=== PATIENT | male | born 1940 | race Caucasian/White ===

== ENCOUNTER 2017-09-29 11:27 | Emergency (ER) | payer MEDICARE, OTHER ==
[2017-09-29 11:37] VITALS: BP 155/62
--- NOTE | 2017-09-29 12:54 | EDM.PDOC ---
ED HPI GENERAL MEDICAL PROBLEM - General Chief Complaint: Lower Extremity Injury/Pain Stated Complaint: R KNEE PAIN Time Seen by Provider: 09/29/17 11:47 Source of Information: Reports: Patient History Limitations: Reports: No Limitations - History of Present Illness INITIAL COMMENTS - FREE TEXT/NARRATIVE: The patient presents with right knee pain. He was stepping down today and he felt pain in his right knee. He did not step wrong and he did not twist his knee. He has no other injury. He has no history of troubles with that knee. Onset: Sudden Duration: Hour(s): (This morning) Location: Reports: Lower Extremity, Right (Knee) Quality: Reports: Sharp Severity: Moderate Improves with: Reports: Immobilization Worsens with: Reports: Movement Associated Symptoms: Reports: No Other Symptoms Right Knee Pain Score (Numeric/FACES): 4 - Related Data Allergies Allergy/AdvReac Type Severity Reaction Status Date / Time PRANEETH Inhibitors Allergy Severe Other Verified 09/29/17 11:36 meperidine HCl [From Demerol] Allergy Hypotension Verified 09/29/17 11:36 Home Meds: Home Meds Albuterol Sulfate [Albuterol Sulfate HFA] 2 puff INH Q6HR PRN 06/29/14 [History] Budesonide/Formoterol [Symbicort 80-4.5 MCG] 2 puff INH BID 06/29/14 [History] Xqrhwut-Kjg-Ilflzoh D 500 mg PO DAILY 06/29/14 [History] Lisinopril 10 mg PO DAILY 06/29/14 [History] Metoprolol Succinate 75 mg PO DAILY 06/29/14 [History] Multivitamin [Multi-Vitamin Daily] 1 tab PO DAILY 06/29/14 [History] [place]-3 Fatty Acids [[place]-3] 1,000 mg PO DAILY 06/29/14 [History] Vitamin B Complex 1 tab PO BID 06/29/14 [History] Escitalopram [Lexapro] 10 mg PO DAILY 04/14/15 [History] Apixaban [Eliquis] 5 mg PO BID 09/01/15 [History] Aspirin [Adult Low Dose Aspirin EC] 81 mg PO DAILY 09/01/15 [History] Benzonatate [Tessalon Perles] 200 mg PO TID PRN 7 Days cap 09/04/15 [Rx] Levofloxacin [Levaquin] 750 mg PO DAILY #7 tablet 09/04/15 [Rx] guaiFENesin [Mucinex] 1,200 mg PO BID 7 Days tab.er 09/04/15 [Rx] predniSONE 10 mg PO WITHBREAKFAST 7 Days tablet 09/04/15 [Rx] Past Medical History HEENT History: Reports: Impaired Vision Cardiovascular History: Reports: Afib, Bypass, CAD, Hypertension, Pacemaker, Other (See Below) Other Cardiovascular History: dizziness Respiratory History: Reports: Other (See Below) Other Respiratory History: pt uses 2 pillows to sleep-has c-pap at home Musculoskeletal History: Reports: Back Pain, Chronic, Other (See Below) Other Musculoskeletal History: low back surgery Neurological History: Reports: CVA Psychiatric History: Reports: Anxiety, Other (See Below) Other Psychiatric History: claustophobic Endocrine/Metabolic History: Reports: Hypothyroidism - Past Surgical History GI Surgical History: Reports: Cholecystectomy, Hernia, Abdominal Social & Family History - Family History Family Medical History: Noncontributory - Tobacco Use Smoking Status *Q: Former Smoker Used Tobacco, but Quit: Yes Month/Year Tobacco Last Used: 45 years - Caffeine Use Caffeine Use: Reports: Coffee - Recreational Drug Use Recreational Drug Use: No Review of Systems - Review of Systems Review Of Systems: See Below Constitutional: Reports: No Symptoms Eyes: Reports: No Symptoms Ears: Reports: No Symptoms Nose: Reports: No Symptoms Mouth/Throat: Reports: No Symptoms Respiratory: Reports: No Symptoms Cardiovascular: Reports: No Symptoms GI/Abdominal: Reports: No Symptoms Genitourinary: Reports: No Symptoms Musculoskeletal: Reports: Joint Pain (Right knee) Skin: Reports: No Symptoms ED EXAM, GENERAL - Physical Exam Exam: See Below Exam Limited By: No Limitations General Appearance: Alert, No Apparent Distress Ears: Normal External Exam Nose: Normal Inspection Head: Atraumatic, Normocephalic Neck: Normal Inspection Respiratory/Chest: No Respiratory Distress Extremities: Other (No pain upon palpation. No edema. Ligaments are stable. Good sensation and pulses distally.) Course - Vital Signs Last Recorded V/S: Last Vital Signs Temp 98.7 F 09/29/17 11:32 Pulse 59 L 09/29/17 11:32 Resp 18 09/29/17 11:32 BP 155/62 H 09/29/17 11:32 Pulse Ox 93 L 09/29/17 11:32 - Orders/Labs/Meds Orders: Active Orders 24 hr Category Date Time Status Knee Min 4V Rt [CR] Stat Exams 09/29/17 11:58 Taken - Re-Assessments/Exams Free Text/Narrative Re-Assessment/Exam: 09/29/17 12:51 I did an x-ray and there is some mild arthritis. He sprained his knee. I will get him in a knee immobilizer and have him follow up with Dr Null. Departure - Departure Time of Disposition: 12:55 Disposition: Home, Self-Care 01 Condition: Good Clinical Impression: Sprain of right knee Qualifiers: Encounter type: initial encounter Involved ligament of knee: unspecified ligament Qualified Code(s): S83.91XA - Sprain of unspecified site of right knee , initial encounter - Discharge Information Referrals: Jewels Tadeo MD [Primary Care Provider] - Edy Null MD [Physician] - 1 Week Additional Instructions: Ice your knee for 15 minutes 3 times per day for 3 days. Wear the knee immobilizer for a couple days for support and comfort. Take tylenol or motrin for pain. Follow up with Dr Null. - My Orders Last 24 Hours: My Active Orders 09/29/17 11:58 Knee Min 4V Rt [CR] Stat - Assessment/Plan Last 24 Hours: My Active Orders 09/29/17 11:58 Knee Min 4V Rt [CR] Stat
--- NOTE | 2017-09-29 14:44 | CR ---
Right knee: Four views of the right knee were obtained. Comparison: No prior right knee radiograph, previous CT right knee exam of 11/12/10. Medial and lateral joint spaces are preserved. Slight deformity is noted of the lateral tibial plateau compatible with previous fracture which appears to be healed. Vascular calcification is noted. Minimal joint effusion is seen. Slight calcification within the distal quadriceps tendon at the insertion to the patella is noted. Nothing acute is appreciated. Impression: 1. Small joint effusion. 2. Other incidental findings. No acute bony abnormality is identified on right knee exam. Diagnostic code #2
== END 2017-09-29 13:20 | disposition home or self-care (01) ==
LOC: JD.ED 11:27
DX: S83.91XA Sprain of unspecified site of right knee, initial encounter (principal); I48.91 Unspecified atrial fibrillation; I10 Essential (primary) hypertension; F41.9 Anxiety disorder, unspecified; E03.9 Hypothyroidism, unspecified; Z87.891 Personal history of nicotine dependence; Z88.8 Allergy status to other drugs, medicaments and biological substances; Z79.82 Long term (current) use of aspirin; Z95.0 Presence of cardiac pacemaker; Z86.73 Personal history of transient ischemic attack (TIA), and cerebral infarction without residual deficits; Z79.899 Other long term (current) drug therapy; Z95.1 Presence of aortocoronary bypass graft; X50.9XXA Other and unspecified overexertion or strenuous movements or postures, initial encounter
CPT/HCPCS: 73564-26-RT; 73564-RT; 99283

== ENCOUNTER 2018-07-06 21:09 | Inpatient (IN) | payer MEDICARE, OTHER ==
--- NOTE | 2018-07-06 22:09 | EDM.PDOC ---
ED HPI GENERAL MEDICAL PROBLEM - General Chief Complaint: Respiratory Problem Stated Complaint: [facility] Time Seen by Provider: 07/06/18 22:03 Source of Information: Reports: Patient, Family (), RN Notes Reviewed History Limitations: Reports: Physical Impairment (Patient weakness, tiredness) - History of Present Illness INITIAL COMMENTS - FREE TEXT/NARRATIVE: The history is quite limited, as the patient's and her hide and skin classer do not really know what happened to the patient that caused him to come to the ED, and the patient is only minimally communicative, stating that he is freezing cold. As best I can tell, the patient was doing well all day, then started feeling cold around 19:00 to 19:30. He started shivering, and complained of feeling short of breath. He asked to have an ambulance called. The patient has a chronic cough, productive of clear sputum, but states that it is no different now than it usually is. No recent nausea, vomiting, constipation , diarrhea, or urinary symptoms. No recent chest pain or palpitations. The patient has a history of congestive heart failure, but denies orthopnea. The patient states that he has had similar symptoms several times in the past - about once a year - but states that they are self-limited, and he has not previously had a medical evaluation of his symptoms. The patient does not have a diagnosis of underlying lung disease, although there is some suspicion that he might have COPD. He has obstructive sleep apnea , for which she uses nightly CPAP with supplemental oxygen set at 2 L. He does not wear oxygen during the day. The patient also has a history of a prior stroke, that the patient states caused swallowing difficulties. He states that he does not eat a special diet or thicken his liquids. Here in the ED, the patient's temperature is found to be elevated at 104.2, with an oxygen saturation of 87% on room air, up to 94% on 1.5 L per nasal cannula. He is tachypneic, although not tachycardic. The patient's PCP is Dr. Jewels Tadeo. The patient sees a Sales Review Clerk in [place], whose name he does not recall. The patient's vaccinations are up-to-date, including an influenza vaccine this season. - Related Data Allergies Allergy/AdvReac Type Severity Reaction Status Date / Time PRANEETH Inhibitors Allergy Severe Other Verified 07/06/18 21:18 meperidine HCl [From Demerol] Allergy Hypotension Verified 07/06/18 21:18 Home Meds: Home Meds Albuterol Sulfate [Albuterol Sulfate HFA] 2 puff INH Q6HR PRN 06/29/14 [History] Budesonide/Formoterol [Symbicort 80-4.5 MCG] 2 puff INH BID 06/29/14 [History] Vkmpfnx-Vrk-Nctbeyd D 500 mg PO DAILY 06/29/14 [History] Lisinopril 10 mg PO DAILY 06/29/14 [History] Metoprolol Succinate 75 mg PO DAILY 06/29/14 [History] Multivitamin [Multi-Vitamin Daily] 1 tab PO DAILY 06/29/14 [History] [place]-3 Fatty Acids [[place]-3] 1,000 mg PO DAILY 06/29/14 [History] Vitamin B Complex 1 tab PO BID 06/29/14 [History] Escitalopram [Lexapro] 10 mg PO DAILY 04/14/15 [History] Apixaban [Eliquis] 5 mg PO BID 09/01/15 [History] Aspirin [Adult Low Dose Aspirin EC] 81 mg PO DAILY 09/01/15 [History] Benzonatate [Tessalon Perles] 200 mg PO TID PRN 7 Days cap 09/04/15 [Rx] Levofloxacin [Levaquin] 750 mg PO DAILY #7 tablet 09/04/15 [Rx] guaiFENesin [Mucinex] 1,200 mg PO BID 7 Days tab.er 09/04/15 [Rx] predniSONE 10 mg PO WITHBREAKFAST 7 Days tablet 09/04/15 [Rx] Past Medical History HEENT History: Reports: Impaired Vision Cardiovascular History: Reports: Afib (paroxysmal), CAD, Heart Failure, Hypertension, [place] (around 2008) Respiratory History: Reports: Sleep Apnea (nightly CPAP + 2L O2) Musculoskeletal History: Reports: Back Pain, Chronic Neurological History: Reports: CVA (resulting in swallowing difficulty) Psychiatric History: Reports: Anxiety Endocrine/Metabolic History: Reports: Hypothyroidism, Obesity/BMI 30+ - Past Surgical History Cardiovascular Surgical History: Reports: Coronary Artery Bypass (x 2 vessel, around 2008), Pacer GI Surgical History: Reports: Cholecystectomy, Hernia, Inguinal (bilateral) Neurological Surgical History: Reports: Lumbar Spine Social & Family History - Family History Family Medical History: Noncontributory - Tobacco Use Smoking Status *Q: Former Smoker Month/Year Tobacco Last Used: Quit around 1974 - Caffeine Use Caffeine Use: Reports: Coffee - Alcohol Use Alcohol Use History: No - Recreational Drug Use Recreational Drug Use: No - Living Situation & Occupation Living situation: Reports: , with Spouse Occupation: Retired ED ROS GENERAL - Review of Systems Review Of Systems: ROS reveals no pertinent complaints other than HPI. ED EXAM, GENERAL - Physical Exam Exam: See Below Exam Limited By: No Limitations General Appearance: WD/WN, No Apparent Distress, Lethargic Eye Exam: Bilateral Eye: EOMI, Normal Inspection Ears: Normal External Exam, Hearing Grossly Normal Nose: Normal Inspection Throat/Mouth: Normal Inspection, Normal Lips, Normal Voice, No Airway Compromise Head: Atraumatic, Normocephalic Neck: Normal Inspection, Full Range of Motion Respiratory/Chest: No Respiratory Distress, Lungs Clear, Normal Breath Sounds, No Accessory Muscle Use. No: Decreased Breath Sounds, Crackles, Rhonchi, Wheezing, Prolonged Expiration Cardiovascular: Normal Peripheral Pulses, Regular Rate, Rhythm, No Gallop, No JVD, No Murmur, No Rub Peripheral Pulses: 4+: Radial (L), Radial (R) GI/Abdominal: Normal Bowel Sounds, Soft, Non-Tender, No Organomegaly, No Distention, No Abnormal Bruit, No Mass, Other (Obese) (Male) Exam: Deferred Rectal (Males) Exam: Deferred Back Exam: Normal Inspection, Full Range of Motion, NT Extremities: Normal Inspection, Normal Range of Motion, Normal Capillary Refill , Other (Trace bilateral pretibial edema) Neurological: No Motor/Sensory Deficits, Other (Lethargic, but does answer some questions) Skin Exam: Warm, Dry, Intact, Normal Color, No Rash EKG INTERPRETATION EKG Date: 07/06/18 Time: 21:41 Rhythm: Other (Atrially sensed, possibly atrially paced, ventricularly paced) Rate (Beats/Min): 60 Comparison: No Change (09/01/2015) Course - Vital Signs Last Recorded V/S: Last Vital Signs Temp 40.1 C H 07/06/18 21:16 Pulse 61 07/06/18 21:16 Resp 28 H 07/06/18 21:16 BP 141/94 H 07/06/18 21:16 Pulse Ox 87 L 07/06/18 21:16 - Orders/Labs/Meds Orders: Active Orders 24 hr Category Date Time Status EKG 12 Lead [EKG Documentation Completion] [RC] STAT Care 07/06/18 21:28 Active CXR [Chest 1V Frontal] [CR] Stat Exams 07/06/18 21:28 Taken CULTURE BLOOD [BC] Stat Lab 07/06/18 22:31 Ordered CULTURE BLOOD [BC] Stat Lab 07/06/18 22:31 Ordered LACTIC ACID [CHEM] Stat Lab 07/06/18 22:29 Ordered Blood Culture x2 Reflex Set [OM.PC] Stat Oth 07/06/18 22:29 Ordered Labs: Laboratory Tests 07/06/18 07/06/18 07/06/18 Range/Units 21:15 21:15 21:15 WBC 22.23 H (4.23-9.07) K/mm3 RBC 4.76 (4.63-6.08) M/mm3 Hgb 14.0 (13.7-17.5) gm/L Hct 44.2 (40.1-51.0) % MCV 92.9 H (79.0-92.2) fl MCH 29.4 (25.7-32.2) pg MCHC 31.7 L (32.2-35.5) g/dl RDW Std Deviation 43.6 (35.1-43.9) fL Plt Count 257 (163-337) K/mm3 MPV 11.1 (9.4-12.3) fl Neutrophils % (Manual) 86 H (40-60) % Band Neutrophils % 0 (0-10) % Lymphocytes % (Manual) 8 L (20-40) % Atypical Lymphs % 0 % Monocytes % (Manual) 6 (2-10) % Eosinophils % (Manual) 0 L (0.8-7.0) % Basophils % (Manual) 0 L (0.2-1.2) Platelet Estimate Adequate RBC Morph Comment Normal Puncture Site ABG pH (7.35-7.45) ABG pCO2 (35.0-45.0) mmHg ABG pO2 (80.0-100.0) mmHg ABG HCO3 (22.0-26.0) meq/L ABG O2 Saturation (96.0-97.0) % ABG Base Excess (-2-2.0) Julián Test A-a Gradient mmHg O2 Delivery Device Oxygen Flow Rate Sodium 141 (136-145) mEq/L Potassium 4.6 (3.5-5.1) mEq/L Chloride 102 (98-107) mEq/L Carbon Dioxide 27 (21-32) mEq/L Anion Gap 16.6 H (5-15) BUN 52 H (7-18) mg/dL Creatinine 2.0 H (0.7-1.3) mg/dL Est Cr Clr Drug Dosing 35.51 mL/min Estimated GFR (MDRD) 33 (>60) mL/min BUN/Creatinine Ratio 26.0 H (14-18) Glucose 125 H (83-115) mg/dL Calcium 9.6 (8.5-10.1) mg/dL Magnesium 2.2 (1.8-2.4) mg/dl Total Bilirubin 0.4 (0.2-1.0) mg/dL AST 19 (15-37) U/L ALT 39 (16-63) U/L Alkaline Phosphatase 71 (46-116) U/L Troponin I < 0.017 (0.00-0.056) ng/mL NT-Pro-B Natriuret Pep (0-450) pg/mL Total Protein 7.9 (6.4-8.2) g/dl Albumin 4.0 (3.4-5.0) g/dl Globulin 3.9 gm/dL Albumin/Globulin Ratio 1.0 (1-2) Urine Color (Yellow) Urine Appearance (Clear) Urine pH (5.0-8.0) Ur Specific [place] (1.005-1.030) Urine Protein (Negative) Urine Glucose (UA) (Negative) Urine Ketones (Negative) Urine Occult Blood (Negative) Urine Nitrite (Negative) Urine Bilirubin (Negative) Urine Urobilinogen (0.2-1.0) Ur Leukocyte Esterase (Negative) Urine RBC (0-5) /hpf Urine WBC (0-5) /hpf Ur Epithelial Cells Ur Squamous Epith Cells (0-5) /hpf Amorphous Sediment (NOT SEEN) /hpf Urine Bacteria (FEW) /hpf Hyaline Casts (0-5) /lpf Urine Mucus (FEW) /hpf 07/06/18 07/06/18 07/06/18 Range/Units 21:15 23:12 23:13 WBC (4.23-9.07) K/mm3 RBC (4.63-6.08) M/mm3 Hgb (13.7-17.5) gm/L Hct (40.1-51.0) % MCV (79.0-92.2) fl MCH (25.7-32.2) pg MCHC (32.2-35.5) g/dl RDW Std Deviation (35.1-43.9) fL Plt Count (163-337) K/mm3 MPV (9.4-12.3) fl Neutrophils % (Manual) (40-60) % Band Neutrophils % (0-10) % Lymphocytes % (Manual) (20-40) % Atypical Lymphs % % Monocytes % (Manual) (2-10) % Eosinophils % (Manual) (0.8-7.0) % Basophils % (Manual) (0.2-1.2) Platelet Estimate RBC Morph Comment Puncture Site Lt radial ABG pH 7.44 (7.35-7.45) ABG pCO2 33.8 L (35.0-45.0) mmHg ABG pO2 63.0 L (80.0-100.0) mmHg ABG HCO3 22.4 (22.0-26.0) meq/L ABG O2 Saturation 92.6 L (96.0-97.0) % ABG Base Excess -0.6 (-2-2.0) Jul[place]án Test Positive A-a Gradient 61 mmHg O2 Delivery Device Nasal cannula Oxygen Flow Rate 1.5 Sodium (136-145) mEq/L Potassium (3.5-5.1) mEq/L Chloride (98-107) mEq/L Carbon Dioxide (21-32) mEq/L Anion Gap (5-15) BUN (7-18) mg/dL Creatinine (0.7-1.3) mg/dL Est Cr Clr Drug Dosing mL/min Estimated GFR (MDRD) (>60) mL/min BUN/Creatinine Ratio (14-18) Glucose (83-115) mg/dL Calcium (8.5-10.1) mg/dL Magnesium (1.8-2.4) mg/dl Total Bilirubin (0.2-1.0) mg/dL AST (15-37) U/L ALT (16-63) U/L Alkaline Phosphatase (46-116) U/L Troponin I (0.00-0.056) ng/mL NT-Pro-B Natriuret Pep 810 H (0-450) pg/mL Total Protein (6.4-8.2) g/dl Albumin (3.4-5.0) g/dl Globulin gm/dL Albumin/Globulin Ratio (1-2) Urine Color Yellow (Yellow) Urine Appearance Clear (Clear) Urine pH 5.5 (5.0-8.0) Ur Specific [place] 1.020 (1.005-1.030) Urine Protein 1+ H (Negative) Urine Glucose (UA) Negative (Negative) Urine Ketones Negative (Negative) Urine Occult Blood Negative (Negative) Urine Nitrite Negative (Negative) Urine Bilirubin Negative (Negative) Urine Urobilinogen 0.2 (0.2-1.0) Ur Leukocyte Esterase Negative (Negative) Urine RBC 0-5 (0-5) /hpf Urine WBC 0-5 (0-5) /hpf Ur Epithelial Cells Not Reportable Ur Squamous Epith Cells 0-5 (0-5) /hpf Amorphous Sediment Few H (NOT SEEN) /hpf Urine Bacteria Few (FEW) /hpf Hyaline Casts 0-5 (0-5) /lpf Urine Mucus Few (FEW) /hpf Meds: Medications Discontinued Medications Generic Name Dose Route Start Last Admin Trade Name Treyq PRN Reason Stop Dose Admin Furosemide 40 mg 07/06/18 22:12 07/06/18 22:44 Lasix IVPUSH 07/06/18 22:13 40 mg NOW ONE Administration Ondansetron HCl 4 mg 07/06/18 23:39 07/06/18 23:43 Zofran IVPUSH 07/06/18 23:40 4 mg ONETIME ONE Administration - Re-Assessments/Exams Free Text/Narrative Re-Assessment/Exam: 07/06/18 22:07 Portable chest radiograph reviewed. There appears to be cardiomegaly and pulmonary vascular congestion, consistent with decompensated CHF. No pleural effusion seen on this AP view. No focal infiltrate seen. No pneumothorax. Sternotomy wires and left upper quadrant surgical basilia incidentally noted. Left-sided dual-chamber pacemaker incidentally noted. Formal read per the Radiologist pending. 07/07/18 00:05 Notified that the patient has refused to have a lactic acid level or blood cultures drawn, despite being told of their importance. 07/07/18 00:22 The patient's WBC count has returned elevated at 22.23, but with 0% bandemia. The remainder of his CBC is unremarkable. His CMP is remarkable for a BUN/Cr elevated at 52/2.0. They were 45/1.2 on 2015. His blood glucose is mildly elevated at 125. The remainder of his CRP is unremarkable. His magnesium level is normal. His troponin is undetectable below. His pro-BNP is modestly elevated at 810. His ABG finds acute on chronic respiratory alkalosis and hypoxemia. His urinalysis is normal. His influenza swab returned negative. His ECG appears to show a paced rhythm. The cause of the patient's fever and chills is unclear. It is possible that he aspirated, although I do not see a distinct pneumonia. Given the degree of his malaise, I think it would be prudent to start him on antibiotics and place him in observation. I will start him on IV Rocephin and azithromycin. 07/07/18 00:32 Test results and my recommendation to place the patient into observation was discussed with the patient's family. They are agreeable. Case then discussed with Dr. Gerber at 00:30. He agreed to place the patient into observation, and asked that I write bridge orders. Departure - Departure Time of Disposition: 00:33 Disposition: Refer to Observation Condition: Fair Clinical Impression: Fever, CHF exacerbation, Renal insufficiency, Hypoxemia - Discharge Information *PRESCRIPTION DRUG MONITORING PROGRAM REVIEWED*: Not Applicable *COPY OF PRESCRIPTION DRUG MONITORING REPORT IN PATIENT TRU: Not Applicable Referrals: Jewels Tadeo MD [Primary Care Provider] - - My Orders Last 24 Hours: My Active Orders 07/06/18 21:28 EKG 12 Lead [EKG Documentation Completion] [RC] STAT CXR [Chest 1V Frontal] [CR] Stat 07/06/18 22:29 LACTIC ACID [CHEM] Stat Blood Culture x2 Reflex Set [OM.PC] Stat 07/06/18 22:31 CULTURE BLOOD [BC] Stat CULTURE BLOOD [BC] Stat - Assessment/Plan Last 24 Hours: My Active Orders 07/06/18 21:28 EKG 12 Lead [EKG Documentation Completion] [RC] STAT CXR [Chest 1V Frontal] [CR] Stat 07/06/18 22:29 LACTIC ACID [CHEM] Stat Blood Culture x2 Reflex Set [OM.PC] Stat 07/06/18 22:31 CULTURE BLOOD [BC] Stat CULTURE BLOOD [BC] Stat
[2018-07-06] MEDS ORDERED: Furosemide 40 MG/4 ML VIAL IVPUSH ONE (22:12)
[2018-07-06] MEDS ORDERED: Ondansetron 4 MG/2 ML SDV IVPUSH ONE (23:39)
[2018-07-07] MEDS ORDERED: Azithromycin 500 MG in Sodium Chloride 0.9% 250 ML IV ONE (00:28)
[2018-07-07] MEDS ORDERED: cefTRIAXone 2 GM in Sodium Chloride 0.9% 100 ML IV SCH (00:30)
[2018-07-07] MEDS: Acetaminophen 325 MG Tab PO PRN ×2 (04:41→14:21)
[2018-07-07] MEDS ORDERED: Sodium Chloride 0.9% 1,000 ML IV SCH ×3 (06:00→18:30)
--- NOTE | 2018-07-07 07:00 | PCM.SN ---
- Free Text/Narrative Note: Patient seen and examined at bedside after I was called by night charge nurse for sepsis alert. He was admitted for fever of unknown origin but despite receiving 2 intravenous antibiotics, he had persistent fever until 5 AM this morning. He was hypoxic on presentation with a documented O2 Saturation of 87% on 2-3 L of supplemental O2. His WBC had increased from 22k to 33 on repeat lab. His RR had been in the 24-28. His LA level was 2.5. He was confused on presentation but seems to be better now. Updated his daughter about his probable diagnosis and the need to run more tests to support a definitive diagnosis. I asked permission from his daughter for chest CT scan since his x- ray study was poor in quality and she agreed to have it done since. At this point, he clearly meets criteria for Sepsis. We will change his antibiotic regimen and order procalcitonin level.
[2018-07-07] MEDS ORDERED: hydrALAZINE 20 MG/ML SDV IVPUSH PRN (07:03)
[2018-07-07] MEDS ORDERED: Metoprolol Tartrate 5 MG/5 ML SDV IVPUSH PRN (07:03)
[2018-07-07] MEDS ORDERED: Albuterol/Ipratropium 3.0-0.5 MG/3 ML Neb Soln NEB PRN (07:08)
[2018-07-07] MEDS ORDERED: Acetaminophen/HYDROcodone 325-5 MG Tab PO PRN (07:08)
[2018-07-07] MEDS ORDERED: LORazepam 2 MG/ML SDV IV PRN (07:08)
[2018-07-07] MEDS ORDERED: HYDROmorphone 1 MG/ML Syringe IVPUSH PRN (07:08)
[2018-07-07] MEDS ORDERED: Polyethylene Glycol 3350 Powder 17 GM Packet PO PRN (07:08)
[2018-07-07] MEDS ORDERED: Bisacodyl 5 MG Tab PO PRN (07:08)
[2018-07-07] MEDS ORDERED: Ondansetron 4 MG/2 ML SDV IV PRN (07:08)
--- NOTE | 2018-07-07 07:10 | CR ---
Chest: Frontal view of the chest was obtained. Comparison: Prior chest x-ray of 09/03/15. Elevated left hemidiaphragm is seen which appears chronic. This causes mild left basilar atelectasis. Pulmonary vessels are slightly congested which appears to be chronic. Heart is enlarged. Previous sternotomy is noted. Pacemaker is present. Bony structures are grossly intact. Impression: 1. Chronic pulmonary vascular congestion and other findings as noted above. Diagnostic code #2
[2018-07-07] MEDS ORDERED: Vancomycin 500 MG SDV IV SCH (07:15)
[2018-07-07] MEDS ORDERED: Piperacillin/Tazobactam 4.5 GM in Sodium Chloride 0.9% 100 ML IV ONE (08:30)
--- NOTE | 2018-07-07 08:38 | PCM.HP ---
H&P History of Present Illness - General Date of Service: 07/07/18 Admit Problem/Dx: Admission Diagnosis/Problem Admission Diagnosis/Problem Fever Source of Information: Patient, Old Records, Provider, RN, RN Notes Reviewed History Limitations: Reports: No Limitations - History of Present Illness Initial Comments - Free Text/Narative: Darrick Dougherty is a 77 yo male who presents to our ED on 07/06/18 with shortness of breath. In the ED he is accompanied by his and both are very poor historians. He reports that he is very cold and apparently started feeling poor around [id number]. He complained of shivering and feeling short of breath and requested an ambulance be called. His chronic cough with clear sputum but states is no different now than usual. Denies recent nausea, vomiting, constipation, diarrhea, urinary symptoms. Denies chest pain or palpitations. Reports he does have a history of heart failure but denies orthopnea. Reports that he has had similar symptoms in the past. Reports this occurs about once a year and is usually self-limited. He has not had a prior medical evaluation for these symptoms. Diagnosis underlying lung disease although it is felt he may have an underlying COPD. He has GRABIEL and uses CPAP nightly supplement oxygen at 2 L. Does not wear oxygen during the day. He does have a previous history of a prior stroke and does have some residual swallowing difficulties. He does not eat a special diuretic thickened liquids in the ED his temperature is 104.2 with an oxygen saturation of 87% on room air. He is placed on 1.5 L via nasal cannula and his saturations increased to 94%. He is to But not tachycardic. He does report a see a silviculture professor in [place] but does not recall the name. Vaccinations are up-to-date and he did get an influenza vaccine this season. In the ED pulse is 61. Her respirations 28. Blood pressure 141/94. Pulse ox 87%. 12-lead EKG shows a paced rhythm at 60 bpm with no change since 09/01/15. Labs are obtained showing WBC of 22.23. Hemoglobin 14.0. Hematocrit 44.2. He is macrocytic. Platelets 237,000. Neutrophils are elevated at 86%. There is no bandemia. Sodium is 141. Potassium 4.6. Chloride 102. I would ask at 27. Anion gap 16.6. BUN is 52. Creatinine 2.0. EGFR 33. Glucose is 125. Calcium 9.6. Magnesium 2.2. Bilirubin 0.4. AST is 19, ALT 39, alkaline phosphatase 71. Troponin less than 0.017. Protein 7.9. Albumin 4.0. ABGs obtained in the right radial showing a pH of 7.44. PCO2 is 33.8. PO2 is low at 63. Bicarbonate 22.4. Oxygen saturation 92.6. Base excess -0.6. This is on 1.5 L via nasal cannula. ProBNP is 810. UA is negative however one plus protein and few amorphus sediment is noted. Chest x-ray is interpreted by Dr. Nails is having an "elevated left hemidiaphragm which appears chronic causing mild left basilar atelectasis. Polio vessels are slightly congestion which appears chronic. Heart is enlarged. Previous sternotomy is noted. Pacemaker is present. Bony structures grossly intact." Patient initially refuses blood cultures and lactic acid the blood draw even after being told of the importance. Influenza screen is negative. He carries a history of: Paroxysmal A. 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 He did undergo a coronary artery bypass 2 vessels around 2008. He is a former smoker. His PCP is Dr. Jewels Tadeo. - Related Data Allergies/Adverse Reactions: Allergies Allergy/AdvReac Type Severity Reaction Status Date / Time PRANEETH Inhibitors AdvReac Intermediate Other Verified 07/07/18 08:20 meperidine HCl [From Demerol] AdvReac Hypotension Verified 07/07/18 08:19 Home Medications: Home Meds Acetaminophen [Tylenol] 1 - 2 tab PO Q6HR PRN 07/07/18 [History] Albuterol Sulfate [Albuterol Sulfate Hfa] 2 puff INH TID 07/07/18 [History] Apixaban [Eliquis] 5 mg PO BID 07/07/18 [History] Aspirin [Tia Chewable Aspirin] 81 mg PO DAILY 07/07/18 [History] Calc/D3/Mag/Zn/Space Officer/[place] [Calcium 600 MG Plus Vit D] 1 tab PO DAILY [History] Cyactiv. 6 tab PO DAILY 07/07/18 [History] Escitalopram Oxalate 10 mg PO DAILY 07/07/18 [History] Fluticasone/Vilanterol [Breo Ellipta 100-25 MCG Inhalation Kit] 1 puff INH DAILY 07/07/18 [History] Furosemide [Lasix] 80 mg PO DAILY 07/07/18 [History] Lisinopril 5 mg PO DAILY 07/07/18 [History] Metoprolol Succinate [Toprol Xl] 100 mg PO BID 07/07/18 [History] Montelukast Sodium 10 mg PO BEDTIME 07/07/18 [History] Multivit-Min/Iron Fum/Folic AC [Itcxk-Cmggaos-Tfyhwlha Tablet] 1 tab PO DAILY [History] [place]-3/DHA/Epa/Fish Oil [[place]-3 Fish Oil 1,000 MG Sfgl] 2,000 mg PO DAILY [History] Plasmaflo. 2 tab PO DAILY 07/07/18 [History] Rosuvastatin Calcium 20 mg PO DAILY 07/07/18 [History] Stem Cell. 6 tab PO DAILY 07/07/18 [History] Vitamin B Complex 1 tab PO BID 07/07/18 [History] amLODIPine [Norvasc] 5 mg PO DAILY 07/07/18 [History] guaiFENesin [Mucinex] 1,200 mg PO BID 07/07/18 [History] guanFACINE 1 mg PO BEDTIME 07/07/18 [History] Past Medical History HEENT History: Reports: Impaired Vision Cardiovascular History: Reports: Afib, Bypass, CAD, Heart Failure, Heart Murmur , Hypertension, [place], Pacemaker, Stents Other Cardiovascular History: dizziness Respiratory History: Reports: COPD, Pneumonia, Recurrent, Sleep Apnea, SOB Other Respiratory History: pt uses 2 pillows to sleep-has c-pap at home Genitourinary History: Reports: None Musculoskeletal History: Reports: Arthritis, Back Pain, Chronic Other Musculoskeletal History: low back surgery Neurological History: Reports: CVA, Neuropathy, Peripheral, Vertigo Psychiatric History: Reports: Anxiety, Depression, Panic Attack Other Psychiatric History: claustophobic Endocrine/Metabolic History: Reports: Hypothyroidism, Obesity/BMI 30+ - Infectious Disease History Infectious Disease History: Reports: Chicken Pox, Shingles - Past Surgical History HEENT Surgical History: Reports: Cataract Surgery, Other (See Below) Other HEENT Surgeries/Procedures: Bilateral Cardiovascular Surgical History: Reports: Coronary Artery Bypass, Pacer Respiratory Surgical History: Reports: None GI Surgical History: Reports: Cholecystectomy, Hernia, Inguinal Male Surgical History: Reports: None Endocrine Surgical History: Reports: None Neurological Surgical History: Reports: Lumbar Spine Musculoskeletal Surgical History: Reports: None Social & Family History - Family History Family Medical History: Noncontributory - Tobacco Use Smoking Status *Q: Former Smoker Years of Tobacco use: 20 Used Tobacco, but Quit: Yes Month/Year Tobacco Last Used: 40 years ago Second Hand Smoke Exposure: No - Caffeine Use Caffeine Use: Reports: Coffee - Recreational Drug Use Recreational Drug Use: No - Living Situation & Occupation Living situation: Reports: , with Spouse Occupation: Retired H&P Review of Systems - Review of Systems: Review Of Systems: See Below General: Reports: Fever, Chills, Malaise, Weakness. Denies: Fatigue, Night Sweats, Diaphoresis HEENT: Reports: No Symptoms. Denies: Headaches, Rhinitis, Vertigo Pulmonary: Reports: Shortness of Breath (chronic and at baseline currently ), Cough (chronic ). Denies: Wheezing, Sputum Cardiovascular: Reports: Dyspnea on Exertion. Denies: Chest Pain, Palpitations , Orthopnea, Edema, Lightheadedness, Claudication Gastrointestinal: Reports: No Symptoms. Denies: Abdominal Pain, Constipation, Diarrhea, Nausea, Vomiting Genitourinary: Reports: No Symptoms. Denies: Pain Musculoskeletal: Reports: No Symptoms Skin: Reports: No Symptoms Psychiatric: Reports: No Symptoms Neurological: Reports: No Symptoms. Denies: Confusion, Difficulty Walking, Gait Disturbance Hematologic/Lymphatic: Reports: No Symptoms Immunologic: Reports: No Symptoms Exam - Exam Exam: See Below - Vital Signs Vital Signs: Last Vital Signs Temp 102.5 F H 07/07/18 04:45 Pulse 60 07/07/18 06:03 Resp 24 H 07/07/18 03:34 BP 150/58 H 07/07/18 03:34 Pulse Ox 94 L 07/07/18 06:03 Weight: 290 lb 1.6 oz - Exam Quality Assessment: Supplemental Oxygen, DVT Prophylaxis General: Alert, Oriented, Cooperative. No: Mild Distress HEENT: Conjunctiva Clear, EACs Clear, EOMI, Hearing Intact, Mucosa Moist & [place] , Normal Nasal Septum, Posterior Pharynx Clear, PERRLA Neck: Supple, Trachea Midline Lungs: Clear to Auscultation, Normal Respiratory Effort, Decreased Breath Sounds. No: Rales, Rhonchi, Rub, Stridor, Wheezing Cardiovascular: Regular Rate, Regular Rhythm, Other (Pacemaker present ) GI/Abdominal Exam: Normal Bowel Sounds, Soft, Non-Tender, No Organomegaly, No Distention (Male) Exam: Deferred Rectal (Males) Exam: Deferred Back Exam: Normal Inspection, Full Range of Motion Extremities: Normal Inspection, Normal Range of Motion, Non-Tender, Normal Capillary Refill, Pedal Edema (trace) Peripheral Pulses: 2+: Radial (L), Radial (R), Dorsalis Pedis (L), Dorsalis Pedis (R) Skin: Warm, Dry, Intact Neurological: Cranial Nerves Intact (grossly ) Neuro Extensive - Mental Status: Alert, Oriented x3, Normal Mood/Affect, Normal Cognition - Patient Data Lab Results Last 24 hrs: Laboratory Results - last 24 hr 07/06/18 07/06/18 07/06/18 Range/Units 21:15 21:15 21:15 WBC 22.23 H (4.23-9.07) K/mm3 RBC 4.76 (4.63-6.08) M/mm3 Hgb 14.0 (13.7-17.5) gm/L Hct 44.2 (40.1-51.0) % MCV 92.9 H (79.0-92.2) fl MCH 29.4 (25.7-32.2) pg MCHC 31.7 L (32.2-35.5) g/dl RDW Std Deviation 43.6 (35.1-43.9) fL Plt Count 257 (163-337) K/mm3 MPV 11.1 (9.4-12.3) fl Neutrophils % (Manual) 86 H (40-60) % Band Neutrophils % 0 (0-10) % Lymphocytes % (Manual) 8 L (20-40) % Atypical Lymphs % 0 % Monocytes % (Manual) 6 (2-10) % Eosinophils % (Manual) 0 L (0.8-7.0) % Basophils % (Manual) 0 L (0.2-1.2) Hypersegmented Neuts Toxic Granulation Platelet Estimate Adequate Plt Morphology Comment RBC Morph Comment Normal Puncture Site ABG pH (7.35-7.45) ABG pCO2 (35.0-45.0) mmHg ABG pO2 (80.0-100.0) mmHg ABG HCO3 (22.0-26.0) meq/L ABG O2 Saturation (96.0-97.0) % ABG Base Excess (-2-2.0) Julián Test A-a Gradient mmHg O2 Delivery Device Oxygen Flow Rate Sodium 141 (136-145) mEq/L Potassium 4.6 (3.5-5.1) mEq/L Chloride 102 (98-107) mEq/L Carbon Dioxide 27 (21-32) mEq/L Anion Gap 16.6 H (5-15) BUN 52 H (7-18) mg/dL Creatinine 2.0 H (0.7-1.3) mg/dL Est Cr Clr Drug Dosing 35.51 mL/min Estimated GFR (MDRD) 33 (>60) mL/min BUN/Creatinine Ratio 26.0 H (14-18) Glucose 125 H (83-115) mg/dL Lactic Acid (0.4-2.0) mmol/L Calcium 9.6 (8.5-10.1) mg/dL Magnesium 2.2 (1.8-2.4) mg/dl Total Bilirubin 0.4 (0.2-1.0) mg/dL AST 19 (15-37) U/L ALT 39 (16-63) U/L Alkaline Phosphatase 71 (46-116) U/L Troponin I < 0.017 (0.00-0.056) ng/mL NT-Pro-B Natriuret Pep (0-450) pg/mL Total Protein 7.9 (6.4-8.2) g/dl Albumin 4.0 (3.4-5.0) g/dl Globulin 3.9 gm/dL Albumin/Globulin Ratio 1.0 (1-2) Urine Color (Yellow) Urine Appearance (Clear) Urine pH (5.0-8.0) Ur Specific [place] (1.005-1.030) Urine Protein (Negative) Urine Glucose (UA) (Negative) Urine Ketones (Negative) Urine Occult Blood (Negative) Urine Nitrite (Negative) Urine Bilirubin (Negative) Urine Urobilinogen (0.2-1.0) Ur Leukocyte Esterase (Negative) Urine RBC (0-5) /hpf Urine WBC (0-5) /hpf Ur Epithelial Cells Ur Squamous Epith Cells (0-5) /hpf Amorphous Sediment (NOT SEEN) /hpf Urine Bacteria (FEW) /hpf Hyaline Casts (0-5) /lpf Urine Mucus (FEW) /hpf 07/06/18 07/06/18 07/06/18 Range/Units 21:15 23:12 23:13 WBC (4.23-9.07) K/mm3 RBC (4.63-6.08) M/mm3 Hgb (13.7-17.5) gm/L Hct (40.1-51.0) % MCV (79.0-92.2) fl MCH (25.7-32.2) pg MCHC (32.2-35.5) g/dl RDW Std Deviation (35.1-43.9) fL Plt Count (163-337) K/mm3 MPV (9.4-12.3) fl Neutrophils % (Manual) (40-60) % Band Neutrophils % (0-10) % Lymphocytes % (Manual) (20-40) % Atypical Lymphs % % Monocytes % (Manual) (2-10) % Eosinophils % (Manual) (0.8-7.0) % Basophils % (Manual) (0.2-1.2) Hypersegmented Neuts Toxic Granulation Platelet Estimate Plt Morphology Comment RBC Morph Comment Puncture Site Lt radial ABG pH 7.44 (7.35-7.45) ABG pCO2 33.8 L (35.0-45.0) mmHg ABG pO2 63.0 L (80.0-100.0) mmHg ABG HCO3 22.4 (22.0-26.0) meq/L ABG O2 Saturation 92.6 L (96.0-97.0) % ABG Base Excess -0.6 (-2-2.0) Julián Test Positive A-a Gradient 61 mmHg O2 Delivery Device Nasal cannula Oxygen Flow Rate 1.5 Sodium (136-145) mEq/L Potassium (3.5-5.1) mEq/L Chloride (98-107) mEq/L Carbon Dioxide (21-32) mEq/L Anion Gap (5-15) BUN (7-18) mg/dL Creatinine (0.7-1.3) mg/dL Est Cr Clr Drug Dosing mL/min Estimated GFR (MDRD) (>60) mL/min BUN/Creatinine Ratio (14-18) Glucose (83-115) mg/dL Lactic Acid (0.4-2.0) mmol/L Calcium (8.5-10.1) mg/dL Magnesium (1.8-2.4) mg/dl Total Bilirubin (0.2-1.0) mg/dL AST (15-37) U/L ALT (16-63) U/L Alkaline Phosphatase (46-116) U/L Troponin I (0.00-0.056) ng/mL NT-Pro-B Natriuret Pep 810 H (0-450) pg/mL Total Protein (6.4-8.2) g/dl Albumin (3.4-5.0) g/dl Globulin gm/dL Albumin/Globulin Ratio (1-2) Urine Color Yellow (Yellow) Urine Appearance Clear (Clear) Urine pH 5.5 (5.0-8.0) Ur Specific [place] 1.020 (1.005-1.030) Urine Protein 1+ H (Negative) Urine Glucose (UA) Negative (Negative) Urine Ketones Negative (Negative) Urine Occult Blood Negative (Negative) Urine Nitrite Negative (Negative) Urine Bilirubin Negative (Negative) Urine Urobilinogen 0.2 (0.2-1.0) Ur Leukocyte Esterase Negative (Negative) Urine RBC 0-5 (0-5) /hpf Urine WBC 0-5 (0-5) /hpf Ur Epithelial Cells Not Reportable Ur Squamous Epith Cells 0-5 (0-5) /hpf Amorphous Sediment Few H (NOT SEEN) /hpf Urine Bacteria Few (FEW) /hpf Hyaline Casts 0-5 (0-5) /lpf Urine Mucus Few (FEW) /hpf 07/07/18 07/07/18 07/07/18 Range/Units 04:00 04:15 04:15 WBC 33.46 H (4.23-9.07) K/mm3 RBC 4.27 L (4.63-6.08) M/mm3 Hgb 12.9 L (13.7-17.5) gm/L Hct 39.5 L (40.1-51.0) % MCV 92.5 H (79.0-92.2) fl MCH 30.2 (25.7-32.2) pg MCHC 32.7 (32.2-35.5) g/dl RDW Std Deviation 44.1 H (35.1-43.9) fL Plt Count 213 (163-337) K/mm3 MPV 10.9 (9.4-12.3) fl Neutrophils % (Manual) 81 H (40-60) % Band Neutrophils % 8 (0-10) % Lymphocytes % (Manual) 4 L (20-40) % Atypical Lymphs % 0 % Monocytes % (Manual) 6 (2-10) % Eosinophils % (Manual) 0 L (0.8-7.0) % Basophils % (Manual) 1 (0.2-1.2) Hypersegmented Neuts Few Toxic Granulation 1+ slight Platelet Estimate Adequate Plt Morphology Comment Normal RBC Morph Comment Normal Puncture Site ABG pH (7.35-7.45) ABG pCO2 (35.0-45.0) mmHg ABG pO2 (80.0-100.0) mmHg ABG HCO3 (22.0-26.0) meq/L ABG O2 Saturation (96.0-97.0) % ABG Base Excess (-2-2.0) Julián Test A-a Gradient mmHg O2 Delivery Device Oxygen Flow Rate Sodium 138 (136-145) mEq/L Potassium 4.6 (3.5-5.1) mEq/L Chloride 101 (98-107) mEq/L Carbon Dioxide 23 (21-32) mEq/L Anion Gap 18.6 H (5-15) BUN 54 H (7-18) mg/dL Creatinine 2.1 H (0.7-1.3) mg/dL Est Cr Clr Drug Dosing 33.82 mL/min Estimated GFR (MDRD) 31 (>60) mL/min BUN/Creatinine Ratio 25.7 H (14-18) Glucose 140 H (83-115) mg/dL Lactic Acid 2.5 H (0.4-2.0) mmol/L Calcium 8.8 (8.5-10.1) mg/dL Magnesium (1.8-2.4) mg/dl Total Bilirubin (0.2-1.0) mg/dL AST (15-37) U/L ALT (16-63) U/L Alkaline Phosphatase (46-116) U/L Troponin I (0.00-0.056) ng/mL NT-Pro-B Natriuret Pep (0-450) pg/mL Total Protein (6.4-8.2) g/dl Albumin (3.4-5.0) g/dl Globulin gm/dL Albumin/Globulin Ratio (1-2) Urine Color (Yellow) Urine Appearance (Clear) Urine pH (5.0-8.0) Ur Specific [place] (1.005-1.030) Urine Protein (Negative) Urine Glucose (UA) (Negative) Urine Ketones (Negative) Urine Occult Blood (Negative) Urine Nitrite (Negative) Urine Bilirubin (Negative) Urine Urobilinogen (0.2-1.0) Ur Leukocyte Esterase (Negative) Urine RBC (0-5) /hpf Urine WBC (0-5) /hpf Ur Epithelial Cells Ur Squamous Epith Cells (0-5) /hpf Amorphous Sediment (NOT SEEN) /hpf Urine Bacteria (FEW) /hpf Hyaline Casts (0-5) /lpf Urine Mucus (FEW) /hpf Result Diagrams: 07/07/18 04:15 07/07/18 16:10 Henri Results Last 24 hrs: Microbiology 07/06/18 21:30 Influenza Type A Antigen Screen - Final Nasal, Unspecified NEGATIVE INFLUENZA A VIRUS AG Influenza Type B Antigen Screen - Final NEGATIVE INFLUENZA B VIRUS AG - Problem List (1) Fever SNOMED Code(s): 942997592 ICD Code: R50.9 - FEVER, UNSPECIFIED Status: Acute Priority: High Current Visit: Yes Qualifiers: Fever type: unspecified Qualified Code(s): R50.9 - Fever, unspecified (2) Hypoxemia SNOMED Code(s): 077165783 ICD Code: R09.02 - HYPOXEMIA Status: Acute Priority: High Current Visit : Yes (3) Renal insufficiency SNOMED Code(s): 475944265, 675858300 ICD Code: N28.9 - DISORDER OF KIDNEY AND URETER, UNSPECIFIED Status: Acute Priority: High Current Visit: Yes (4) Pacemaker SNOMED Code(s): 789045304 ICD Code: Z95.0 - PRESENCE OF CARDIAC PACEMAKER Status: Chronic Priority : Medium Current Visit: No (5) GRABIEL on CPAP SNOMED Code(s): 78382012 ICD Code: G47.33 - OBSTRUCTIVE SLEEP APNEA (ADULT) (PEDIATRIC) Status: Chronic Priority: Medium Current Visit: No Onset Date: 09/01/15 (6) CHF exacerbation SNOMED Code(s): 14991268 ICD Code: I50.9 - HEART FAILURE, UNSPECIFIED Status: Acute Priority: High Current Visit: Yes Qualifiers: Heart failure type: unspecified Qualified Code(s): I50.9 - Heart failure, unspecified Problem List Initiated/Reviewed/Updated: Yes Orders Last 24hrs: Active Orders 24 hr Category Date Time Status Patient Status [ADT] Routine ADT 07/07/18 08:10 Active Cardiac Monitoring [RC] CONTINUOUS Care 07/07/18 07:08 Active Flutter Valve Therapy [RT Chest Physiotherapy] [RC] Care 07/07/18 07:58 Active ASDIRECTED Height and Weight [RC] 04 Care 07/07/18 07:08 Active Incentive Spirometry [RT Incentive Spirometry] [RC] Care 07/07/18 07:58 Active Q2HWA Intake and Output [RC] 04,16 Care 07/07/18 07:08 Active Oxygen Therapy [RC] PRN Care 07/07/18 07:08 Active Pulse Oximetry [RC] PRN Care 07/07/18 07:09 Active RT Aerosol Therapy [RC] ASDIRECTED Care 07/07/18 07:11 Active Up With Assistance [RC] QSHIFT Care 07/07/18 05:18 Active VTE/DVT Education [RC] DAILY Care 07/07/18 07:08 Active Vital Signs [RC] Q4HR Care 07/07/18 07:08 Active Consult to Case Management/[place] Deckhand [CONS] Cons 07/07/18 07:08 Active Routine Consult to Spiritual Care [CONS] Routine Cons 07/07/18 07:08 Active OT Evaluation and Treatment [CONS] Routine Cons 07/07/18 07:08 Active PT Evaluation and Treatment [CONS] Routine Cons 07/07/18 07:08 Active Respiratory Care Assess and Treatment [CONS] Routine Cons 07/07/18 07:08 Active TRAY PACKER Evaluation and Treatment [CONS] Routine Cons 07/07/18 07:08 Active 2 Gram Sodium Diet [DIET] Diet 07/07/18 Breakfast Active Chest wo Cont [CT] Routine Exams 07/07/18 07:15 Ordered BASIC METABOLIC PANEL,BMP [CHEM] AM Lab 07/08/18 05:11 Ordered BASIC METABOLIC PANEL,BMP [CHEM] AM Lab 07/09/18 05:11 Ordered BASIC METABOLIC PANEL,BMP [CHEM] AM Lab 07/10/18 05:11 Ordered BASIC METABOLIC PANEL,BMP [CHEM] AM Lab 07/11/18 05:11 Ordered BASIC METABOLIC PANEL,BMP [CHEM] AM Lab 07/12/18 05:11 Ordered C-REACTIVE PROTEIN [CHEM] AM Lab 07/08/18 05:11 Ordered C-REACTIVE PROTEIN [CHEM] AM Lab 07/09/18 05:11 Ordered C-REACTIVE PROTEIN [CHEM] AM Lab 07/10/18 05:11 Ordered C-REACTIVE PROTEIN [CHEM] AM Lab 07/11/18 05:11 Ordered C-REACTIVE PROTEIN [CHEM] AM Lab 07/12/18 05:11 Ordered CBC WITH AUTO DIFF [HEME] AM Lab 07/08/18 05:11 Ordered CBC WITH AUTO DIFF [HEME] AM Lab 07/09/18 05:11 Ordered CBC WITH AUTO DIFF [HEME] AM Lab 07/10/18 05:11 Ordered CBC WITH AUTO DIFF [HEME] AM Lab 07/11/18 05:11 Ordered CBC WITH AUTO DIFF [HEME] AM Lab 07/12/18 05:11 Ordered CRP [C-REACTIVE PROTEIN] [CHEM] Urgent Lab 07/07/18 07:52 Ordered CULTURE BLOOD [BC] Stat Lab 07/06/18 22:31 Received CULTURE BLOOD [BC] Stat Lab 07/06/18 22:31 Received CULTURE SPUTUM + SMEAR [RM] Stat Lab 07/07/18 07:08 Ordered LACTATE SEPSIS W/ REFLEX [CHEM] Routine Lab 07/07/18 10:00 Ordered MAGNESIUM [CHEM] AM Lab 07/08/18 05:11 Ordered MAGNESIUM [CHEM] AM Lab 07/09/18 05:11 Ordered MAGNESIUM [CHEM] AM Lab 07/10/18 05:11 Ordered MAGNESIUM [CHEM] AM Lab 07/11/18 05:11 Ordered MAGNESIUM [CHEM] AM Lab 07/12/18 05:11 Ordered MYCOPLASMA PNEUMONIAE IGM AB [CHEM] Stat Lab 07/07/18 07:52 Ordered PRO B-TYPE NATRIUR PEPT,BNPPRO [CHEM] AM Lab 07/08/18 05:11 Ordered PRO B-TYPE NATRIUR PEPT,BNPPRO [CHEM] AM Lab 07/09/18 05:11 Ordered PRO B-TYPE NATRIUR PEPT,BNPPRO [CHEM] Urgent Lab 07/07/18 07:57 Ordered PROCALCITONIN [REF] Routine Lab 07/07/18 10:00 Ordered RESPIRATORY PANEL Stat Lab 07/07/18 07:53 Ordered STREP PNEUMONIAE ANTIGEN [MREF] Stat Lab 07/07/18 07:52 Ordered Acetaminophen [Tylenol] Med 07/07/18 04:29 Active 650 mg PO Q4H PRN Acetaminophen/HYDROcodone [[place] 325-5 MG] Med 07/07/18 07:08 Active 1 tab PO Q4H PRN Albuterol/Ipratropium [DuoNeb 3.0-0.5 MG/3 ML] Med 07/07/18 07:08 Active 3 ml NEB Q4H PRN Bisacodyl [Dulcolax] Med 07/07/18 07:08 Active 5 mg PO DAILY PRN Cefepime [Maxipime in D5W 2 GM/50 ML] 2 gm Med 07/07/18 09:00 Active Premix Bag 1 bag IV Q12H Dextromethorphan/guaiFENesin [Robitussin DM] Med 07/07/18 14:00 Active 10 ml PO TID@0700,1400,2100 Docusate Sodium/Sennosides [Senna Plus] Med 07/07/18 07:08 Active 1 tab PO BID PRN HYDROmorphone [Dilaudid] Med 07/07/18 07:08 Active 0.25 mg IVPUSH Q2H PRN LORazepam [Ativan] Med 07/07/18 07:08 Active 0.5 mg IV Q6H PRN Metoprolol Tartrate [Lopressor] Med 07/07/18 07:03 Active 5 mg IVPUSH Q4H PRN Ondansetron [Zofran] Med 07/07/18 07:08 Active 4 mg IV Q6H PRN Pharmacy to Dose - Magnesium R [Pharmacy to Dose - Med 07/07/18 07:15 Active Magnesium Replacement] 1 dose .XX ASDIRECTED Pharmacy to Dose - Potassium R [Pharmacy to Dose - Med 07/07/18 07:15 Active Potassium Replacement] 1 dose .XX ASDIRECTED Pharmacy to Dose - Vancomycin Med 07/07/18 08:45 Ordered 1 dose .XX ASDIRECTED Piperacillin/Tazobactam [Piperacil-Tazobact] 4.5 gm Med 07/07/18 08:30 Active Sodium Chloride 0.9% [Normal Saline] 100 ml IV ONETIME Piperacillin/Tazobactam [Piperacil-Tazobact] 4.5 gm Med 07/07/18 16:00 Active Sodium Chloride 0.9% [Normal Saline] 100 ml IV Q8H Polyethylene Glycol 3350 [MiraLAX] Med 07/07/18 07:08 Active 17 gm PO DAILY PRN Saccharomyces Boulardii [Florastor] Med 07/07/18 09:00 Active 250 mg PO BID Sodium Chloride 0.9% [Normal Saline] 1,000 ml Med 07/07/18 06:00 Active IV ASDIRECTED hydrALAZINE [Apresoline] Med 07/07/18 07:03 Active 20 mg IVPUSH Q4H PRN Blood Culture x2 Reflex Set [OM.PC] Stat Oth 07/06/18 22:29 Ordered Resuscitation Status Routine Resus Stat 07/07/18 03:41 Ordered Medication Orders Acetaminophen (Tylenol) 650 mg PO Q4H PRN PRN Reason: Fever Last Admin: 07/07/18 04:41 Dose: 650 mg Hydrocodone Bitart/Acetaminophen ([place] 325-5 Mg) 1 tab PO Q4H PRN PRN Reason: Pain (moderate 4-6) Albuterol/Ipratropium (Duoneb 3.0-0.5 Mg/3 Ml) 3 ml NEB Q4H PRN PRN Reason: Shortness Of Breath/wheezing Bisacodyl (Dulcolax) 5 mg PO DAILY PRN PRN Reason: Constipation Guaifenesin/Phenylephrine HCl (Robitussin Dm) 10 ml PO TID@0700,1400,2100 [facility] Hydralazine HCl (Apresoline) 20 mg IVPUSH Q4H PRN PRN Reason: Hypertension Hydromorphone HCl (Dilaudid) 0.25 mg IVPUSH Q2H PRN PRN Reason: Pain (severe 7-10) Sodium Chloride (Normal Saline) 1,000 mls @ 30 mls/hr IV ASDIRECTED [facility] Last Infusion: 07/07/18 07:00 Dose: 30 mls/hr Admin: 07/07/18 06:00 Dose: 250 mls/hr Piperacillin Sod/Tazobactam (Sod 4.5 gm/ Sodium Chloride) 100 mls @ 200 mls/hr IV ONETIME ONE Stop: 02/20/19 08:59 Cefepime HCl 2 gm/ Premix 50 mls @ 100 mls/hr IV Q12H [facility] Piperacillin Sod/Tazobactam (Sod 4.5 gm/ Sodium Chloride) 100 mls @ 25 mls/hr IV Q8H [facility] Lorazepam (Ativan) 0.5 mg IV Q6H PRN PRN Reason: Anxiety Magnesium Sulfate (Pharmacy To Dose - Magnesium Replacement) 1 dose .XX ASDIRECTED [facility] Metoprolol Tartrate (Lopressor) 5 mg IVPUSH Q4H PRN PRN Reason: Tachycardia Ondansetron HCl (Zofran) 4 mg IV Q6H PRN PRN Reason: Nausea/Vomiting Polyethylene Glycol (Miralax) 17 gm PO DAILY PRN PRN Reason: Constipation Potassium Chloride (Pharmacy To Dose - Potassium Replacement) 1 dose .XX ASDIRECTED [facility] Saccharomyces Boulardii (Florastor) 250 mg PO BID [facility] Senna/Docusate Sodium (Senna Plus) 1 tab PO BID PRN PRN Reason: Constipation Vancomycin HCl (Pharmacy To Dose - Vancomycin) 1 dose .XX ASDIRECTED [facility] Assessment/Plan Comment:: I/P: Acute: Fever of unknown origin -Presented to ED with chills and SOB -104.2 degree fever in ED, Oxygen saturations aroun 87% -Chronic cough, no sputum production -WBC 22.23-->33.46 -CRP 11.4 -Refused blood cultures and Lactic acid in ED - eventually obtained on floor after abx were given -Lactic acid 2.5-->2.0 -Meets sepsis criteria -CXR in ED shows chronic elevated left hemidiaphragm causing mild left basilar atelectasis, chronic congested pulmonary vessels, enlarged heart, pacemaker -CT on 07/06/[address] Nails: * 1. 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 * 2. Elevated left hemidiaphragm which is chronic with adjacent Pregnyl density most likely due to chronic atelectasis. * 3. Other incidental findings. -UA negative -Blood cultures pending although obtained after abx given -Started on azithromycin and rocephin in ED -> symptoms and labs worsened -> discontinue -Mycoplasma negative -Strep pneumo pending -Influenza negative -VRP pending -Procalcitonin pending -Sputum culture pending -No signs of skin infection -On eliquis BID -IV fluids as ordered -Vancomycin started -Cefepime started -Zosyn started Hypoxia -Not usually on home O2 -Requiring 3L here -O2 as needed, attempt to wean -Unknown reason -CXR/CT as above -RT/IS/Acapella -ABG in ED -pH 7.44 -pCO2 33.8 -pO2 63.0 -HCO3 22.4 -O2 Saturation 92.6 -Base excess -0.6 -A-a gradient 61 -Obtained while on nasal cannula at 1.5L Renal failure -Acute on chronic -Baseline GFR appears to be in 50's -BUN 52-->54 -Creatinine 2.0-->2.1 -eGFR 33-->31 -250ml fluid bolus given -IV fluids as ordered -Caution with worsening CHF -Home medications as ordered CHF -SOB, Trace pedal edema, Chronic pulmonary vascular congestion on CXR -BNP 810-->3128 -IV fluids given due to sepsis criteria, fever -Echo ordered Resolved: AMS -Was lethargic and confused in ED -Improved on floor -TR[employer] P[employer]ER evaluation ordered Chronic: Paroxysmal A. 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 Jewels Tadeo
[2018-07-07] MEDS: Saccharomyces Boulardii (Probiotic) 250 MG Cap PO SCH ×2 (09:10→21:39)
--- NOTE | 2018-07-07 10:14 | CT ---
CT chest Technique: Multiple axial sections were obtained from above the lung apices inferiorly through the lung bases. Intravenous contrast not utilized. Findings: Mild areas of calcified pleural thickening are seen posteriorly within both mid to lower lungs as well as along the diaphragmatic pleura. Small portion of the visualized upper abdominal structures are within normal limits. Heart is slightly enlarged. Previous sternotomy is noted. Mild artifact is noted from pacemaker. Atherosclerotic calcification is noted within the thoracic aorta without aneurysm. No mediastinal adenopathy is seen. Focal parenchymal density is seen above the left hemidiaphragm which is elevated which most likely represents chronic atelectasis. Lungs otherwise are clear. Bone window settings were reviewed which show scattered degenerative endplate spurring within the spine. No acute osseous abnormality is seen. Impression: 1. 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 2. Elevated left hemidiaphragm which is chronic with adjacent parenchymal density most likely due to chronic atelectasis. 3. Other incidental findings. Diagnostic code #2
[2018-07-07] MEDS: Cefepime 2 GM in Premix Bag 1 BAG IV SCH ×2 (10:19→21:40)
[2018-07-07] MEDS: Vancomycin 2 GM in Sodium Chloride 0.9% 500 ML IV SCH (12:01)
[2018-07-07] MEDS: guaiFENesin/Dextromethorphan 100-10 MG/5 ML Soln 5 ML Cup PO SCH ×2 (14:14→21:42)
[2018-07-07] MEDS: Albuterol/Ipratropium 3.0-0.5 MG/3 ML Neb Soln NEB SCH ×2 (16:05→21:58)
[2018-07-07] MEDS: Piperacillin/Tazobactam 4.5 GM in Sodium Chloride 0.9% 100 ML IV SCH (16:49)
[2018-07-07] MEDS: guanFACINE 1 MG Tab PO SCH (21:36)
[2018-07-07] MEDS: Vitamin B Complex With Vitamin C Cap PO SCH (21:37)
[2018-07-07] MEDS: Montelukast 10 MG Tab PO SCH (21:37)
[2018-07-07] MEDS: guaiFENesin 600 MG Tab.ER PO SCH (21:37)
[2018-07-07] MEDS: Metoprolol Succinate 50 MG Tab.ER PO SCH (21:38)
[2018-07-07] MEDS: Apixaban 5 MG Tab PO SCH (21:39)
[2018-07-08] MEDS: Piperacillin/Tazobactam 4.5 GM in Sodium Chloride 0.9% 100 ML IV SCH ×4 (00:17→20:22)
[2018-07-08] MEDS: Acetaminophen 325 MG Tab PO PRN ×2 (00:40→14:05)
[2018-07-08] MEDS: Albuterol/Ipratropium 3.0-0.5 MG/3 ML Neb Soln NEB SCH ×4 (06:01→20:36)
[2018-07-08] MEDS: guaiFENesin/Dextromethorphan 100-10 MG/5 ML Soln 5 ML Cup PO SCH ×2 (06:06→14:07)
[2018-07-08] MEDS ORDERED: Furosemide 40 MG Tab PO SCH (09:00)
[2018-07-08] MEDS: Formoterol/Mometasone 100-5 MCG 8.8 GM Inhaler IH SCH ×2 (09:18→20:34)
[2018-07-08] MEDS: Cefepime 2 GM in Premix Bag 1 BAG IV SCH ×3 (10:31→22:10)
[2018-07-08] MEDS: Saccharomyces Boulardii (Probiotic) 250 MG Cap PO SCH ×2 (10:34→20:26)
[2018-07-08] MEDS: guaiFENesin 600 MG Tab.ER PO SCH ×2 (10:35→20:27)
[2018-07-08] MEDS: amLODIPine 5 MG Tab PO SCH (10:35)
[2018-07-08] MEDS: Aspirin 81 MG Tab.Chew PO SCH (10:36)
[2018-07-08] MEDS: Citalopram 20 MG Tab PO SCH (10:36)
[2018-07-08] MEDS: Metoprolol Succinate 50 MG Tab.ER PO SCH ×2 (10:36→20:25)
[2018-07-08] MEDS: Multivitamins,Therapeutic Tab PO SCH (10:36)
[2018-07-08] MEDS: Apixaban 5 MG Tab PO SCH ×2 (10:36→20:28)
[2018-07-08] MEDS: Vitamin B Complex With Vitamin C Cap PO SCH ×2 (10:38→20:27)
[2018-07-08] MEDS: Vancomycin 2 GM in Sodium Chloride 0.9% 500 ML IV SCH (11:15)
[2018-07-08] MEDS: Furosemide 20 MG/2 ML VIAL IVPUSH SCH (11:26)
--- NOTE | 2018-07-08 14:59 | PCM.PN ---
- General Info Date of Service: 07/08/18 Admission Dx/Problem (Free Text): Admission Diagnosis/Problem Admission Diagnosis/Problem Fever Subjective Update: In to see Ed. He is just coming out of the restroom. He is off of oxygen and reports he feels very good. He has been refusing his cough medicine so will discontinue that. His labs are improving. Still unsure what caused his symptoms as everything is coming back negative although it is likely bronchitis given his respiratory symptoms. No patient or nursing concerns. Functional Status: Reports: Pain Controlled, Tolerating Diet, Ambulating, Urinating, Incentive Spirometry, Other (Acapella ). Denies: New Symptoms - Review of Systems General: Reports: Weakness (improving). Denies: Fever, Fatigue, Malaise, Chills HEENT: Reports: No Symptoms. Denies: Headaches, Sore Throat, Rhinitis Pulmonary: Reports: Shortness of Breath (chronic and at baseline ), Cough ( chronic ), Sputum, Wheezing (chronic ) Cardiovascular: Reports: Dyspnea on Exertion (chronic ). Denies: Chest Pain, Palpitations, Edema, Lightheadedness Gastrointestinal: Reports: No Symptoms, Other (looser stools but not diarrhea). Denies: Abdominal Pain, Constipation, Decreased Appetite, Diarrhea, Nausea, Vomiting Genitourinary: Reports: No Symptoms. Denies: Pain Musculoskeletal: Reports: No Symptoms Skin: Reports: No Symptoms Neurological: Reports: No Symptoms. Denies: Confusion, Trouble Speaking, Difficulty Walking, Change in Speech, Gait Disturbance Psychiatric: Reports: No Symptoms - Patient Data Vitals - Most Recent: Last Vital Signs Temp 100.1 F 07/08/18 14:05 Pulse 84 07/08/18 11:30 Resp 18 07/08/18 11:30 BP 141/74 H 07/08/18 11:30 Pulse Ox 93 L 07/08/18 11:30 Weight - Most Recent: 293 lb 9.6 oz I&O - Last 24 Hours: Intake & Output 07/07/18 07/08/18 07/08/18 22:59 06:59 14:59 Intake Total 3217 1050 220 Output Total 1100 2050 Balance 2117 -1000 220 Lab Results Last 24 Hours: Laboratory Results - last 24 hr 07/07/18 07/07/18 07/07/18 Range/Units 08:00 10:07 16:10 WBC (4.23-9.07) K/mm3 RBC (4.63-6.08) M/mm3 Hgb (13.7-17.5) gm/L Hct (40.1-51.0) % MCV (79.0-92.2) fl MCH (25.7-32.2) pg MCHC (32.2-35.5) g/dl RDW Std Deviation (35.1-43.9) fL Plt Count (163-337) K/mm3 MPV (9.4-12.3) fl Neut % (Auto) (34.0-67.9) % Lymph % (Auto) (21.8-53.1) % Lane % (Auto) (5.3-12.2) % Eos % (Auto) (0.8-7.0) Baso % (Auto) (0.1-1.2) % Neut # (Auto) (1.78-5.38) K/mm3 Lymph # (Auto) (1.32-3.57) K/mm3 Lane # (Auto) (0.30-0.82) K/mm3 Eos # (Auto) (0.04-0.54) K/mm3 Baso # (Auto) (0.01-0.08) K/mm3 Manual Slide Review Sodium 136 (136-145) mEq/L Potassium 4.3 (3.5-5.1) mEq/L Chloride 100 (98-107) mEq/L Carbon Dioxide 25 (21-32) mEq/L Anion Gap 15.3 H (5-15) BUN 54 H (7-18) mg/dL Creatinine 2.0 H (0.7-1.3) mg/dL Est Cr Clr Drug Dosing 35.51 mL/min Estimated GFR (MDRD) 33 (>60) mL/min BUN/Creatinine Ratio 27.0 H (14-18) Glucose 125 H (83-115) mg/dL Lactic Acid (0.4-2.0) mmol/L Calcium 8.5 (8.5-10.1) mg/dL Magnesium (1.8-2.4) mg/dl C-Reactive Protein (<1.0) mg/dL NT-Pro-B Natriuret Pep (0-450) pg/mL Procalcitonin 2.06 H (<0.10) ng/mL Adenovirus (PCR) Not detected (Not Detected) B. pertussis DNA (PCR) Not detected (Not Detected) B.parapertussis DNA PCR Not detected (Not Detected) C. pneumoniae DNA (PCR) Not detected (Not Detected) Coronavirus (PCR) Not detected (Not Detected) Human Metapneumovir PCR Not detected (Not Detected) Influenza A (RT-PCR) Not detected (Not Detected) Influenza B (RT-PCR) Not detected (Not Detected) M. pneumoniae (PCR) Not detected (Not Detected) Parainfluen 1,2,3,4 PCR Not detected (Not Detected) RSV (PCR) Not detected (Not Detected) Entero/Rhino (PCR) Not detected (Not Detected) 07/07/18 07/08/18 07/08/18 Range/Units 16:10 06:24 06:24 WBC 13.29 H (4.23-9.07) K/mm3 RBC 4.08 L (4.63-6.08) M/mm3 Hgb 12.2 L (13.7-17.5) gm/L Hct 38.1 L (40.1-51.0) % MCV 93.4 H (79.0-92.2) fl MCH 29.9 (25.7-32.2) pg MCHC 32.0 L (32.2-35.5) g/dl RDW Std Deviation 45.5 H (35.1-43.9) fL Plt Count 185 (163-337) K/mm3 MPV 11.2 (9.4-12.3) fl Neut % (Auto) 78.4 H (34.0-67.9) % Lymph % (Auto) 9.3 L (21.8-53.1) % Lane % (Auto) 10.4 (5.3-12.2) % Eos % (Auto) 1.5 (0.8-7.0) Baso % (Auto) 0.2 (0.1-1.2) % Neut # (Auto) 10.43 H (1.78-5.38) K/mm3 Lymph # (Auto) 1.24 L (1.32-3.57) K/mm3 Lane # (Auto) 1.38 H (0.30-0.82) K/mm3 Eos # (Auto) 0.20 (0.04-0.54) K/mm3 Baso # (Auto) 0.02 (0.01-0.08) K/mm3 Manual Slide Review Abnormal smear Sodium 137 (136-145) mEq/L Potassium 4.3 (3.5-5.1) mEq/L Chloride 102 (98-107) mEq/L Carbon Dioxide 25 (21-32) mEq/L Anion Gap 14.3 (5-15) BUN 43 H (7-18) mg/dL Creatinine 1.7 H (0.7-1.3) mg/dL Est Cr Clr Drug Dosing 41.78 mL/min Estimated GFR (MDRD) 39 (>60) mL/min BUN/Creatinine Ratio 25.3 H (14-18) Glucose 126 H (83-115) mg/dL Lactic Acid 1.5 (0.4-2.0) mmol/L Calcium 8.4 L (8.5-10.1) mg/dL Magnesium 2.3 (1.8-2.4) mg/dl C-Reactive Protein 16.2 H* (<1.0) mg/dL NT-Pro-B Natriuret Pep (0-450) pg/mL Procalcitonin (<0.10) ng/mL Adenovirus (PCR) (Not Detected) B. pertussis DNA (PCR) (Not Detected) B.parapertussis DNA PCR (Not Detected) C. pneumoniae DNA (PCR) (Not Detected) Coronavirus (PCR) (Not Detected) Human Metapneumovir PCR (Not Detected) Influenza A (RT-PCR) (Not Detected) Influenza B (RT-PCR) (Not Detected) M. pneumoniae (PCR) (Not Detected) Parainfluen 1,2,3,4 PCR (Not Detected) RSV (PCR) (Not Detected) Entero/Rhino (PCR) (Not Detected) 07/08/18 Range/Units 06:24 WBC (4.23-9.07) K/mm3 RBC (4.63-6.08) M/mm3 Hgb (13.7-17.5) gm/L Hct (40.1-51.0) % MCV (79.0-92.2) fl MCH (25.7-32.2) pg MCHC (32.2-35.5) g/dl RDW Std Deviation (35.1-43.9) fL Plt Count (163-337) K/mm3 MPV (9.4-12.3) fl Neut % (Auto) (34.0-67.9) % Lymph % (Auto) (21.8-53.1) % Lane % (Auto) (5.3-12.2) % Eos % (Auto) (0.8-7.0) Baso % (Auto) (0.1-1.2) % Neut # (Auto) (1.78-5.38) K/mm3 Lymph # (Auto) (1.32-3.57) K/mm3 Lane # (Auto) (0.30-0.82) K/mm3 Eos # (Auto) (0.04-0.54) K/mm3 Baso # (Auto) (0.01-0.08) K/mm3 Manual Slide Review Sodium (136-145) mEq/L Potassium (3.5-5.1) mEq/L Chloride (98-107) mEq/L Carbon Dioxide (21-32) mEq/L Anion Gap (5-15) BUN (7-18) mg/dL Creatinine (0.7-1.3) mg/dL Est Cr Clr Drug Dosing mL/min Estimated GFR (MDRD) (>60) mL/min BUN/Creatinine Ratio (14-18) Glucose (83-115) mg/dL Lactic Acid (0.4-2.0) mmol/L Calcium (8.5-10.1) mg/dL Magnesium (1.8-2.4) mg/dl C-Reactive Protein (<1.0) mg/dL NT-Pro-B Natriuret Pep 2100 H (0-450) pg/mL Procalcitonin (<0.10) ng/mL Adenovirus (PCR) (Not Detected) B. pertussis DNA (PCR) (Not Detected) B.parapertussis DNA PCR (Not Detected) C. pneumoniae DNA (PCR) (Not Detected) Coronavirus (PCR) (Not Detected) Human Metapneumovir PCR (Not Detected) Influenza A (RT-PCR) (Not Detected) Influenza B (RT-PCR) (Not Detected) M. pneumoniae (PCR) (Not Detected) Parainfluen 1,2,3,4 PCR (Not Detected) RSV (PCR) (Not Detected) Entero/Rhino (PCR) (Not Detected) Henri Results Last 24 Hours: Microbiology 07/07/18 09:14 Gram Stain - Final Sputum - Expectorated Sputum Culture - Preliminary 07/07/18 04:15 Aerobic Blood Culture - Preliminary Blood - Venous - Lab Draw NO GROWTH AFTER 1 DAY Anaerobic Blood Culture - Preliminary NO GROWTH AFTER 1 DAY 07/07/18 04:00 Aerobic Blood Culture - Preliminary Blood - Venous NO GROWTH AFTER 1 DAY Anaerobic Blood Culture - Preliminary NO GROWTH AFTER 1 DAY 07/07/18 08:05 Streptococcus pneumoniae Antigen (M - Final Urine Med Orders - Current: Current Medications Acetaminophen (Tylenol) 650 mg PO Q4H PRN PRN Reason: Fever Last Admin: 07/08/18 14:05 Dose: 650 mg Hydrocodone Bitart/Acetaminophen ([place]ach[place] 325-5 Mg) 1 tab PO Q4H PRN PRN Reason: Pain (moderate 4-6) Albuterol/Ipratropium (Duoneb 3.0-0.5 Mg/3 Ml) 3 ml NEB QIDRT COUNTS INCLUDE 234 BEDS AT THE [facility] Last Admin: 07/08/18 09:18 Dose: 3 ml Amlodipine Besylate (Norvasc) 5 mg PO DAILY COUNTS INCLUDE 234 BEDS AT THE [facility] Last Admin: 07/08/18 10:35 Dose: 5 mg Apixaban (Eliquis) 5 mg PO BID COUNTS INCLUDE 234 BEDS AT THE [facility] Last Admin: 07/08/18 10:36 Dose: 5 mg Aspirin (Aspirin) 81 mg PO DAILY COUNTS INCLUDE 234 BEDS AT THE [facility] Last Admin: 07/08/18 10:36 Dose: 81 mg Bisacodyl (Dulcolax) 5 mg PO DAILY PRN PRN Reason: Constipation Citalopram Hydrobromide (Celexa) 20 mg PO DAILY COUNTS INCLUDE 234 BEDS AT THE [facility] Last Admin: 07/08/18 10:36 Dose: 20 mg Furosemide (Lasix) 20 mg IVPUSH DAILY COUNTS INCLUDE 234 BEDS AT THE [facility] Last Admin: 07/08/18 11:26 Dose: 20 mg Guaifenesin (Mucinex) 1,200 mg PO BID COUNTS INCLUDE 234 BEDS AT THE [facility] Last Admin: 07/08/18 10:35 Dose: 1,200 mg Guaifenesin/Phenylephrine HCl (Robitussin Dm) 10 ml PO TID@0700,1400,2100 COUNTS INCLUDE 234 BEDS AT THE [facility] Last Admin: 07/08/18 14:07 Dose: Not Given Guanfacine HCl (Guanfacine) 1 mg PO BEDTIME COUNTS INCLUDE 234 BEDS AT THE [facility] Last Admin: 07/07/18 21:36 Dose: 1 mg Hydralazine HCl (Apresoline) 20 mg IVPUSH Q4H PRN PRN Reason: Hypertension Hydromorphone HCl (Dilaudid) 0.25 mg IVPUSH Q2H PRN PRN Reason: Pain (severe 7-10) Vancomycin HCl 2 gm/ Sodium (Chloride) 500 mls @ 250 mls/hr IV Q24H COUNTS INCLUDE 234 BEDS AT THE [facility] Last Admin: 07/08/18 11:15 Dose: 250 mls/hr Cefepime HCl 2 gm/ Premix 50 mls @ 100 mls/hr IV Q12H COUNTS INCLUDE 234 BEDS AT THE [facility] Last Admin: 07/08/18 12:47 Dose: Not Given Piperacillin Sod/Tazobactam (Sod 4.5 gm/ Sodium Chloride) 100 mls @ 25 mls/hr IV Q8H COUNTS INCLUDE 234 BEDS AT THE [facility] Last Admin: 07/08/18 11:44 Dose: 25 mls/hr Lorazepam (Ativan) 0.5 mg IV Q6H PRN PRN Reason: Anxiety Magnesium Sulfate (Pharmacy To Dose - Magnesium Replacement) 1 dose .XX ASDIRECTED COUNTS INCLUDE 234 BEDS AT THE [facility] Metoprolol Succinate (Toprol Xl) 100 mg PO BID COUNTS INCLUDE 234 BEDS AT THE [facility] Last Admin: 07/08/18 10:36 Dose: 100 mg Metoprolol Tartrate (Lopressor) 5 mg IVPUSH Q4H PRN PRN Reason: Tachycardia Mometasone Furoate/Formoterol Fumar (Dulera 100-5 Mcg) 1 puff IH BID COUNTS INCLUDE 234 BEDS AT THE [facility] Last Admin: 07/08/18 09:18 Dose: 1 puff Montelukast Sodium (Singulair) 10 mg PO BEDTIME COUNTS INCLUDE 234 BEDS AT [facility] Last Admin: 07/07/18 21:37 Dose: 10 mg Multivitamins (Thera) 1 each PO DAILY COUNTS INCLUDE 234 BEDS AT [facility] Last Admin: 07/08/18 10:36 Dose: 1 each Ondansetron HCl (Zofran) 4 mg IV Q6H PRN PRN Reason: Nausea/Vomiting Polyethylene Glycol (Miralax) 17 gm PO DAILY PRN PRN Reason: Constipation Potassium Chloride (Pharmacy To Dose - Potassium Replacement) 1 dose .XX ASDIRECTED COUNTS INCLUDE 234 BEDS AT THE [facility] Saccharomyces Boulardii (Florastor) 250 mg PO BID COUNTS INCLUDE 234 BEDS AT THE [facility] Last Admin: 07/08/18 10:34 Dose: 250 mg Senna/Docusate Sodium (Senna Plus) 1 tab PO BID PRN PRN Reason: Constipation Vancomycin HCl (Pharmacy To Dose - Vancomycin) 1 dose .XX ASDIRECTED COUNTS INCLUDE 234 BEDS AT THE [facility] Vitamin B Complex/Vitamin C (Super B With Vitamin C) 1 cap PO BID COUNTS INCLUDE 234 BEDS AT THE [facility] Last Admin: 07/08/18 10:38 Dose: 1 cap Discontinued Medications Albuterol/Ipratropium (Duoneb 3.0-0.5 Mg/3 Ml) 3 ml NEB Q4H PRN PRN Reason: Shortness Of Breath/wheezing Furosemide (Lasix) 40 mg IVPUSH NOW ONE Stop: 07/06/18 22:13 Last Admin: 07/06/18 22:44 Dose: 40 mg Furosemide (Lasix) 80 mg PO DAILY COUNTS INCLUDE 234 BEDS AT THE [facility] Azithromycin 500 mg/ Sodium (Chloride) 250 mls @ 250 mls/hr IV ONETIME ONE Stop: 07/07/18 01:27 Last Admin: 07/07/18 01:33 Dose: 250 mls/hr Ceftriaxone Sodium 2 gm/ (Sodium Chloride) 100 mls @ 200 mls/hr IV Q24H COUNTS INCLUDE 234 BEDS AT THE [facility] Last Admin: 07/07/18 00:47 Dose: 200 mls/hr Sodium Chloride (Normal Saline) 1,000 mls @ 30 mls/hr IV ASDIRECTED COUNTS INCLUDE 234 BEDS AT THE [facility] Last Infusion: 07/07/18 07:00 Dose: 30 mls/hr Piperacillin Sod/Tazobactam (Sod 4.5 gm/ Sodium Chloride) 100 mls @ 200 mls/hr IV ONETIME ONE Stop: 07/07/18 08:59 Last Admin: 07/07/18 09:09 Dose: 200 mls/hr Cefepime HCl 2 gm/ Premix 50 mls @ 100 mls/hr IV Q12H COUNTS INCLUDE 234 BEDS AT THE [facility] Last Admin: 07/08/18 10:31 Dose: 100 mls/hr Piperacillin Sod/Tazobactam (Sod 4.5 gm/ Sodium Chloride) 100 mls @ 25 mls/hr IV Q8H COUNTS INCLUDE 234 BEDS AT THE [facility] Last Admin: 07/08/18 12:48 Dose: Not Given Sodium Chloride (Normal Saline) 1,000 mls @ 125 mls/hr IV ASDIRECTED COUNTS INCLUDE 234 BEDS AT THE [facility] Sodium Chloride (Normal Saline) 1,000 mls @ 100 mls/hr IV ASDIRECTED COUNTS INCLUDE 234 BEDS AT THE [facility] Ondansetron HCl (Zofran) 4 mg IVPUSH ONETIME ONE Stop: 07/06/18 23:40 Last Admin: 07/06/18 23:43 Dose: 4 mg Vancomycin HCl (Vancomycin) 1,973.805 mg 15 mg/kg (1973.805 mg) IV Q12H COUNTS INCLUDE 234 BEDS AT THE [facility] Last Admin: 07/07/18 08:57 Dose: Not Given - Exam Quality Assessment: DVT Prophylaxis. No: Supplemental Oxygen General: Alert, Oriented, Cooperative, No Acute Distress HEENT: Pupils Equal, Pupils Reactive, EOMI, Mucous Membr. Moist/[place] Neck: Supple, Trachea Midline Lungs: Normal Respiratory Effort, Decreased Breath Sounds, Wheezing (improving ) Cardiovascular: Regular Rate, Regular Rhythm GI/Abdominal Exam: Normal Bowel Sounds, Soft, Non-Tender, No Distention, No Abnormal Bruit (Male) Exam: Deferred Back Exam: Normal Inspection, Full Range of Motion Extremities: Normal Inspection, Normal Range of Motion, Non-Tender, Normal Capillary Refill, Pedal Edema (trace) Peripheral Pulses: 2+: Radial (L), Radial (R), Dorsalis Pedis (L), Dorsalis Pedis (R) Skin: Warm, Dry, Intact Neurological: No New Focal Deficit Psy/Mental Status: Alert, Normal Affect, Normal Mood - Problem List & Annotations (1) Fever SNOMED Code(s): 602894707 Code(s): R50.9 - FEVER, UNSPECIFIED Status: Acute Priority: High Current Visit: Yes Qualifiers: Fever type: unspecified Qualified Code(s): R50.9 - Fever, unspecified (2) Hypoxemia SNOMED Code(s): 600704106 Code(s): R09.02 - HYPOXEMIA Status: Resolved Priority: High Current Visit: Yes (3) Renal insufficiency SNOMED Code(s): 247735445, 970166050 Code(s): N28.9 - DISORDER OF KIDNEY AND URETER, UNSPECIFIED Status: Acute Priority: High Current Visit: Yes (4) Pacemaker SNOMED Code(s): 997935237 Code(s): Z95.0 - PRESENCE OF CARDIAC PACEMAKER Status: Chronic Priority: Medium Current Visit: No (5) GRABIEL on CPAP SNOMED Code(s): 17986650 Code(s): G47.33 - OBSTRUCTIVE SLEEP APNEA (ADULT) (PEDIATRIC) Status: Chronic Priority: Medium Current Visit: No Onset Date: 09/01/15 (6) CHF exacerbation SNOMED Code(s): 78639112 Code(s): I50.9 - HEART FAILURE, UNSPECIFIED Status: Acute Priority: High Current Visit: Yes Qualifiers: Heart failure type: unspecified Qualified Code(s): I50.9 - Heart failure, unspecified - Problem List Review Problem List Initiated/Reviewed/Updated: Yes - My Orders Last 24 Hours: My Active Orders 07/07/18 15:45 RT Aerosol Therapy [RC] ASDIRECTED 07/07/18 16:00 Albuterol/Ipratropium [DuoNeb 3.0-0.5 MG/3 ML] 3 ml NEB QIDRT 07/07/18 21:00 Apixaban [Eliquis] 5 mg PO BID Metoprolol Succinate [Toprol XL] 100 mg PO BID Montelukast [Singulair] 10 mg PO BEDTIME Vitamin B Complex with C [Super B With Vitamin C] 1 cap PO BID guaiFENesin [Mucinex] 1,200 mg PO BID guanFACINE 1 mg PO BEDTIME 07/08/18 09:00 Aspirin 81 mg PO DAILY Citalopram [Celexa] 20 mg PO DAILY Furosemide [Lasix] 20 mg IVPUSH DAILY Mometasone/Formoterol [Dulera 100-5 MCG] 1 puff IH BID Multivitamins,Therapeutic [Thera] 1 each PO DAILY amLODIPine [Norvasc] 5 mg PO DAILY - Plan Plan:: I/P: Acute: Fever of unknown origin -Presented to ED with chills and SOB -104.2 degree fever in ED, Oxygen saturations aroun 87% -Chronic cough, no sputum production -WBC 22.23-->33.46-->13.29 -CRP 11.4-->16.2 -Refused blood cultures and Lactic acid in ED - eventually obtained on floor after abx were given -Lactic acid 2.5-->2.0-->1.5 -Meets sepsis criteria -CXR in ED shows chronic elevated left hemidiaphragm causing mild left basilar atelectasis, chronic congested pulmonary vessels, enlarged heart, pacemaker -CT on 07/06/[address] Nails: * 1. 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 * 2. Elevated left hemidiaphragm which is chronic with adjacent Pregnyl density most likely due to chronic atelectasis. * 3. Other incidental findings. -UA negative -Blood cultures negative although obtained after abx given -Started on azithromycin and rocephin in ED -> symptoms and labs worsened -> discontinue -Mycoplasma negative -Strep pneumo negative -Influenza negative -VRP Negative -Procalcitonin 2.06 -Sputum culture negative -No signs of skin infection -On eliquis BID -IV fluids as ordered -Vancomycin started -Cefepime started -Zosyn started -Will de-escalate antibiotics tomorrow. Renal failure, improving -Acute on chronic -Baseline GFR appears to be in 50's -BUN 52-->54-->43 -Creatinine 2.0-->2.1-->1.7 -eGFR 33-->31-->39 -250ml fluid bolus given -IV fluids as ordered -Caution with worsening CHF -Home medications as ordered CHF -SOB, Trace pedal edema, Chronic pulmonary vascular congestion on CXR -BNP 810-->3128-->2100 -IV fluids given due to sepsis criteria, fever -Echo obtained and pending Resolved: AMS -Was lethargic and confused in ED -Improved to resolved on floor -[employer] evaluation ordered -> no concerns Hypoxia -Not usually on home O2 -Requiring 3L here -> weaned off -O2 as needed, attempt to wean -Unknown reason -CXR/CT as above -RT/IS/Acapella -ABG in ED -pH 7.44 -pCO2 33.8 -pO2 63.0 -HCO3 22.4 -O2 Saturation 92.6 -Base excess -0.6 -A-a gradient 61 -Obtained while on nasal cannula at 1.5L Chronic: Paroxysmal A. 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 Jewels Tadeo
[2018-07-08] MEDS: guanFACINE 1 MG Tab PO SCH (20:27)
[2018-07-08] MEDS: Montelukast 10 MG Tab PO SCH (20:28)
[2018-07-08] MEDS ORDERED: traZODone 50 MG Tab PO PRN (20:51)
[2018-07-08] MEDS ORDERED: Benzonatate 100 MG Cap PO PRN (21:24)
[2018-07-09] MEDS: Piperacillin/Tazobactam 4.5 GM in Sodium Chloride 0.9% 100 ML IV SCH ×2 (03:35→12:56)
[2018-07-09] MEDS: Albuterol/Ipratropium 3.0-0.5 MG/3 ML Neb Soln NEB SCH ×2 (05:11→09:23)
--- NOTE | 2018-07-09 06:41 | PCM.DCSUM1 ---
Discharge Summary - Hospital Course HPI Initial Comments: Darrick Dougherty is a 77 yo male who presents to our ED on 07/06/18 with shortness of breath. In the ED he is accompanied by his and both are very poor historians. He reports that he is very cold and apparently started feeling poor around [id number]. He complained of shivering and feeling short of breath and requested an ambulance be called. His chronic cough with clear sputum but states is no different now than usual. Denies recent nausea, vomiting, constipation, diarrhea, urinary symptoms. Denies chest pain or palpitations. Reports he does have a history of heart failure but denies orthopnea. Reports that he has had similar symptoms in the past. Reports this occurs about once a year and is usually self-limited. He has not had a prior medical evaluation for these symptoms. Diagnosis underlying lung disease although it is felt he may have an underlying COPD. He has GRABIEL and uses CPAP nightly supplement oxygen at 2 L. Does not wear oxygen during the day. He does have a previous history of a prior stroke and does have some residual swallowing difficulties. He does not eat a special diuretic thickened liquids in the ED his temperature is 104.2 with an oxygen saturation of 87% on room air. He is placed on 1.5 L via nasal cannula and his saturations increased to 94%. He is to But not tachycardic. He does report a see a medical claims specialist in [place] but does not recall the name. Vaccinations are up-to-date and he did get an influenza vaccine this season. In the ED pulse is 61. Her respirations 28. Blood pressure 141/94. Pulse ox 87%. 12-lead EKG shows a paced rhythm at 60 bpm with no change since 09/01/15. Labs are obtained showing WBC of 22.23. Hemoglobin 14.0. Hematocrit 44.2. He is macrocytic. Platelets 237,000. Neutrophils are elevated at 86%. There is no bandemia. Sodium is 141. Potassium 4.6. Chloride 102. I would ask at 27. Anion gap 16.6. BUN is 52. Creatinine 2.0. EGFR 33. Glucose is 125. Calcium 9.6. Magnesium 2.2. Bilirubin 0.4. AST is 19, ALT 39, alkaline phosphatase 71. Troponin less than 0.017. Protein 7.9. Albumin 4.0. ABGs obtained in the right radial showing a pH of 7.44. PCO2 is 33.8. PO2 is low at 63. Bicarbonate 22.4. Oxygen saturation 92.6. Base excess -0.6. This is on 1.5 L via nasal cannula. ProBNP is 810. UA is negative however one plus protein and few amorphus sediment is noted. Chest x-ray is interpreted by Dr. Nails is having an "elevated left hemidiaphragm which appears chronic causing mild left basilar atelectasis. [place] vessels are slightly congestion which appears chronic. Heart is enlarged. Previous sternotomy is noted. Pacemaker is present. Bony structures grossly intact." Patient initially refuses blood cultures and lactic acid the blood draw even after being told of the importance. Influenza screen is negative. He carries a history of: Paroxysmal A. 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 He did undergo a coronary artery bypass 2 vessels around 2008. He is a former smoker. His PCP is Dr. Jewels Tadeo. Diagnosis: Stroke: No - Discharge Data Discharge Date: 07/09/18 (Admit Date:07/07/18) Discharge Disposition: Home, Self-Care 01 Condition: Good - Discharge Diagnosis/Problem(s) (1) Renal insufficiency SNOMED Code(s): 025928100, 920072896 ICD Code: N28.9 - DISORDER OF KIDNEY AND URETER, UNSPECIFIED Status: Acute Priority: High (2) Pacemaker SNOMED Code(s): 043986138 ICD Code: Z95.0 - PRESENCE OF CARDIAC PACEMAKER Status: Chronic Priority : Medium (3) GRABIEL on CPAP SNOMED Code(s): 55802562 ICD Code: G47.33 - OBSTRUCTIVE SLEEP APNEA (ADULT) (PEDIATRIC) Status: Chronic Priority: Medium Onset Date: 09/01/15 (4) CHF exacerbation SNOMED Code(s): 80522000 ICD Code: I50.9 - HEART FAILURE, UNSPECIFIED Status: Acute Priority: High Qualifiers: Heart failure type: unspecified Qualified Code(s): I50.9 - Heart failure, unspecified (5) Bronchitis SNOMED Code(s): 98126426 ICD Code: J40 - BRONCHITIS, NOT SPECIFIED ACUTE OR CHRONIC Status: Acute - Patient Summary/Data Consults: Consultations 07/07/18 07:08 Consult to Case Management/Bonding Equipment Operator [CONS] Routine Consult to Spiritual Care [CONS] Routine OT Evaluation and Treatment [CONS] Routine PT Evaluation and Treatment [CONS] Routine Respiratory Care Assess and Treatment [CONS] Routine Labs Pending at D/C: None Recommended Follow-up Testing/Procedures: Follow-up with your PCP, Dr. Tadeo, within 7-10 days of discharge. Hospital Course: I/P: Acute: Bronchitis -Presented to ED with chills and SOB -104.2 degree fever in ED, Oxygen saturations aroun 87% -Chronic cough, no sputum production -WBC 22.23-->33.46-->13.29-->11.66 -CRP 11.4-->16.2-->11.1 -Refused blood cultures and Lactic acid in ED - eventually obtained on floor after abx were given -Lactic acid 2.5-->2.0-->1.5 -Meets sepsis criteria -CXR in ED shows chronic elevated left hemidiaphragm causing mild left basilar atelectasis, chronic congested pulmonary vessels, enlarged heart, pacemaker -CT on 07/06/[address] Nails: * 1. 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 * 2. Elevated left hemidiaphragm which is chronic with adjacent Pregnyl density most likely due to chronic atelectasis. * 3. Other incidental findings. -UA negative -Blood cultures negative although obtained after abx given -Started on azithromycin and rocephin in ED -> symptoms and labs worsened -> discontinued -Mycoplasma negative -Strep pneumo negative -Influenza negative -VRP Negative -Procalcitonin 2.06 -Sputum culture negative - normal vern -No signs of skin infection -On eliquis BID -IV fluids as ordered -Vancomycin started -> discontinue -Cefepime started -> discontinue -Zosyn started -> discontinue -Discharged on azithromycin Renal failure, improving -Acute on chronic -Baseline GFR appears to be in 50's -BUN 52-->54-->43-->35 -Creatinine 2.0-->2.1-->1.7-->1.5 -eGFR 33-->31-->39-->46 -250ml fluid bolus given -IV fluids as ordered -Caution with worsening CHF -Home medications as ordered CHF -SOB, Trace pedal edema, Chronic pulmonary vascular congestion on CXR -BNP 810-->3128-->2100-->7689 -IV fluids given due to sepsis criteria, fever -Diuretics as ordered - resume home dosing -Echo obtained 07/08/18 * 1. The visualized wall segment contracted normally, but not all collins are seen. The ejection fraction appears normal at 50-60%. * 2. The right ventricle wall was not well visualized * 3. Moderately dilated left atrium * 4. Mildly dilated right atrium * 5. There is mild aortic valve sclerosis * 6. Trace mitral valve regurgitation * 7. Mild tricuspid valve regurgitation * 8. The right ventricular systolic pressure is mildly elevated at 39.4 mmHg Resolved: AMS -Was lethargic and confused in ED -Improved to resolved on floor -FAMILY RESOURCE MANAGEMENT PROFESSOR evaluation ordered -> no concerns Hypoxia -Not usually on home O2 -Requiring 3L here -> weaned off -O2 as needed, attempt to wean -Unknown reason -CXR/CT as above -RT/IS/Acapella -ABG in ED -pH 7.44 -pCO2 33.8 -pO2 63.0 -HCO3 22.4 -O2 Saturation 92.6 -Base excess -0.6 -A-a gradient 61 -Obtained while on nasal cannula at 1.5L Chronic: Paroxysmal A. fib CAD heart failure hypertension ND around 2008 sleep apnea with nightly CPAP use chronic back pain CVA resulting in swallowing difficulty anxiety hypothyroidism obesity coronary artery bypass 2 vessels around 2008 Plan: Admit to medical floor observation with telemetry -> upgraded to inpatient PT/OT Other orders as indicated above Home medications as ordered CM/SW Spiritual care consult DVT prophylaxis: Home elequis Code status: Full code; PCP: Dr. Jewels Tadeo Ed presented to our ED with fever and shortness of breath. Given azithromycin and Rocephin in the ED however he continued to have symptoms and his fever and labs worsend. Lactic acid returned elevated and he was started on sepsis protocol. IV fluids were given and cefepime, Zosyn, and vancomycin were started. Blood cultures were obtained however they were obtained after initial antibiotics were given. These returned negative. His infectious workup was grossly negative including UA, sputum culture, influenza, strep pneumonia, mycoplasma, and viral respiratory panel. Chest CT and chest x-ray were obtained as above. He is on Eliquis and had no signs of DVT. No signs of any skin infection. He was noted to have some acute on chronic renal failure and this did improve throughout his stay. Echo was obtained as above and he was eventually restarted on his home diuretics. Clinically prior to discharge he did not have any signs of fluid overload. He reported he felt back to baseline and was weaned off oxygen. He was discharged home on albuterol nebulizer, 4 more days of 250 mg by mouth azithromycin, 20 days of a probiotic, and when necessary Tessalon Perles. He was refusing Robitussin-DM while here because he did not like the taste. He was advised to obtain this at a pharmacy or [facility] as there were other flavors available after discharge. He was instructed to continue using his incentive spirometry and a cappella until symptoms completely resolve. He was instructed to contact his primary care provider or return to the emergency room should symptoms return or worsen. Home medications were continued. He was instructed to continue to monitor his weight daily. - Patient Instructions Diet: Low Sodium Activity: As Tolerated Driving: Do Not Drive (today) Showering/Bathing: May Shower Notify Provider of: Fever, Increased Pain, Nausea and/or Vomiting - Discharge Plan *PRESCRIPTION DRUG MONITORING PROGRAM REVIEWED*: No *COPY OF PRESCRIPTION DRUG MONITORING REPORT IN PATIENT TRU: No Prescriptions/Med Rec: Albuterol [Proventil] 2.5 mg INH TID #15 neb Azithromycin [Zithromax] 250 mg PO DAILY #4 tab Bacillus Coagulans [Probiotic] 1 each PO DAILY #20 capsule. Benzonatate [Tessalon Perle] 100 mg PO TID PRN #15 capsule PRN Reason: Cough Home Medications: Home Meds Acetaminophen [Tylenol] 1 - 2 tab PO Q6HR PRN 07/07/18 [History] Albuterol Sulfate [Albuterol Sulfate Hfa] 2 puff INH TID 07/07/18 [History] Apixaban [Eliquis] 5 mg PO BID 07/07/18 [History] Aspirin [Tia Chewable Aspirin] 81 mg PO DAILY 07/07/18 [History] Calc/D3/Mag/Zn/Slope Tender/Wilder/Braggs [Calcium 600 MG Plus Vit D] 1 tab PO DAILY [History] Cyactiv. 6 tab PO DAILY 07/07/18 [History] Escitalopram Oxalate 10 mg PO DAILY 07/07/18 [History] Fluticasone/Vilanterol [Breo Ellipta 100-25 MCG Inhalation Kit] 1 puff INH DAILY 07/07/18 [History] Furosemide [Lasix] 80 mg PO DAILY 07/07/18 [History] Lisinopril 5 mg PO DAILY 07/07/18 [History] Metoprolol Succinate [Toprol Xl] 100 mg PO BID 07/07/18 [History] Montelukast Sodium 10 mg PO BEDTIME 07/07/18 [History] Multivit-Min/Iron Fum/Folic AC [Yfcpk-Wtqaghv-Sxndrbgk Tablet] 1 tab PO DAILY [History] [place]-3/DHA/Epa/Fish Oil [[place]-3 Fish Oil 1,000 MG Sfgl] 2,000 mg PO DAILY [History] Plasmaflo. 2 tab PO DAILY 07/07/18 [History] Rosuvastatin Calcium 20 mg PO DAILY 07/07/18 [History] Stem Cell. 6 tab PO DAILY 07/07/18 [History] Vitamin B Complex 1 tab PO BID 07/07/18 [History] amLODIPine [Norvasc] 5 mg PO DAILY 07/07/18 [History] guaiFENesin [Mucinex] 1,200 mg PO BID 07/07/18 [History] guanFACINE 1 mg PO BEDTIME 07/07/18 [History] Albuterol [Proventil] 2.5 mg INH TID #15 neb 07/09/18 [Rx] Azithromycin [Zithromax] 250 mg PO DAILY #4 tab 07/09/18 [Rx] Bacillus Coagulans [Probiotic] 1 each PO DAILY #20 capsule. 07/09/18 [Rx] Benzonatate [Tessalon Perle] 100 mg PO TID PRN #15 capsule 07/09/18 [Rx] Hydrocodone/Chlorphen P-Stirex [Tussionex Pennkinetic Susp] 5 ml PO Q12H PRN # 60 ml 07/10/18 [Rx] Oseltamivir [Tamiflu] 75 mg PO BID #10 cap 07/10/18 [Rx] Oxygen Therapy Mode: Room Air Patient Handouts: Fever, Adult, Low-Sodium Eating Plan, Heart Failure, Easy-to- Read Referrals: Jewels Tadeo MD [Primary Care Provider] - 07/16/18 2:00 pm (Patient to see Dr. Tadeo on 07/16/2018 at 2:00pm. Please arrive 15minutes early for appointment.) - Discharge Summary/Plan Comment DC Time >30 min.: Yes (45 mins ) - General Info Date of Service: 07/09/18 Admission Dx/Problem (Free Text: Admission Diagnosis/Problem Admission Diagnosis/Problem Fever Subjective Update: In to see Ed. He is sitting up in the chair and doing very well. He reports he feels very good. No nursing or patient concerns. He will be discharged today. Functional Status: Reports: Pain Controlled, Tolerating Diet, Ambulating, Urinating, Incentive Spirometry, Other (acapella ). Denies: New Symptoms - Review of Systems General: Reports: No Symptoms. Denies: Fever, Weakness, Fatigue, Malaise, Chills HEENT: Reports: No Symptoms. Denies: Headaches, Sore Throat Pulmonary: Reports: Shortness of Breath (chronic and at baseline currently ), Cough (chronic and at baseline currently ), Wheezing (chronic and at baseline currently ). Denies: Pleuritic Chest Pain, Sputum Cardiovascular: Reports: Dyspnea on Exertion (chronic and at baseline currenlty ). Denies: Chest Pain, Palpitations Gastrointestinal: Reports: No Symptoms. Denies: Abdominal Pain, Constipation, Diarrhea, Nausea, Vomiting Genitourinary: Reports: No Symptoms. Denies: Pain Musculoskeletal: Reports: No Symptoms Skin: Reports: No Symptoms Neurological: Reports: No Symptoms. Denies: Confusion, Numbness, Tingling, Trouble Speaking, Difficulty Walking, Weakness, Gait Disturbance Psychiatric: Reports: No Symptoms - Patient Data Vitals - Most Recent: Last Vital Signs Temp 98.6 F 07/09/18 02:57 Pulse 77 07/09/18 02:57 Resp 18 07/09/18 02:57 BP 136/89 07/09/18 02:57 Pulse Ox 92 L 07/09/18 02:57 Weight - Most Recent: 289 lb 14.4 oz I&O - Last 24 hours: Intake & Output 07/08/18 07/08/18 07/09/18 14:59 22:59 06:59 Intake Total 220 800 650 Output Total 1100 1550 Balance 220 300 -900 Lab Results - Last 24 hrs: Laboratory Results - last 24 hr 07/08/18 07/08/18 07/08/18 Range/Units 06:24 06:24 06:24 WBC 13.29 H (4.23-9.07) K/mm3 RBC 4.08 L (4.63-6.08) M/mm3 Hgb 12.2 L (13.7-17.5) gm/L Hct 38.1 L (40.1-51.0) % MCV 93.4 H (79.0-92.2) fl MCH 29.9 (25.7-32.2) pg MCHC 32.0 L (32.2-35.5) g/dl RDW Std Deviation 45.5 H (35.1-43.9) fL Plt Count 185 (163-337) K/mm3 MPV 11.2 (9.4-12.3) fl Neut % (Auto) 78.4 H (34.0-67.9) % Lymph % (Auto) 9.3 L (21.8-53.1) % [place] % (Auto) 10.4 (5.3-12.2) % Eos % (Auto) 1.5 (0.8-7.0) Baso % (Auto) 0.2 (0.1-1.2) % Neut # (Auto) 10.43 H (1.78-5.38) K/mm3 Lymph # (Auto) 1.24 L (1.32-3.57) K/mm3 [place] # (Auto) 1.38 H (0.30-0.82) K/mm3 Eos # (Auto) 0.20 (0.04-0.54) K/mm3 Baso # (Auto) 0.02 (0.01-0.08) K/mm3 Manual Slide Review Abnormal smear Sodium 137 (136-145) mEq/L Potassium 4.3 (3.5-5.1) mEq/L Chloride 102 (98-107) mEq/L Carbon Dioxide 25 (21-32) mEq/L Anion Gap 14.3 (5-15) BUN 43 H (7-18) mg/dL Creatinine 1.7 H (0.7-1.3) mg/dL Est Cr Clr Drug Dosing 41.78 mL/min Estimated GFR (MDRD) 39 (>60) mL/min BUN/Creatinine Ratio 25.3 H (14-18) Glucose 126 H (83-115) mg/dL Calcium 8.4 L (8.5-10.1) mg/dL Magnesium 2.3 (1.8-2.4) mg/dl C-Reactive Protein 16.2 H* (<1.0) mg/dL NT-Pro-B Natriuret Pep 2100 H (0-450) pg/mL BRITANY Results - Last 24 hrs: Microbiology 07/07/18 04:15 Aerobic Blood Culture - Preliminary Blood - Venous - Lab Draw NO GROWTH AFTER 2 DAYS Anaerobic Blood Culture - Preliminary NO GROWTH AFTER 2 DAYS 07/07/18 04:00 Aerobic Blood Culture - Preliminary Blood - Venous NO GROWTH AFTER 2 DAYS Anaerobic Blood Culture - Preliminary NO GROWTH AFTER 2 DAYS 07/07/18 09:14 Gram Stain - Final Sputum - Expectorated Sputum Culture - Preliminary Med Orders - Current: Current Medications Acetaminophen (Tylenol) 650 mg PO Q4H PRN PRN Reason: Fever Last Admin: 07/08/18 14:05 Dose: 650 mg Hydrocodone Bitart/Acetaminophen ([place] 325-5 Mg) 1 tab PO Q4H PRN PRN Reason: Pain (moderate 4-6) Albuterol/Ipratropium (Duoneb 3.0-0.5 Mg/3 Ml) 3 ml NEB QIDRT [facility] Last Admin: 07/09/18 05:11 Dose: 3 ml Amlodipine Besylate (Norvasc) 5 mg PO DAILY [facility] Last Admin: 07/08/18 10:35 Dose: 5 mg Apixaban (Eliquis) 5 mg PO BID [facility] Last Admin: 07/08/18 20:28 Dose: 5 mg Aspirin (Aspirin) 81 mg PO DAILY [facility] Last Admin: 07/08/18 10:36 Dose: 81 mg Benzonatate (Tessalon Perles) 100 mg PO TID PRN PRN Reason: Cough Last Admin: 07/08/18 21:40 Dose: 100 mg Bisacodyl (Dulcolax) 5 mg PO DAILY PRN PRN Reason: Constipation Citalopram Hydrobromide (Celexa) 20 mg PO DAILY [facility] Last Admin: 07/08/18 10:36 Dose: 20 mg Furosemide (Lasix) 20 mg IVPUSH DAILY [facility] Last Admin: 07/08/18 11:26 Dose: 20 mg Guaifenesin (Mucinex) 1,200 mg PO BID [facility] Last Admin: 07/08/18 20:27 Dose: 1,200 mg Guanfacine HCl (Guanfacine) 1 mg PO BEDTIME [facility] Last Admin: 07/08/18 20:27 Dose: 1 mg Hydralazine HCl (Apresoline) 20 mg IVPUSH Q4H PRN PRN Reason: Hypertension Hydromorphone HCl (Dilaudid) 0.25 mg IVPUSH Q2H PRN PRN Reason: Pain (severe 7-10) Vancomycin HCl 2 gm/ Sodium (Chloride) 500 mls @ 250 mls/hr IV Q24H [facility] Last Admin: 07/08/18 11:15 Dose: 250 mls/hr Cefepime HCl 2 gm/ Premix 50 mls @ 100 mls/hr IV Q12H [facility] Last Admin: 07/08/18 22:10 Dose: 100 mls/hr Piperacillin Sod/Tazobactam (Sod 4.5 gm/ Sodium Chloride) 100 mls @ 25 mls/hr IV Q8H [facility] Last Admin: 07/09/18 03:35 Dose: 25 mls/hr Lorazepam (Ativan) 0.5 mg IV Q6H PRN PRN Reason: Anxiety Magnesium Sulfate (Pharmacy To Dose - Magnesium Replacement) 1 dose .XX ASDIRECTED [facility] Metoprolol Succinate (Toprol Xl) 100 mg PO BID [facility] Last Admin: 07/08/18 20:25 Dose: 100 mg Metoprolol Tartrate (Lopressor) 5 mg IVPUSH Q4H PRN PRN Reason: Tachycardia Mometasone Furoate/Formoterol Fumar (Dulera 100-5 Mcg) 1 puff IH BID [facility] Last Admin: 07/08/18 20:34 Dose: 1 puff Montelukast Sodium (Singulair) 10 mg PO BEDTIME [facility] Last Admin: 07/08/18 20:28 Dose: 10 mg Multivitamins (Thera) 1 each PO DAILY [facility] Last Admin: 07/08/18 10:36 Dose: 1 each Ondansetron HCl (Zofran) 4 mg IV Q6H PRN PRN Reason: Nausea/Vomiting Polyethylene Glycol (Miralax) 17 gm PO DAILY PRN PRN Reason: Constipation Potassium Chloride (Pharmacy To Dose - Potassium Replacement) 1 dose .XX ASDIRECTED [facility] Saccharomyces Boulardii (Florastor) 250 mg PO BID [facility] Last Admin: 07/08/18 20:26 Dose: 250 mg Senna/Docusate Sodium (Senna Plus) 1 tab PO BID PRN PRN Reason: Constipation Trazodone HCl (Trazodone) 50 mg PO ONETIME PRN PRN Reason: Insomnia Last Admin: 07/08/18 21:17 Dose: 50 mg Vancomycin HCl (Pharmacy To Dose - Vancomycin) 1 dose .XX ASDIRECTED [facility] Vitamin B Complex/Vitamin C (Super B With Vitamin C) 1 cap PO BID [facility] Last Admin: 07/08/18 20:27 Dose: 1 cap Discontinued Medications Albuterol/Ipratropium (Duoneb 3.0-0.5 Mg/3 Ml) 3 ml NEB Q4H PRN PRN Reason: Shortness Of Breath/wheezing Furosemide (Lasix) 40 mg IVPUSH NOW ONE Stop: 07/06/18 22:13 Last Admin: 07/06/18 22:44 Dose: 40 mg Furosemide (Lasix) 80 mg PO DAILY [facility] Guaifenesin/Phenylephrine HCl (Robitussin Dm) 10 ml PO TID@0700,1400,2100 [facility] Last Admin: 07/08/18 14:07 Dose: Not Given Azithromycin 500 mg/ Sodium (Chloride) 250 mls @ 250 mls/hr IV ONETIME ONE Stop: 07/07/18 01:27 Last Admin: 07/07/18 01:33 Dose: 250 mls/hr Ceftriaxone Sodium 2 gm/ (Sodium Chloride) 100 mls @ 200 mls/hr IV Q24H [facility] Last Admin: 07/07/18 00:47 Dose: 200 mls/hr Sodium Chloride (Normal Saline) 1,000 mls @ 30 mls/hr IV ASDIRECTED [facility] Last Infusion: 07/07/18 07:00 Dose: 30 mls/hr Piperacillin Sod/Tazobactam (Sod 4.5 gm/ Sodium Chloride) 100 mls @ 200 mls/hr IV ONETIME ONE Stop: 07/07/18 08:59 Last Admin: 07/07/18 09:09 Dose: 200 mls/hr Cefepime HCl 2 gm/ Premix 50 mls @ 100 mls/hr IV Q12H [facility] Last Admin: 07/08/18 10:31 Dose: 100 mls/hr Piperacillin Sod/Tazobactam (Sod 4.5 gm/ Sodium Chloride) 100 mls @ 25 mls/hr IV Q8H [facility] Last Admin: 07/08/18 12:48 Dose: Not Given Sodium Chloride (Normal Saline) 1,000 mls @ 125 mls/hr IV ASDIRECTED [facility] Sodium Chloride (Normal Saline) 1,000 mls @ 100 mls/hr IV ASDIRECTED [facility] Ondansetron HCl (Zofran) 4 mg IVPUSH ONETIME ONE Stop: 07/06/18 23:40 Last Admin: 07/06/18 23:43 Dose: 4 mg Vancomycin HCl (Vancomycin) 1,973.805 mg 15 mg/kg (1973.805 mg) IV Q12H [facility] Last Admin: 07/07/18 08:57 Dose: Not Given - Exam Quality Assessment: Reports: DVT Prophylaxis. Denies: Supplemental Oxygen General: Reports: Alert, Oriented, Cooperative, No Acute Distress HEENT: Reports: Pupils Equal, Pupils Reactive, EOMI, Mucous Membr. Moist/[place] Neck: Reports: Supple, Trachea Midline Lungs: Reports: Normal Respiratory Effort, Decreased Breath Sounds, Wheezing ( very mild ) Cardiovascular: Reports: Regular Rate, Regular Rhythm GI/Abdominal Exam: Normal Bowel Sounds, Soft, Non-Tender, No Distention, No Abnormal Bruit (Male) Exam: Deferred Rectal (Males) Exam: Deferred Back Exam: Reports: Normal Inspection, Full Range of Motion Extremities: Normal Inspection, Normal Range of Motion, Non-Tender, Normal Capillary Refill, Pedal Edema (trace bilaterally ) Skin: Reports: Warm, Dry, Intact Neurological: Reports: No New Focal Deficit Psy/Mental Status: Reports: Alert, Normal Affect, Normal Mood
[2018-07-09 09:09] VITALS: BP 139/89
[2018-07-09] MEDS: Aspirin 81 MG Tab.Chew PO SCH (09:10)
[2018-07-09] MEDS: Citalopram 20 MG Tab PO SCH (09:10)
[2018-07-09] MEDS: Saccharomyces Boulardii (Probiotic) 250 MG Cap PO SCH (09:11)
[2018-07-09] MEDS: Apixaban 5 MG Tab PO SCH (09:11)
[2018-07-09] MEDS: Furosemide 20 MG/2 ML VIAL IVPUSH SCH (09:12)
[2018-07-09] MEDS: guaiFENesin 600 MG Tab.ER PO SCH (09:12)
[2018-07-09] MEDS: amLODIPine 5 MG Tab PO SCH (09:12)
[2018-07-09] MEDS: Multivitamins,Therapeutic Tab PO SCH (09:13)
[2018-07-09] MEDS: Vitamin B Complex With Vitamin C Cap PO SCH (09:13)
[2018-07-09] MEDS: Metoprolol Succinate 50 MG Tab.ER PO SCH (09:14)
[2018-07-09] MEDS: Formoterol/Mometasone 100-5 MCG 8.8 GM Inhaler IH SCH (09:23)
[2018-07-09] MEDS: Cefepime 2 GM in Premix Bag 1 BAG IV SCH (10:41)
[2018-07-09] MEDS ORDERED: Bumetanide 1 MG/4 ML MDV IVPUSH ONE (13:00)
== END 2018-07-09 14:41 | disposition home or self-care (01) | DRG 872 ==
LOC: JD.ED 21:09 → JD.MS 07-07 02:49 → OBSVTOIN 07-07 10:26
PROVIDERS: ADMIT Internal Medicine; ATTEND Internal Medicine
DX: I11.0 Hypertensive heart disease with heart failure (principal); A41.9 Sepsis, unspecified organism; E87.3 Alkalosis; N17.9 Acute kidney failure, unspecified; I13.0 Hypertensive heart and chronic kidney disease with heart failure and stage 1 through stage 4 chronic kidney disease, or unspecified chronic kidney disease; N28.9 Disorder of kidney and ureter, unspecified; J44.9 Chronic obstructive pulmonary disease, unspecified; I50.9 Heart failure, unspecified; G47.33 Obstructive sleep apnea (adult) (pediatric); R09.02 Hypoxemia; R13.10 Dysphagia, unspecified; I69.391 Dysphagia following cerebral infarction; I48.0 Paroxysmal atrial fibrillation; I25.10 Atherosclerotic heart disease of native coronary artery without angina pectoris; M19.90 Unspecified osteoarthritis, unspecified site; F32.9 Major depressive disorder, single episode, unspecified; R42 Dizziness and giddiness; N18.9 Chronic kidney disease, unspecified; M54.9 Dorsalgia, unspecified; G89.29 Other chronic pain; G62.9 Polyneuropathy, unspecified; F41.9 Anxiety disorder, unspecified; E03.9 Hypothyroidism, unspecified; R50.9 Fever, unspecified; R53.1 Weakness; R06.82 Tachypnea, not elsewhere classified; R00.0 Tachycardia, unspecified; R05 Cough; R06.02 Shortness of breath; H54.7 Unspecified visual loss; I25.2 Old myocardial infarction; E66.9 Obesity, unspecified; Z68.36 Body mass index [BMI] 36.0-36.9, adult; Z95.1 Presence of aortocoronary bypass graft; Z87.891 Personal history of nicotine dependence; Z88.8 Allergy status to other drugs, medicaments and biological substances; Z79.899 Other long term (current) drug therapy; Z79.01 Long term (current) use of anticoagulants; Z79.82 Long term (current) use of aspirin; Z79.52 Long term (current) use of systemic steroids; Z95.0 Presence of cardiac pacemaker; Z87.01 Personal history of pneumonia (recurrent); Z95.5 Presence of coronary angioplasty implant and graft; Z90.49 Acquired absence of other specified parts of digestive tract
CPT/HCPCS: 36415; 36600; 71045; 71250; 80048; 80053; 82803; 83605 ×2; 83735; 83880 ×2; 84145; 84484; 85007 ×2; 85027 ×2; 86140; 86738; 87040 ×2; 87070; 87205; 87486; 87581; 87632; 87798; 87804 ×2; 87899; 93005; 94667; 96365; 96367; 96375 ×2; 97162; 99285; A9270 ×2; J0456; J0692; J0696; J1940; J2405; J2543; J7030 ×2; J7040; J7050; 81001; 85025; 93010; 93306; 94640; 94668; 94760; 94761; 97116-GP; 97165-GO; 97530-GP; J3370; J3490; J7620-GY

== ENCOUNTER 2018-07-10 16:17 | Emergency (ER) | payer MEDICARE, OTHER ==
[2018-07-10] MEDS ORDERED: Sodium Chloride 0.9% 10 ML Syringe FLUSH PRN (17:09)
--- NOTE | 2018-07-10 17:14 | EDM.PDOC ---
ED HPI GENERAL MEDICAL PROBLEM - General Chief Complaint: Respiratory Problem Stated Complaint: DICHARGED YESTERDAY FEVER BACK TODAY Time Seen by Provider: 07/10/18 17:00 Source of Information: Reports: Patient, Family (daughters) History Limitations: Reports: No Limitations - History of Present Illness INITIAL COMMENTS - FREE TEXT/NARRATIVE: 77-year-old male reports he is been in the hospital for 2 days with fever chills and treated with antibiotics for suspect exacerbation of COPD. he was admitted to hospital on July 07 and discharged home yesterday. This morning he spiked a temperature 101.6 and did experience chills with rigors again. He states he is coughing paroxysmal he not bringing up much sputum. He has COPD and is using a home nebulizer for treatments at this time. Just started today. He went home on Zithromax and apparently has 2 days left of medication. He states his bowels work good today. He slept good last night as well. He has had a gram of Tylenol about an hour before coming to the ED. Onset: Sudden Onset Date: 07/09/18 Onset Time: 23:55 Duration: Hour(s): Location: Reports: Chest (Chronic COPD.) Bilateral Lower Abdominal Pain Score (Numeric/FACES): 8 lower back Pain Score (Numeric/FACES): 4 - Related Data Allergies Allergy/AdvReac Type Severity Reaction Status Date / Time PRANEETH Inhibitors AdvReac Intermediate Other Verified 07/07/18 08:20 meperidine HCl [From Demerol] AdvReac Hypotension Verified 07/07/18 08:19 Home Meds: Home Meds Acetaminophen [Tylenol] 1 - 2 tab PO Q6HR PRN 07/07/18 [History] Albuterol Sulfate [Albuterol Sulfate Hfa] 2 puff INH TID 07/07/18 [History] Apixaban [Eliquis] 5 mg PO BID 07/07/18 [History] Aspirin [Tia Chewable Aspirin] 81 mg PO DAILY 07/07/18 [History] Calc/D3/Mag/Zn/Surgery Specialist/Wilder/[place]draugh [Calcium 600 MG Plus Vit D] 1 tab PO DAILY [History] Cyactiv. 6 tab PO DAILY 07/07/18 [History] Escitalopram Oxalate 10 mg PO DAILY 07/07/18 [History] Fluticasone/Vilanterol [Breo Ellipta 100-25 MCG Inhalation Kit] 1 puff INH DAILY 07/07/18 [History] Furosemide [Lasix] 80 mg PO DAILY 07/07/18 [History] Lisinopril 5 mg PO DAILY 07/07/18 [History] Metoprolol Succinate [Toprol Xl] 100 mg PO BID 07/07/18 [History] Montelukast Sodium 10 mg PO BEDTIME 07/07/18 [History] Multivit-Min/Iron Fum/Folic AC [Mwdwf-Pptkrtu-Djveqehu Tablet] 1 tab PO DAILY [History] [place]-3/DHA/Epa/Fish Oil [[place]-3 Fish Oil 1,000 MG Sfgl] 2,000 mg PO DAILY [History] Plasmaflo. 2 tab PO DAILY 07/07/18 [History] Rosuvastatin Calcium 20 mg PO DAILY 07/07/18 [History] Stem Cell. 6 tab PO DAILY 07/07/18 [History] Vitamin B Complex 1 tab PO BID 07/07/18 [History] amLODIPine [Norvasc] 5 mg PO DAILY 07/07/18 [History] guaiFENesin [Mucinex] 1,200 mg PO BID 07/07/18 [History] guanFACINE 1 mg PO BEDTIME 07/07/18 [History] Albuterol [Proventil] 2.5 mg INH TID #15 neb 07/09/18 [Rx] Azithromycin [Zithromax] 250 mg PO DAILY #4 tab 07/09/18 [Rx] Bacillus Coagulans [Probiotic] 1 each PO DAILY #20 capsule. 07/09/18 [Rx] Benzonatate [Tessalon Perle] 100 mg PO TID PRN #15 capsule 07/09/18 [Rx] Hydrocodone/Chlorphen P-Stirex [Tussionex Pennkinetic Susp] 5 ml PO Q12H PRN # 60 ml 07/10/18 [Rx] Oseltamivir [Tamiflu] 75 mg PO BID #10 cap 07/10/18 [Rx] Past Medical History HEENT History: Reports: Impaired Vision Cardiovascular History: Reports: Afib, Bypass, CAD, Heart Failure, Heart Murmur , Hypertension, AR, Pacemaker, Stents Other Cardiovascular History: dizziness Respiratory History: Reports: COPD, Pneumonia, Recurrent, Sleep Apnea, SOB Other Respiratory History: pt uses 2 pillows to sleep-has c-pap at home Genitourinary History: Reports: None Musculoskeletal History: Reports: Arthritis, Back Pain, Chronic Other Musculoskeletal History: low back surgery Neurological History: Reports: CVA, Neuropathy, Peripheral, Vertigo Psychiatric History: Reports: Anxiety, Depression, Panic Attack Other Psychiatric History: claustophobic Endocrine/Metabolic History: Reports: Hypothyroidism, Obesity/BMI 30+ - Infectious Disease History Infectious Disease History: Reports: Chicken Pox, Shingles - Past Surgical History HEENT Surgical History: Reports: Cataract Surgery, Other (See Below) Other HEENT Surgeries/Procedures: Bilateral Cardiovascular Surgical History: Reports: Coronary Artery Bypass, Pacer Respiratory Surgical History: Reports: None GI Surgical History: Reports: Cholecystectomy, Hernia, Inguinal Male Surgical History: Reports: None Endocrine Surgical History: Reports: None Neurological Surgical History: Reports: Lumbar Spine Musculoskeletal Surgical History: Reports: None Social & Family History - Family History Family Medical History: Noncontributory - Tobacco Use Smoking Status *Q: Unknown Ever Smoked - Caffeine Use Caffeine Use: Reports: Coffee - Recreational Drug Use Recreational Drug Use: No - Living Situation & Occupation Living situation: Reports: , with Spouse Occupation: Retired ED ROS GENERAL - Review of Systems Review Of Systems: See Below Constitutional: Reports: Fever, Chills, Malaise, Weakness, Fatigue, Night Sweats (With rigors this morning.), Decreased Appetite HEENT: Reports: Glasses, Hearing Loss (Mild hearing loss) Respiratory: Reports: Shortness of Breath, Wheezing (Has chronic COPD. Not oxygen dependent), Cough, Sputum. Denies: Pleuritic Chest Pain, Hemoptysis, Other Cardiovascular: Reports: Chest Pain (From coughing so much. He is also aware pain in his abdominal musculature from coughing so much.), Blood Pressure Problem, Dyspnea on Exertion (Minimal exertion makes him very short of breath.) , Edema (Lower extremities), Lightheadedness. Denies: Claudication, Orthopnea Endocrine: Reports: Fatigue. Denies: High Glucose, Low Glucose, Polydypsia GI/Abdominal: Reports: Abdominal Pain (Abdominal muscle pain from coughing so much.), Diarrhea (Was having diarrhea. Bowels are formed and normal this morning ), Decreased Appetite. Denies: Constipation, Nausea, Vomiting : Reports: Frequency, Other (Has BPH and nocturia usually 2 or 3. He's not convinced that he actually empties his bladder completely on voiding.). Denies : Discharge, Dysuria, Flank Pain, Hematuria Musculoskeletal: Reports: Neck Pain (Knees hips), Back Pain, Joint Pain. Denies : Shoulder Pain Skin: Reports: No Symptoms Neurological: Reports: No Symptoms, Change in Speech Hematologic/Lymphatic: Reports: No Symptoms Immunologic: Reports: No Symptoms ED EXAM, GENERAL - Physical Exam Exam: See Below Exam Limited By: No Limitations General Appearance: Alert, WD/WN, Mild Distress, Other (He is mildly tachypnea.) Eye Exam: Bilateral Eye: Globe Laceration Ears: Normal TMs Throat/Mouth: Normal Inspection, Normal Lips, Normal Teeth, Normal Oropharynx Head: Atraumatic, Normocephalic Neck: Normal Inspection, Limited Range of Motion. No: Carotid Bruit, Lymphadenopathy (L) (Has some crepitus and decreased range of motion from osteoarthritic changes.), Lymphadenopathy (R), Thyromegaly Respiratory/Chest: Chest Non-Tender, Respiratory Distress (Tachypnea at rest. O2 sats 92% on room air.), Decreased Breath Sounds (Increased breath sounds to the lower 25% of lung jane bilaterally.), Rhonchi (Get her rhonchi upper lobes. Partial paroxysmal productive sounding cough.). No: Lungs Clear (Lower ribs are tender to firm palpation from coughing so much.), Normal Breath Sounds Cardiovascular: Regular Rate, Rhythm, No Gallop, No Murmur, No Rub. No: Normal Peripheral Pulses, No Edema Peripheral Pulses: 1+: Posterior Tibial (L), Posterior Tibial (R), Dorsalis Pedis (L), Dorsalis Pedis (R) GI/Abdominal: Normal Bowel Sounds, No Mass, Other (Abdomen is distended and extremely firm palpation. No masses are palpable due to increased abdominal girth. Lower abdominal muscles were they insert along the iliac crest were inguinal ligament area are tender to touch.) Back Exam: Normal Inspection, Decreased Range of Motion. No: Full Range of Motion, CVA Tenderness (L), CVA Tenderness (R) Extremities: Normal Inspection, Pedal Edema, Slow Capillary Refill, Limited Range of Motion (Knees hips) Neurological: Alert ( show evidence of posterior 30 changes.), Oriented, CN II- XII Intact, Normal Cognition Psychiatric: Other (A little grouchy side as he feels he) Skin Exam: Warm ( was discharged to prematurely.), Dry, Intact, Normal Color, No Rash EKG INTERPRETATION EKG Date: 07/10/18 Time: 17:25 Rhythm: Other (Underlying rhythm is atrial fib/atrial flutter. Occasional ventricular paced beats appreciated.) Rate (Beats/Min): 79 [place]: LAD-Left [place] Deviation (Mild left axis deviation of -3) P-Wave: Absent QRS: LBBB EKG Interpretation Comments: No further analysis attempted due to paced rhythm. Course - Vital Signs Last Recorded V/S: Last Vital Signs Temp 37.4 C 07/10/18 18:32 Pulse 83 07/10/18 18:32 Resp 20 07/10/18 18:32 BP 103/71 07/10/18 18:32 Pulse Ox 94 L 07/10/18 18:32 - Orders/Labs/Meds Orders: Active Orders 24 hr Category Date Time Status Bladder Scan [RC] ASDIRECTED Care 07/10/18 17:30 Active EKG Documentation Completion [RC] STAT Care 07/10/18 17:08 Active Oxygen Therapy [RC] ASDIRECTED Care 07/10/18 17:30 Active Oxygen Therapy [RC] PRN Care 07/10/18 17:08 Active Peripheral IV Care [RC] . DIRECTED Care 07/10/18 17:09 Active RT Aerosol Therapy [RC] ASDIRECTED Care 07/10/18 17:25 Active Chest 1V Frontal [CR] Stat Exams 07/10/18 16:57 Taken CULTURE BLOOD [BC] Stat Lab 07/10/18 17:45 Received CULTURE BLOOD [BC] Stat Lab 07/10/18 17:56 Received Blood Culture x2 Reflex Set [OM.PC] Stat Oth 07/10/18 17:08 Ordered Peripheral IV Insertion Adult [OM.PC] Stat Oth 07/10/18 17:08 Ordered Labs: Laboratory Tests 07/10/18 07/10/18 07/10/18 Range/Units 17:15 17:15 17:15 WBC 12.02 H (4.23-9.07) K/mm3 RBC 4.26 L (4.63-6.08) M/mm3 Hgb 12.6 L (13.7-17.5) gm/L Hct 39.5 L (40.1-51.0) % MCV 92.7 H (79.0-92.2) fl MCH 29.6 (25.7-32.2) pg MCHC 31.9 L (32.2-35.5) g/dl RDW Std Deviation 44.9 H (35.1-43.9) fL Plt Count 224 (163-337) K/mm3 MPV 11.1 (9.4-12.3) fl Neut % (Auto) 73.5 H (34.0-67.9) % Lymph % (Auto) 10.2 L (21.8-53.1) % [place] % (Auto) 14.4 H (5.3-12.2) % Eos % (Auto) 1.5 (0.8-7.0) Baso % (Auto) 0.2 (0.1-1.2) % Neut # (Auto) 8.83 H (1.78-5.38) K/mm3 Lymph # (Auto) 1.23 L (1.32-3.57) K/mm3 [place] # (Auto) 1.73 H (0.30-0.82) K/mm3 Eos # (Auto) 0.18 (0.04-0.54) K/mm3 Baso # (Auto) 0.02 (0.01-0.08) K/mm3 Manual Slide Review Normal smear ESR 79 H (0-15) mm/hr Sodium 139 (136-145) mEq/L Potassium 4.1 (3.5-5.1) mEq/L Chloride 101 (98-107) mEq/L Carbon Dioxide 27 (21-32) mEq/L Anion Gap 15.1 H (5-15) BUN 31 H (7-18) mg/dL Creatinine 1.8 H (0.7-1.3) mg/dL Est Cr Clr Drug Dosing 39.46 mL/min Estimated GFR (MDRD) 37 (>60) mL/min BUN/Creatinine Ratio 17.2 (14-18) Glucose 101 (83-115) mg/dL Lactic Acid (0.4-2.0) mmol/L Calcium 9.1 (8.5-10.1) mg/dL Magnesium (1.8-2.4) mg/dl Total Bilirubin 0.5 (0.2-1.0) mg/dL AST 32 (15-37) U/L ALT 45 (16-63) U/L Alkaline Phosphatase 51 (46-116) U/L Troponin I (0.00-0.056) ng/mL C-Reactive Protein (<1.0) mg/dL NT-Pro-B Natriuret Pep (0-450) pg/mL Total Protein 7.4 (6.4-8.2) g/dl Albumin 3.3 L (3.4-5.0) g/dl Globulin 4.1 gm/dL Albumin/Globulin Ratio 0.8 L (1-2) Urine Color (Yellow) Urine Appearance (Clear) Urine pH (5.0-8.0) Ur Specific [place] (1.005-1.030) Urine Protein (Negative) Urine Glucose (UA) (Negative) Urine Ketones (Negative) Urine Occult Blood (Negative) Urine Nitrite (Negative) Urine Bilirubin (Negative) Urine Urobilinogen (0.2-1.0) Ur Leukocyte Esterase (Negative) Urine RBC (0-5) /hpf Urine WBC (0-5) /hpf Ur Epithelial Cells (0-5) /hpf Urine Bacteria (FEW) /hpf Urine Mucus (FEW) /hpf 07/10/18 07/10/18 07/10/18 Range/Units 17:15 17:15 17:15 WBC (4.23-9.07) K/mm3 RBC (4.63-6.08) M/mm3 Hgb (13.7-17.5) gm/L Hct (40.1-51.0) % MCV (79.0-92.2) fl MCH (25.7-32.2) pg MCHC (32.2-35.5) g/dl RDW Std Deviation (35.1-43.9) fL Plt Count (163-337) K/mm3 MPV (9.4-12.3) fl Neut % (Auto) (34.0-67.9) % Lymph % (Auto) (21.8-53.1) % [place] % (Auto) (5.3-12.2) % Eos % (Auto) (0.8-7.0) Baso % (Auto) (0.1-1.2) % Neut # (Auto) (1.78-5.38) K/mm3 Lymph # (Auto) (1.32-3.57) K/mm3 [place] # (Auto) (0.30-0.82) K/mm3 Eos # (Auto) (0.04-0.54) K/mm3 Baso # (Auto) (0.01-0.08) K/mm3 Manual Slide Review ESR (0-15) mm/hr Sodium (136-145) mEq/L Potassium (3.5-5.1) mEq/L Chloride (98-107) mEq/L Carbon Dioxide (21-32) mEq/L Anion Gap (5-15) BUN (7-18) mg/dL Creatinine (0.7-1.3) mg/dL Est Cr Clr Drug Dosing mL/min Estimated GFR (MDRD) (>60) mL/min BUN/Creatinine Ratio (14-18) Glucose (83-115) mg/dL Lactic Acid 1.0 (0.4-2.0) mmol/L Calcium (8.5-10.1) mg/dL Magnesium 2.1 (1.8-2.4) mg/dl Total Bilirubin (0.2-1.0) mg/dL AST (15-37) U/L ALT (16-63) U/L Alkaline Phosphatase (46-116) U/L Troponin I < 0.017 (0.00-0.056) ng/mL C-Reactive Protein 13.2 H* (<1.0) mg/dL NT-Pro-B Natriuret Pep 8122 H (0-450) pg/mL Total Protein (6.4-8.2) g/dl Albumin (3.4-5.0) g/dl Globulin gm/dL Albumin/Globulin Ratio (1-2) Urine Color (Yellow) Urine Appearance (Clear) Urine pH (5.0-8.0) Ur Specific [place] (1.005-1.030) Urine Protein (Negative) Urine Glucose (UA) (Negative) Urine Ketones (Negative) Urine Occult Blood (Negative) Urine Nitrite (Negative) Urine Bilirubin (Negative) Urine Urobilinogen (0.2-1.0) Ur Leukocyte Esterase (Negative) Urine RBC (0-5) /hpf Urine WBC (0-5) /hpf Ur Epithelial Cells (0-5) /hpf Urine Bacteria (FEW) /hpf Urine Mucus (FEW) /hpf 07/10/18 Range/Units 18:20 WBC (4.23-9.07) K/mm3 RBC (4.63-6.08) M/mm3 Hgb (13.7-17.5) gm/L Hct (40.1-51.0) % MCV (79.0-92.2) fl MCH (25.7-32.2) pg MCHC (32.2-35.5) g/dl RDW Std Deviation (35.1-43.9) fL Plt Count (163-337) K/mm3 MPV (9.4-12.3) fl Neut % (Auto) (34.0-67.9) % Lymph % (Auto) (21.8-53.1) % [place] % (Auto) (5.3-12.2) % Eos % (Auto) (0.8-7.0) Baso % (Auto) (0.1-1.2) % Neut # (Auto) (1.78-5.38) K/mm3 Lymph # (Auto) (1.32-3.57) K/mm3 [place] # (Auto) (0.30-0.82) K/mm3 Eos # (Auto) (0.04-0.54) K/mm3 Baso # (Auto) (0.01-0.08) K/mm3 Manual Slide Review ESR (0-15) mm/hr Sodium (136-145) mEq/L Potassium (3.5-5.1) mEq/L Chloride (98-107) mEq/L Carbon Dioxide (21-32) mEq/L Anion Gap (5-15) BUN (7-18) mg/dL Creatinine (0.7-1.3) mg/dL Est Cr Clr Drug Dosing mL/min Estimated GFR (MDRD) (>60) mL/min BUN/Creatinine Ratio (14-18) Glucose (83-115) mg/dL Lactic Acid (0.4-2.0) mmol/L Calcium (8.5-10.1) mg/dL Magnesium (1.8-2.4) mg/dl Total Bilirubin (0.2-1.0) mg/dL AST (15-37) U/L ALT (16-63) U/L Alkaline Phosphatase (46-116) U/L Troponin I (0.00-0.056) ng/mL C-Reactive Protein (<1.0) mg/dL NT-Pro-B Natriuret Pep (0-450) pg/mL Total Protein (6.4-8.2) g/dl Albumin (3.4-5.0) g/dl Globulin gm/dL Albumin/Globulin Ratio (1-2) Urine Color Dark yellow (Yellow) Urine Appearance Clear (Clear) Urine pH 5.5 (5.0-8.0) Ur Specific [place] 1.025 (1.005-1.030) Urine Protein 1+ H (Negative) Urine Glucose (UA) Negative (Negative) Urine Ketones Negative (Negative) Urine Occult Blood Negative (Negative) Urine Nitrite Negative (Negative) Urine Bilirubin Negative (Negative) Urine Urobilinogen 0.2 (0.2-1.0) Ur Leukocyte Esterase Negative (Negative) Urine RBC Not seen (0-5) /hpf Urine WBC 0-5 (0-5) /hpf Ur Epithelial Cells 0-5 (0-5) /hpf Urine Bacteria Few (FEW) /hpf Urine Mucus Few (FEW) /hpf Meds: Medications Discontinued Medications Generic Name Dose Route Start Last Admin Trade Name Freq PRN Reason Stop Dose Admin Albuterol/Ipratropium 3 ml 07/10/18 17:24 07/10/18 17:34 Duoneb 3.0-0.5 Mg/3 Ml NEB 07/10/18 17:25 3 ml ONETIME ONE Administration Sodium Chloride 10 ml 07/10/18 17:09 07/10/18 17:13 Saline Flush FLUSH 10 ml ASDIRECTED PRN Administration Keep Vein Open - Radiology Interpretation Free Text/Narrative:: 77-year-old male presents the ED one day after discharge. He was admitted with a fever and chills and productive cough. He had recurrent spiked a fever of 101.6 at home this morning with rigors and chills. His daughters elected to bring him back to the hospital. He was discharged on Zithromax and has 2 pills left. Examination reveals diffuse wheezing throughout both lung jane due to COPD. Rhonchi upper anterior chest. He has only a low-grade fever at this time. He took Tylenol gram about an hour and half before coming to the ED. Sats are 92 % on room air. He'll be placed on oxygen at 2 L/m. Complete septic workup will be repeated including influenza screen. 11 at this time. He does have some dependent edema in his lower extremities and there may be a component of heart failure contributing to his dyspnea. However he clinically has a yet to be diagnosed infective process. - Re-Assessments/Exams Free Text/Narrative Re-Assessment/Exam: 07/10/18 18:46 chest x-ray reveals severe cardiomegaly with diffuse vascular congestion pattern. There is no pleural effusion however. No signs of pneumonia. Of note the influenza A screen came back positive. 07/10/18 18:48 White count is 12.02 with 73% neutrophils on auto differential. Hemoglobin is 12.6 with hematocrit of 39.5. Reticulocyte count is 224,000. Sedimentation rate is elevated at 79. Sodium 139 with potassium of 4.1. Chloride is 11 with a bicarbonate 27. And a gap is 15.1. BUN is 31 with a creatinine of 1.8. GFR is down to 37 i.e. stage III chronic kidney disease. Glucose is 101. Lactic acid is 1.0. Calcium is 9.1 magnesium is 2.1. Liver function normal troponin I is less than 0.017. C-reactive protein is 13.2. Total protein is 7.4 albumin fraction is 3.3. Patient was quite anxious to leave the hospital although his BNP is not yet back. Discharged home on in Tamiflu 75 mg twice a day for the next 5 days prophylaxis given to his 2 daughters and his . I also prescribed Tussionex cough syrup 5 mils every 12 hours as necessary for cough relief. I suspect his BNP is going to be significantly elevated and I will call him once this time he returns. His O2 sats are 92-93% on room air but he does not want to stay in the hospital in. He will continue Tylenol 650 mg every 64-6 hours necessary for fever relief. 07/10/18 20:20 BNP did come back elevated at 8122. Troponin I was less than 0.017. Urinalysis showed 1+ proteinuria but no signs of infection. Patient has been quite anxious to leave the hospital prior to getting his BNP back. He was therefore notified by nursing staff to increase his Lasix from 80 mg in the morning which she will continue and add 40 mg once daily in the afternoon about 2:00 for the next 5 days in an effort to relieve some of his congestion. This is contributed to his dyspnea and cough. He is to follow-up in the clinic with his personal care physician on Thursday or Thursday next week. 07/10/18 20:31 Departure - Departure Time of Disposition: 18:49 Disposition: Home, Self-Care 01 Condition: Fair Clinical Impression: Influenza A, Renal insufficiency Acute exacerbation of congestive heart failure Qualifiers: Heart failure type: unspecified Qualified Code(s): I50.9 - Heart failure, unspecified - Discharge Information *PRESCRIPTION DRUG MONITORING PROGRAM REVIEWED*: Not Applicable *COPY OF PRESCRIPTION DRUG MONITORING REPORT IN PATIENT TRU: Not Applicable Prescriptions: Hydrocodone/Chlorphen P-Stirex [Tussionex Pennkinetic Susp] 5 ml PO Q12H PRN # 60 ml PRN Reason: Cough relief Oseltamivir [Tamiflu] 75 mg PO BID #10 cap Instructions: Influenza, Adult, [id number], Influenza, Adult Referrals: Jewels Tadeo MD [Primary Care Provider] - Forms: ED Department Discharge Additional Instructions: Evaluation the emergent today in regards to recurrent fever and persistent severe paroxysmal cough. You're recently admitted to the hospital and treated for exacerbation of COPD. You still have a couple of tablets left of Zithromax-- please finish this up in case there is an underlying bacterial infection as well. Testing in the ED proved positive for the influenza A virus which would fit fit the pattern of your current illness. Suggest starting Tamiflu 75 mils grams twice daily for the next 5 days. May use cough syrup Tussionex 5 mils every 12 hours necessary for cough relief. Plan on taking it a good hour before bedtime as it takes an hour to work and should be taken with little food in the stomach. Expect marked improvement over the next 36-48 hours. Continue Tylenol 650 mg every 4-6 hours necessary for fever relief. Just follow-up with your personal care physician early next week such as Thursday or Thursday to make sure that you are getting better and heart failure is not getting any worse. - My Orders Last 24 Hours: My Active Orders 07/10/18 17:08 EKG Documentation Completion [RC] STAT Oxygen Therapy [RC] PRN Blood Culture x2 Reflex Set [OM.PC] Stat Peripheral IV Insertion Adult [OM.PC] Stat 07/10/18 17:09 Peripheral IV Care [RC] . DIRECTED 07/10/18 17:25 RT Aerosol Therapy [RC] ASDIRECTED 07/10/18 17:30 Bladder Scan [RC] ASDIRECTED Oxygen Therapy [RC] ASDIRECTED 07/10/18 17:45 CULTURE BLOOD [BC] Stat 07/10/18 17:56 CULTURE BLOOD [BC] Stat - Assessment/Plan Last 24 Hours: My Active Orders 07/10/18 17:08 EKG Documentation Completion [RC] STAT Oxygen Therapy [RC] PRN Blood Culture x2 Reflex Set [OM.PC] Stat Peripheral IV Insertion Adult [OM.PC] Stat 07/10/18 17:09 Peripheral IV Care [RC] . DIRECTED 07/10/18 17:25 RT Aerosol Therapy [RC] ASDIRECTED 07/10/18 17:30 Bladder Scan [RC] ASDIRECTED Oxygen Therapy [RC] ASDIRECTED 07/10/18 17:45 CULTURE BLOOD [BC] Stat 07/10/18 17:56 CULTURE BLOOD [BC] Stat
[2018-07-10] MEDS ORDERED: Albuterol/Ipratropium 3.0-0.5 MG/3 ML Neb Soln NEB ONE (17:24)
[2018-07-10 18:33] VITALS: BP 103/71
--- NOTE | 2018-07-11 14:15 | CR ---
Chest: Portable view of the chest was obtained. Comparison: Prior chest x-ray of 07/06/18. Incidental elevated left hemidiaphragm is seen which appears chronic. Heart size and mediastinum are within normal limits for portable technique. Sternotomy is noted as well as pacemaker. No acute parenchymal change is seen within either lung. Impression: 1. Nothing acute is seen on portable chest x-ray. Diagnostic code #2
== END 2018-07-10 19:20 | disposition home or self-care (01) ==
LOC: JD.ED 16:17 → UNDOADMOB 17:09 → JD.MS 17:09 → JD.ED 19:20
DX: I11.0 Hypertensive heart disease with heart failure (principal); I50.9 Heart failure, unspecified; J10.1 Influenza due to other identified influenza virus with other respiratory manifestations; N28.9 Disorder of kidney and ureter, unspecified; I25.10 Atherosclerotic heart disease of native coronary artery without angina pectoris; I48.91 Unspecified atrial fibrillation; E03.9 Hypothyroidism, unspecified; E66.9 Obesity, unspecified; Z95.1 Presence of aortocoronary bypass graft; Z87.01 Personal history of pneumonia (recurrent); Z79.82 Long term (current) use of aspirin; Z79.899 Other long term (current) drug therapy; Z88.8 Allergy status to other drugs, medicaments and biological substances; Z86.73 Personal history of transient ischemic attack (TIA), and cerebral infarction without residual deficits; Z98.49 Cataract extraction status, unspecified eye; Z90.49 Acquired absence of other specified parts of digestive tract
CPT/HCPCS: 36415; 51798; 71045; 71045-26; 80053; 81001; 83605; 83735; 83880; 84484; 85025; 85652; 86140; 87040; 87804; 93005; 93010; 94640; 99284; 99285-25; J7620-GY

== ENCOUNTER 2019-07-19 14:46 | Emergency (ER) | payer MEDICARE, OTHER ==
[2019-07-19 14:55] VITALS: BP 139/65; PULSE 73
[2019-07-19] MEDS ORDERED: Sodium Chloride 0.9% 1,000 ML IV ONE (16:25)
[2019-07-19] MEDS ORDERED: Sodium Chloride 0.9% 10 ML Syringe FLUSH PRN (16:25)
[2019-07-19] MEDS ORDERED: Ondansetron 4 MG/2 ML SDV IVPUSH ONE (16:25)
[2019-07-19] MEDS ORDERED: Loperamide 2 MG Cap PO ONE (16:26)
[2019-07-19] MEDS ORDERED: Loperamide 2 MG Cap ONE (16:46)
--- NOTE | 2019-07-19 17:06 | EDM.PDOC ---
ED HPI GENERAL MEDICAL PROBLEM - General Chief Complaint: Gastrointestinal Problem Stated Complaint: SOB Time Seen by Provider: 07/19/19 16:24 Source of Information: Reports: Patient, RN Notes Reviewed History Limitations: Reports: No Limitations - History of Present Illness INITIAL COMMENTS - FREE TEXT/NARRATIVE: Patient is a 78-year-old male who presents to the ED for the evaluation of ongoing nausea and diarrhea, patient states that since yesterday he has had pretty bad nausea and about 20 episodes of diarrhea. He notes the diarrhea is very watery. He is not having any vomiting, but is having severe retching like he needs to. Does not think he has had any bad food exposure. He states that he has not been on antibiotics for months. Patient notes that he had some mild abdominal cramping to start out with, but he is not having any chest pain, shortness of breath, he states that he felt mildly chilled but did not have any documented fever at home. - Related Data Allergies Allergy/AdvReac Type Severity Reaction Status Date / Time PRANEETH Inhibitors AdvReac Intermediate Other Verified 07/19/19 14:55 meperidine HCl [From Demerol] AdvReac Hypotension Verified 07/19/19 14:55 Home Meds: Home Meds Acetaminophen [Tylenol] 1 - 2 tab PO Q6HR PRN 07/07/18 [History] Albuterol Sulfate [Albuterol Sulfate Hfa] 2 puff INH TID 07/07/18 [History] Apixaban [Eliquis] 5 mg PO BID 07/07/18 [History] Aspirin [Tia Chewable Aspirin] 81 mg PO DAILY 07/07/18 [History] Calc/D3/Mag/Zn/[place] [Calcium 600 MG Plus Vit D] 1 tab PO DAILY [History] Cyactiv. 6 tab PO DAILY 07/07/18 [History] Escitalopram Oxalate 10 mg PO DAILY 07/07/18 [History] Fluticasone/Vilanterol [Breo Ellipta 100-25 MCG Inhalation Kit] 1 puff INH DAILY 07/07/18 [History] Furosemide [Lasix] 80 mg PO DAILY 07/07/18 [History] Lisinopril 5 mg PO DAILY 07/07/18 [History] Metoprolol Succinate [Toprol Xl] 100 mg PO BID 07/07/18 [History] Montelukast Sodium 10 mg PO BEDTIME 07/07/18 [History] Multivit-Min/Iron Fum/Folic AC [Xqdpc-Erjfbuo-Ryzweziu Tablet] 1 tab PO DAILY [History] [place]-3/DHA/Epa/Fish Oil [[place]-3 Fish Oil 1,000 MG Sfgl] 2,000 mg PO DAILY [History] Plasmaflo. 2 tab PO DAILY 07/07/18 [History] Rosuvastatin Calcium 20 mg PO DAILY 07/07/18 [History] Stem Cell. 6 tab PO DAILY 07/07/18 [History] Vitamin B Complex 1 tab PO BID 07/07/18 [History] amLODIPine [Norvasc] 5 mg PO DAILY 07/07/18 [History] guaiFENesin [Mucinex] 1,200 mg PO BID 07/07/18 [History] guanFACINE 1 mg PO BEDTIME 07/07/18 [History] Albuterol [Proventil] 2.5 mg INH TID #15 neb 07/09/18 [Rx] Azithromycin [Zithromax] 250 mg PO DAILY #4 tab 07/09/18 [Rx] Bacillus Coagulans [Probiotic] 1 each PO DAILY #20 capsule. 07/09/18 [Rx] Benzonatate [Tessalon Perle] 100 mg PO TID PRN #15 capsule 07/09/18 [Rx] Hydrocodone/Chlorphen P-Stirex [Tussionex Pennkinetic Susp] 5 ml PO Q12H PRN # 60 ml 07/10/18 [Rx] Oseltamivir [Tamiflu] 75 mg PO BID #10 cap 07/10/18 [Rx] Ondansetron [Zofran ODT] 4 mg PO Q8H PRN #12 tab.dis 07/19/19 [Rx] Past Medical History HEENT History: Reports: Impaired Vision Cardiovascular History: Reports: Afib, Bypass, CAD, Heart Failure, Heart Murmur , Hypertension, HI, Pacemaker, Stents Respiratory History: Reports: COPD, Pneumonia, Recurrent, Sleep Apnea, SOB Other Respiratory History: pt uses 2 pillows to sleep-has c-pap at home Musculoskeletal History: Reports: Arthritis, Back Pain, Chronic Neurological History: Reports: CVA, Neuropathy, Peripheral, Vertigo Psychiatric History: Reports: Anxiety, Depression, Panic Attack, Other (See Below) Other Psychiatric History: claustrophobic Endocrine/Metabolic History: Reports: Hypothyroidism, Obesity/BMI 30+ - Infectious Disease History Infectious Disease History: Reports: Chicken Pox, Shingles - Past Surgical History HEENT Surgical History: Reports: Cataract Surgery, Other (See Below) Other HEENT Surgeries/Procedures: Bilateral Cardiovascular Surgical History: Reports: Coronary Artery Bypass, Pacer GI Surgical History: Reports: Cholecystectomy, Hernia, Inguinal Neurological Surgical History: Reports: Lumbar Spine Social & Family History - Family History Family Medical History: Noncontributory - Tobacco Use Smoking Status *Q: Former Smoker Used Tobacco, but Quit: Yes Month/Year Tobacco Last Used: 20 years ago - Caffeine Use Caffeine Use: Reports: Coffee - Living Situation & Occupation Living situation: Reports: , with Spouse Occupation: Retired ED ROS GENERAL - Review of Systems Review Of Systems: See Below Constitutional: Reports: Chills. Denies: Fever Respiratory: Denies: Shortness of Breath Cardiovascular: Denies: Chest Pain GI/Abdominal: Reports: Abdominal Pain (generalized abdomen cramps), Diarrhea, Nausea. Denies: Black Stool, Bloody Stool, Vomiting Neurological: Denies: Dizziness ED EXAM, GI/ABD - Physical Exam Exam: See Below Exam Limited By: No Limitations General Appearance: Alert, WD/WN, No Apparent Distress Eyes: Bilateral: Normal Appearance, EOMI Ears: Normal External Exam Nose: Normal Inspection Throat/Mouth: Normal Inspection, Normal Lips, Normal Teeth, Normal Gums, Normal Oropharynx, Normal Voice, No Airway Compromise Head: Atraumatic, Normocephalic Neck: Normal Inspection Respiratory/Chest: No Respiratory Distress, Lungs Clear, Normal Breath Sounds, No Accessory Muscle Use, Chest Non-Tender Cardiovascular: Normal Peripheral Pulses, Regular Rate, Rhythm, No Edema, No Murmur GI/Abdominal Exam: Normal Bowel Sounds, Soft, Non-Tender, No Distention, No Mass Extremities: Normal Inspection, Normal Capillary Refill Neurological: Alert, Oriented, Normal Cognition, No Motor/Sensory Deficits Psychiatric: Normal Affect, Normal Mood Skin Exam: Warm, Dry, Intact, Normal Color, No Rash Course - Vital Signs Last Recorded V/S: Last Vital Signs Temp 98.4 F 07/19/19 14:53 Pulse 73 07/19/19 14:53 Resp 20 07/19/19 14:53 BP 139/65 07/19/19 14:53 Pulse Ox 95 07/19/19 14:53 - Orders/Labs/Meds Orders: Active Orders 24 hr Category Date Time Status Peripheral IV Care [RC] . DIRECTED Care 07/19/19 16:25 Active Sodium Chloride 0.9% [Saline Flush] Med 07/19/19 16:25 Active 10 ml FLUSH ASDIRECTED PRN Peripheral IV Insertion Adult [OM.PC] Stat Oth 07/19/19 16:25 Ordered Medication Orders Sodium Chloride (Saline Flush) 10 ml FLUSH ASDIRECTED PRN PRN Reason: Keep Vein Open Last Admin: 07/19/19 16:35 Dose: 10 ml Labs: Laboratory Tests 07/19/19 07/19/19 07/19/19 Range/Units 16:36 16:36 18:30 WBC 13.00 H (4.23-9.07) K/mm3 RBC 4.60 L (4.63-6.08) M/mm3 Hgb 14.3 D (13.7-17.5) gm/dl Hct 43.7 (40.1-51.0) % MCV 95.0 H (79.0-92.2) fl MCH 31.1 (25.7-32.2) pg MCHC 32.7 (32.2-35.5) g/dl RDW Std Deviation 48.2 H (35.1-43.9) fL Plt Count 224 (163-337) K/mm3 MPV 11.2 (9.4-12.3) fl Neut % (Auto) 85.2 H (34.0-67.9) % Lymph % (Auto) 5.6 L (21.8-53.1) % [place] % (Auto) 7.9 (5.3-12.2) % Eos % (Auto) 1.0 (0.8-7.0) Baso % (Auto) 0.1 (0.1-1.2) % Neut # (Auto) 11.07 H (1.78-5.38) K/mm3 Lymph # (Auto) 0.73 L (1.32-3.57) K/mm3 [place] # (Auto) 1.03 H (0.30-0.82) K/mm3 Eos # (Auto) 0.13 (0.04-0.54) K/mm3 Baso # (Auto) 0.01 (0.01-0.08) K/mm3 Manual Slide Review Abnormal smear Sodium 142 (136-145) mEq/L Potassium 3.8 (3.5-5.1) mEq/L Chloride 104 (98-107) mEq/L Carbon Dioxide 27 (21-32) mEq/L Anion Gap 14.8 (5-15) BUN 59 H D (7-18) mg/dL Creatinine 1.5 H (0.7-1.3) mg/dL Est Cr Clr Drug Dosing 46.61 mL/min Estimated GFR (MDRD) 45 (>60) mL/min BUN/Creatinine Ratio 39.3 H (14-18) Glucose 114 (83-115) mg/dL Calcium 8.7 (8.5-10.1) mg/dL Magnesium 2.1 (1.8-2.4) mg/dl Total Bilirubin 0.7 (0.2-1.0) mg/dL AST 15 (15-37) U/L ALT 30 (16-63) U/L Alkaline Phosphatase 69 (46-116) U/L Total Protein 7.4 (6.4-8.2) g/dl Albumin 3.5 (3.4-5.0) g/dl Globulin 3.9 gm/dL Albumin/Globulin Ratio 0.9 L (1-2) Urine Color Yellow (Yellow) Urine Appearance Clear (Clear) Urine pH 6.0 (5.0-8.0) Ur Specific [place] 1.020 (1.005-1.030) Urine Protein Negative (Negative) Urine Glucose (UA) Negative (Negative) Urine Ketones Negative (Negative) Urine Occult Blood Negative (Negative) Urine Nitrite Negative (Negative) Urine Bilirubin Negative (Negative) Urine Urobilinogen 0.2 (0.2-1.0) Ur Leukocyte Esterase Negative (Negative) Urine RBC 0-5 (0-5) /hpf Urine WBC Not seen (0-5) /hpf Ur Squamous Epith Cells Not seen (0-5) /hpf Urine Bacteria Rare (FEW) /hpf Urine Mucus Rare (FEW) /hpf Meds: Medications Generic Name Dose Route Start Last Admin Trade Name Freq PRN Reason Stop Dose Admin Sodium Chloride 10 ml 07/19/19 16:25 03/03/20 16:35 Saline Flush FLUSH 10 ml ASDIRECTED PRN Administration Keep Vein Open Discontinued Medications Generic Name Dose Route Start Last Admin Trade Name Regino PRN Reason Stop Dose Admin Sodium Chloride 1,000 mls @ 999 mls/hr 07/19/19 16:25 07/19/19 16:42 Normal Saline IV 07/19/19 17:25 999 mls/hr ONETIME ONE Administration Loperamide HCl 4 mg 07/19/19 16:26 07/19/19 16:43 Imodium PO 07/19/19 16:27 4 mg ONETIME ONE Administration Loperamide HCl Confirm 07/19/19 16:46 Imodium Administered 07/19/19 16:47 Dose 2 mg .ROUTE .STK-MED ONE Ondansetron HCl 4 mg 07/19/19 16:25 07/19/19 16:40 Zofran IVPUSH 07/19/19 16:26 4 mg ONETIME ONE Administration - Re-Assessments/Exams Free Text/Narrative Re-Assessment/Exam: 07/19/19 17:12 Patient is a 78-year-old male presents to the ED for evaluation of nausea and diarrhea. Did order some basic lab work, will give him some IV fluids, 1 dose of loperamide, and some Zofran for management. If he can give us some stool, we will do stool studies at today's visit. 07/19/19 18:55 Patient is feeling better after fluids and Zofran. Laboratory evaluation demonstrates no obvious abnormalities, white blood cell count is mildly elevated but I believe this to be a stress response due to the diarrhea. Will discharge home with general recommendations and have him follow-up with his primary care provider sometime this week for re-evaluation. Departure - Departure Time of Disposition: 18:56 Disposition: Home, Self-Care 01 Condition: Fair Clinical Impression: Nausea Diarrhea Qualifiers: Diarrhea type: unspecified type Qualified Code(s): R19.7 - Diarrhea, unspecified - Discharge Information *PRESCRIPTION DRUG MONITORING PROGRAM REVIEWED*: No *COPY OF PRESCRIPTION DRUG MONITORING REPORT IN PATIENT TRU: No Instructions: Food Choices to Help Relieve Diarrhea, Adult Forms: ED Department Discharge Additional Instructions: You have been evaluated in the ED for nausea/diarrhea. It is likely that this is caused from a viral gastroenteritis. Laboratory evaluation demonstrates no sign of any sort of acute bacterial infection, or electrolyte abnormalities. You have received IV fluid in the ED to help with the dehydration from the vomiting and diarrhea. Over the next 24-48 hours please try to limit diet to clear liquids and advance as tolerate to a bland diet to alleviate symptoms of nausea/diarrhea. Please use the Zofran every 8 hours as needed for nausea. You may hand picker some [id number] Imodium and take as directed for further diarrhea type stools. Recommend you follow-up with your primary care provider sometime by the end of this week or early next week for reevaluation of your symptoms and make sure that you are getting better as expected. Please return to the ED if your symptoms should change or worsen. Sepsis Event Note - Evaluation Sepsis Screening Result: No Definite Risk - Focused Exam Vital Signs: Vital Signs Temp Pulse Resp BP Pulse Ox 07/19/19 14:53 98.4 F 73 20 139/65 95 Date Exam was Performed: 07/19/19 Time Exam was Performed: 18:55 - My Orders Last 24 Hours: My Active Orders 07/19/19 16:25 Peripheral IV Care [RC] . DIRECTED Sodium Chloride 0.9% [Saline Flush] 10 ml FLUSH ASDIRECTED PRN Peripheral IV Insertion Adult [OM.PC] Stat - Assessment/Plan Last 24 Hours: My Active Orders 07/19/19 16:25 Peripheral IV Care [RC] . DIRECTED Sodium Chloride 0.9% [Saline Flush] 10 ml FLUSH ASDIRECTED PRN Peripheral IV Insertion Adult [OM.PC] Stat
== END 2019-07-19 19:23 | disposition home or self-care (01) ==
LOC: JD.ED 14:46
DX: R11.0 Nausea (principal); R19.7 Diarrhea, unspecified; I11.0 Hypertensive heart disease with heart failure; I50.9 Heart failure, unspecified; I25.10 Atherosclerotic heart disease of native coronary artery without angina pectoris; Z95.1 Presence of aortocoronary bypass graft; I48.91 Unspecified atrial fibrillation; J44.9 Chronic obstructive pulmonary disease, unspecified; M19.90 Unspecified osteoarthritis, unspecified site; F41.0 Panic disorder [episodic paroxysmal anxiety]; F32.9 Major depressive disorder, single episode, unspecified; E03.9 Hypothyroidism, unspecified; Z86.73 Personal history of transient ischemic attack (TIA), and cerebral infarction without residual deficits; E66.9 Obesity, unspecified; Z68.35 Body mass index [BMI] 35.0-35.9, adult; Z87.891 Personal history of nicotine dependence; Z88.8 Allergy status to other drugs, medicaments and biological substances; Z79.899 Other long term (current) drug therapy; Z79.01 Long term (current) use of anticoagulants; Z79.82 Long term (current) use of aspirin
CPT/HCPCS: 36415; 80053; 81001; 83735; 85025; 96374; 99284; A9270; J2405; J7030; 99283

== ENCOUNTER 2019-09-09 12:06 | Emergency (ER) | payer MEDICARE, OTHER ==
[2019-09-09 12:30] VITALS: BP 115/74; PULSE 70
--- NOTE | 2019-09-09 12:44 | EDM.PDOC ---
ED HPI GENERAL MEDICAL PROBLEM - General Chief Complaint: General Stated Complaint: FALL/RIB AND KNEE INJURY Time Seen by Provider: 09/09/19 12:23 Source of Information: Reports: Patient History Limitations: Reports: No Limitations - History of Present Illness INITIAL COMMENTS - FREE TEXT/NARRATIVE: The patient presents with right rib pain and left knee pain after a fall. He says he first fell about 6 days ago and again 2 nights ago. The first time he tripped and hurt his right ribs. He then tripped again 2 nights ago and hurt his left knee. He is on eliquis. He did hit his head the first time he fell. He denies any LOC. He may have a slight headache since then. He can walk with a walker. He has some shortness of breath but no cough or fever. He says last night his left leg had some spasms. Onset: Sudden Duration: Day(s): (6) Location: Reports: Chest, Lower Extremity, Left (knee) Quality: Reports: Sharp Severity: Moderate Improves with: Reports: None Worsens with: Reports: None Associated Symptoms: Reports: No Other Symptoms Left Knee Pain Score (Numeric/FACES): 8 Right Thoracic Pain Score (Numeric/FACES): 8 - Related Data Allergies Allergy/AdvReac Type Severity Reaction Status Date / Time PRANEETH Inhibitors AdvReac Intermediate Other Verified 09/09/19 12:38 meperidine HCl [From Demerol] AdvReac Hypotension Verified 09/09/19 12:38 Home Meds: Home Meds Acetaminophen [Tylenol] 1 - 2 tab PO Q6HR PRN 07/07/18 [History] Albuterol Sulfate [Albuterol Sulfate Hfa] 2 puff INH TID 07/07/18 [History] Apixaban [Eliquis] 5 mg PO BID 07/07/18 [History] Aspirin [Tia Chewable Aspirin] 81 mg PO DAILY 07/07/18 [History] Calc/D3/Mag/Zn/[place] [Calcium 600 MG Plus Vit D] 1 tab PO DAILY [History] Cyactiv. 6 tab PO DAILY 07/07/18 [History] Escitalopram Oxalate 10 mg PO DAILY 07/07/18 [History] Fluticasone/Vilanterol [Breo Ellipta 100-25 MCG Inhalation Kit] 1 puff INH DAILY 07/07/18 [History] Furosemide [Lasix] 80 mg PO ASDIRECTED 07/07/18 [History] Metoprolol Succinate [Toprol Xl] 100 mg PO BID 07/07/18 [History] Montelukast Sodium 10 mg PO BEDTIME 07/07/18 [History] Multivit-Min/Iron Fum/Folic AC [Vvbvl-Oqhqpen-Lqwujgxl Tablet] 1 tab PO DAILY [History] [place]-3/DHA/Epa/Fish Oil [[place]-3 Fish Oil 1,000 MG Sfgl] 2,000 mg PO DAILY [History] Plasmaflo. 2 tab PO DAILY 07/07/18 [History] Rosuvastatin Calcium 20 mg PO DAILY 07/07/18 [History] Stem Cell. 6 tab PO DAILY 07/07/18 [History] Vitamin B Complex 1 tab PO BID 07/07/18 [History] amLODIPine [Norvasc] 5 mg PO DAILY 07/07/18 [History] guaiFENesin [Mucinex] 1,200 mg PO BID 07/07/18 [History] guanFACINE 1 mg PO BEDTIME 07/07/18 [History] Albuterol [Proventil] 2.5 mg INH TID #15 neb 07/09/18 [Rx] Azithromycin [Zithromax] 250 mg PO DAILY #4 tab 07/09/18 [Rx] Bacillus Coagulans [Probiotic] 1 each PO DAILY #20 capsule. 07/09/18 [Rx] Benzonatate [Tessalon Perle] 100 mg PO TID PRN #15 capsule 07/09/18 [Rx] Hydrocodone/Chlorphen P-Stirex [Tussionex Pennkinetic Susp] 5 ml PO Q12H PRN # 60 ml 07/10/18 [Rx] Oseltamivir [Tamiflu] 75 mg PO BID #10 cap 07/10/18 [Rx] Ondansetron [Zofran ODT] 4 mg PO Q8H PRN #12 tab.dis 07/19/19 [Rx] Hydrocodone/Acetaminophen [Hydrocodone-Acetamin 5-325 mg] 1 - 2 each PO Q6HR PRN #20 tablet 09/09/19 [Rx] Losartan [Cozaar] 25 mg PO DAILY 09/09/19 [History] Triamcinolone Aceton/0.9% NaCl [Triamcinolone Acet 100 mg/2 ml] 50 mg NASBOTH DAILY 09/09/19 [History] methylPREDNISolone [Methylprednisolone] 4 mg PO ASDIRECTED 09/09/19 [History] Past Medical History HEENT History: Reports: Impaired Vision Cardiovascular History: Reports: Afib, Bypass, CAD, Heart Failure, Heart Murmur , Hypertension, MS, Pacemaker, Stents Other Cardiovascular History: dizziness Respiratory History: Reports: COPD, Pneumonia, Recurrent, Sleep Apnea, SOB Other Respiratory History: pt uses 2 pillows to sleep-has c-pap at home Genitourinary History: Reports: None Musculoskeletal History: Reports: Arthritis, Back Pain, Chronic Other Musculoskeletal History: low back surgery Neurological History: Reports: CVA, Neuropathy, Peripheral, Vertigo Psychiatric History: Reports: Anxiety, Depression, Panic Attack, Other (See Below) Other Psychiatric History: claustrophobic Endocrine/Metabolic History: Reports: Hypothyroidism, Obesity/BMI 30+ - Infectious Disease History Infectious Disease History: Reports: Chicken Pox, Shingles - Past Surgical History HEENT Surgical History: Reports: Cataract Surgery, Other (See Below) Other HEENT Surgeries/Procedures: Bilateral Cardiovascular Surgical History: Reports: Coronary Artery Bypass, Pacer GI Surgical History: Reports: Cholecystectomy, Hernia, Inguinal Male Surgical History: Reports: None Neurological Surgical History: Reports: Lumbar Spine Social & Family History - Family History Family Medical History: Noncontributory - Tobacco Use Smoking Status *Q: Former Smoker Used Tobacco, but Quit: Yes Month/Year Tobacco Last Used: 1979 - Caffeine Use Caffeine Use: Reports: None - Recreational Drug Use Recreational Drug Use: Yes - Living Situation & Occupation Living situation: Reports: , with Spouse Occupation: Retired ED ROS GENERAL - Review of Systems Review Of Systems: See Below Constitutional: Reports: No Symptoms HEENT: Reports: No Symptoms Respiratory: Reports: No Symptoms Cardiovascular: Reports: Chest Pain Endocrine: Reports: No Symptoms GI/Abdominal: Reports: No Symptoms : Reports: No Symptoms Musculoskeletal: Reports: Joint Pain (Knee) ED EXAM, GENERAL - Physical Exam Exam: See Below Exam Limited By: No Limitations General Appearance: Alert, No Apparent Distress Ears: Normal External Exam Nose: Normal Inspection Head: Atraumatic, Normocephalic Neck: Normal Inspection, Supple, Non-Tender Respiratory/Chest: No Respiratory Distress, Lungs Clear, Normal Breath Sounds, Other (Pain upon palpation to the right lateral chest) Cardiovascular: Regular Rate, Rhythm, No Edema, No Murmur GI/Abdominal: Soft, Non-Tender, No Organomegaly, No Mass Back Exam: Normal Inspection Extremities: Other (Pain upon palpation to the left medial knee with edema. Good sensation and pulses distally.) Course - Vital Signs Last Recorded V/S: Last Vital Signs Temp 97.5 F 09/09/19 12:23 Pulse 70 09/09/19 12:23 Resp 20 09/09/19 12:23 BP 115/74 09/09/19 12:23 Pulse Ox 95 09/09/19 12:23 - Orders/Labs/Meds Orders: Active Orders 24 hr Category Date Time Status Cardiac Monitoring [RC] . DIRECTED Care 09/09/19 12:28 Active Labs: Laboratory Tests 09/09/19 09/09/19 Range/Units 12:50 12:50 WBC 13.85 H (4.23-9.07) K/mm3 RBC 4.75 (4.63-6.08) M/mm3 Hgb 14.7 (13.7-17.5) gm/dl Hct 45.8 (40.1-51.0) % MCV 96.4 H (79.0-92.2) fl MCH 30.9 (25.7-32.2) pg MCHC 32.1 L (32.2-35.5) g/dl RDW Std Deviation 46.1 H (35.1-43.9) fL Plt Count 255 (163-337) K/mm3 MPV 10.8 (9.4-12.3) fl Neut % (Auto) 75.3 H (34.0-67.9) % Lymph % (Auto) 10.1 L (21.8-53.1) % [place] % (Auto) 12.6 H (5.3-12.2) % Eos % (Auto) 1.7 (0.8-7.0) Baso % (Auto) 0.1 (0.1-1.2) % Neut # (Auto) 10.43 H (1.78-5.38) K/mm3 Lymph # (Auto) 1.40 (1.32-3.57) K/mm3 [place] # (Auto) 1.74 H (0.30-0.82) K/mm3 Eos # (Auto) 0.23 (0.04-0.54) K/mm3 Baso # (Auto) 0.02 (0.01-0.08) K/mm3 Manual Slide Review Abnormal smear Sodium 141 (136-145) mEq/L Potassium 4.4 (3.5-5.1) mEq/L Chloride 101 (98-107) mEq/L Carbon Dioxide 28 (21-32) mEq/L Anion Gap 16.4 H (5-15) BUN 41 H (7-18) mg/dL Creatinine 1.7 H (0.7-1.3) mg/dL Est Cr Clr Drug Dosing 40.47 mL/min Estimated GFR (MDRD) 39 (>60) mL/min BUN/Creatinine Ratio 24.1 H (14-18) Glucose 120 H (83-115) mg/dL Calcium 9.5 (8.5-10.1) mg/dL Total Bilirubin 0.9 (0.2-1.0) mg/dL AST 15 (15-37) U/L ALT 26 (16-63) U/L Alkaline Phosphatase 82 (46-116) U/L Total Protein 8.0 (6.4-8.2) g/dl Albumin 3.8 (3.4-5.0) g/dl Globulin 4.2 gm/dL Albumin/Globulin Ratio 0.9 L (1-2) - Re-Assessments/Exams Free Text/Narrative Re-Assessment/Exam: 09/09/19 12:[address] of his head and chest, x-ray of his left knee and labs. 09/09/19 14:12 His WBC was slightly elevated at 13.85. His creatinine was elevated at 1.7. His anion gap was elevated at 16.4. His glucose is 120. The x-ray of his knee shows medial joint space narrowing. Nothing acute is appreciated on the left knee exam. CT of his head shows senescent change. No acute intracranial abnormality is appreciated. CT of his chest shows atelectasis within both lung bases. Other findings believed to be incidental. Nothing acute is appreciated on noncontrast CT study of the chest. I will give him an incentive spirometer and something for pain. Departure - Departure Time of Disposition: 14:20 Disposition: Home, Self-Care 01 Condition: Good Clinical Impression: Fall Qualifiers: Encounter type: initial encounter Qualified Code(s): W19.XXXA - Unspecified fall, initial encounter Chest wall contusion Qualifiers: Encounter type: initial encounter Laterality: right Qualified Code(s): S20.211A - Contusion of right front wall of thorax, initial encounter Contusion of left knee Qualifiers: Encounter type: initial encounter Qualified Code(s): S80.02XA - Contusion of left knee, initial encounter - Discharge Information *PRESCRIPTION DRUG MONITORING PROGRAM REVIEWED*: Not Applicable *COPY OF PRESCRIPTION DRUG MONITORING REPORT IN PATIENT TRU: Not Applicable Prescriptions: Hydrocodone/Acetaminophen [Hydrocodone-Acetamin 5-325 mg] 1 - 2 each PO Q6HR PRN #20 tablet PRN Reason: Pain Referrals: Jewels Tadeo MD [Primary Care Provider] - 1 Week Forms: ED Department Discharge Additional Instructions: Use the incentive spirometer 10 breaths every other hour while awake for 5 days. Take tylenol or motrin as needed for pain. If that does not help, try the hydrocodone. Please return if you are worse. Sepsis Event Note - Evaluation Sepsis Screening Result: No Definite Risk - Focused Exam Vital Signs: Vital Signs Temp Pulse Resp BP Pulse Ox 09/09/19 12:23 97.5 F 70 20 115/74 95 Date Exam was Performed: 09/09/19 Time Exam was Performed: 14:12 - My Orders Last 24 Hours: My Active Orders 09/09/19 12:28 Cardiac Monitoring [RC] . DIRECTED - Assessment/Plan Last 24 Hours: My Active Orders 09/09/19 12:28 Cardiac Monitoring [RC] . DIRECTED
--- NOTE | 2019-09-09 13:37 | CT ---
CT chest Technique: Multiple axial sections through the chest were obtained. Intravenous contrast was not utilized. Comparison: Prior chest CT study of 07/07/18. Findings: Thoracic aorta shows atherosclerotic calcification. No aneurysm is noted. Pleural calcification is seen. Heart is enlarged. Gynecomastia is seen more prominent on the right side. Mediastinum and hilar region show no adenopathy. Slight linear atelectasis believed to be present within both lung bases. No acute parenchymal change is appreciated. No pleural effusion or pneumothorax is appreciated. Artifact is noted from pacer. No definite acute rib fracture is appreciated. Previous sternotomy is noted. Scattered degenerative endplate spurring is noted within the spine. Impression: 1. Atelectasis within both lung bases. 2. Other findings as noted above believed to be incidental. 3. Nothing acute is appreciated on noncontrast CT study of the chest. Diagnostic code #2 This report was dictated in MDT
--- NOTE | 2019-09-09 13:37 | CT ---
Head CT Technique: Multiple axial sections through the brain were obtained. Intravenous contrast was not utilized. Comparison: Previous head CT study of 10/13/08. Findings: Ventricles along with basal cisterns and sulci over the convexities are mildly prominent. Minimal areas of diminished density is noted within the periventricular and subcortical white matter. No evidence of intracranial hemorrhage. No midline shift or mass-effect is seen. Visualized mastoid sinuses and paranasal sinuses show nothing acute. No acute calvarial abnormality is appreciated. Impression: 1. Senescent change as noted above. 2. No acute intracranial abnormality is appreciated. Diagnostic code #1 This report was dictated in MDT
--- NOTE | 2019-09-09 13:37 | CR ---
Left knee: 4 views left knee were obtained. Comparison: Previous left knee study of 07/03/14. Severe medial joint space narrowing is noted. This joint space narrowing has progressed from previous exam. Lateral joint space is preserved. No joint effusion is seen. No fracture or other bony abnormality is seen. Stent is partially visualized within the posterior thigh. Surgical clip is seen within the medial and upper lower extremity. Impression: 1. Medial joint space narrowing. 2. Other findings as noted above. 3. Nothing acute is appreciated on the left knee exam. Diagnostic code #2 This report was dictated in MDT
== END 2019-09-09 14:37 | disposition home or self-care (01) ==
LOC: JD.ED 12:06
DX: S20.211A Contusion of right front wall of thorax, initial encounter (principal); S80.02XA Contusion of left knee, initial encounter; I48.91 Unspecified atrial fibrillation; I11.0 Hypertensive heart disease with heart failure; I50.9 Heart failure, unspecified; J44.9 Chronic obstructive pulmonary disease, unspecified; E03.9 Hypothyroidism, unspecified; F41.9 Anxiety disorder, unspecified; F32.9 Major depressive disorder, single episode, unspecified; E66.9 Obesity, unspecified; M19.90 Unspecified osteoarthritis, unspecified site; I25.10 Atherosclerotic heart disease of native coronary artery without angina pectoris; Z68.35 Body mass index [BMI] 35.0-35.9, adult; Z88.5 Allergy status to narcotic agent; Z88.8 Allergy status to other drugs, medicaments and biological substances; G62.9 Polyneuropathy, unspecified; Z86.73 Personal history of transient ischemic attack (TIA), and cerebral infarction without residual deficits; Z79.01 Long term (current) use of anticoagulants; Z87.891 Personal history of nicotine dependence; W01.0XXA Fall on same level from slipping, tripping and stumbling without subsequent striking against object, initial encounter
CPT/HCPCS: 36415; 70450; 70450-26; 71250; 71250-26; 73564-26-LT; 73564-LT; 80053; 85025; 99283; 99284-25

== ENCOUNTER 2021-06-17 13:37 | Emergency (ER) | payer MEDICARE, OTHER ==
[2021-06-17 14:34] VITALS: BP 109/67; PULSE 76
== END 2021-06-17 16:50 | disposition home or self-care (01) ==
LOC: JD.ED 13:37
DX: U07.1 COVID-19 (principal); I11.0 Hypertensive heart disease with heart failure; I50.9 Heart failure, unspecified; J44.9 Chronic obstructive pulmonary disease, unspecified; I25.10 Atherosclerotic heart disease of native coronary artery without angina pectoris; E66.9 Obesity, unspecified; E03.9 Hypothyroidism, unspecified; Z68.32 Body mass index [BMI] 32.0-32.9, adult; Z86.16 Personal history of COVID-19; Z87.891 Personal history of nicotine dependence; Z79.899 Other long term (current) drug therapy; Z79.82 Long term (current) use of aspirin; Z88.8 Allergy status to other drugs, medicaments and biological substances
CPT/HCPCS: 36415; 71045; 71045-26; 80053; 85025; 85379; 86140; 99283; 99284-25

== ENCOUNTER 2021-06-22 12:45 | Emergency (ER) | payer MEDICARE, OTHER ==
[2021-06-22] MEDS ORDERED: Sodium Chloride 0.9% 10 ML Syringe FLUSH PRN (13:09)
[2021-06-22] MEDS ORDERED: Albuterol/Ipratropium 3.0-0.5 MG/3 ML Neb Soln NEB ONE (13:50)
[2021-06-22] MEDS ORDERED: Acetaminophen 325 MG Tab PO ONE (14:17)
[2021-06-22 15:25] VITALS: BP 126/68; PULSE 75
== END 2021-06-22 15:45 ==
LOC: JD.ED 12:45
DX: U07.1 COVID-19 (principal); J12.82 Pneumonia due to coronavirus disease 2019; R09.02 Hypoxemia; I48.91 Unspecified atrial fibrillation; I25.10 Atherosclerotic heart disease of native coronary artery without angina pectoris; I11.0 Hypertensive heart disease with heart failure; I50.9 Heart failure, unspecified; E03.9 Hypothyroidism, unspecified; J44.9 Chronic obstructive pulmonary disease, unspecified; I25.2 Old myocardial infarction; E66.9 Obesity, unspecified; Z68.30 Body mass index [BMI] 30.0-30.9, adult; Z88.5 Allergy status to narcotic agent; Z88.8 Allergy status to other drugs, medicaments and biological substances; Z79.01 Long term (current) use of anticoagulants; Z79.82 Long term (current) use of aspirin; Z79.899 Other long term (current) drug therapy; Z87.891 Personal history of nicotine dependence; Z95.1 Presence of aortocoronary bypass graft
CPT/HCPCS: 36415; 71045; 80053; 83605; 85025; 85379; 85610; 85730; 86140; 94640; 99285; A9270; J7620-GY

== ENCOUNTER 2022-08-15 18:05 | Emergency (ER) | payer MEDICARE, OTHER ==
[2022-08-15 19:10] VITALS: BP 144/69; PULSE 77
[2022-08-15] MEDS ORDERED: HYDROmorphone 1 MG/ML Syringe IM ONE (22:14)
== END 2022-08-15 23:10 | disposition home or self-care (01) ==
LOC: JD.ED 18:05
DX: M25.561 Pain in right knee (principal); M25.562 Pain in left knee; I48.91 Unspecified atrial fibrillation; I25.10 Atherosclerotic heart disease of native coronary artery without angina pectoris; I11.0 Hypertensive heart disease with heart failure; I50.9 Heart failure, unspecified; I25.2 Old myocardial infarction; J44.9 Chronic obstructive pulmonary disease, unspecified; M19.90 Unspecified osteoarthritis, unspecified site; E66.9 Obesity, unspecified; Z68.36 Body mass index [BMI] 36.0-36.9, adult; Z86.16 Personal history of COVID-19; Z88.8 Allergy status to other drugs, medicaments and biological substances; Z88.5 Allergy status to narcotic agent; Z79.82 Long term (current) use of aspirin; Z79.01 Long term (current) use of anticoagulants; Z79.899 Other long term (current) drug therapy
CPT/HCPCS: 36415; 80053; 83605; 84550; 85025; 87040; 96372; 99283; J1170

== ENCOUNTER 2022-09-06 10:09 | Emergency (ER) | payer MEDICARE, OTHER ==
[2022-09-06] MEDS ORDERED: Sodium Chloride 0.9% 10 ML Syringe FLUSH PRN (11:06)
[2022-09-06] MEDS ORDERED: Ondansetron 4 MG/2 ML SDV IVPUSH ONE (11:52)
[2022-09-06] MEDS ORDERED: Sodium Chloride 0.9% 1,000 ML IV STA (11:52)
[2022-09-06] MEDS ORDERED: HYDROmorphone 0.5 MG/0.5 ML Syringe IVPUSH ONE ×2 (11:52→13:02)
[2022-09-06] MEDS ORDERED: methylPREDNISolone Sodium Succinate 125 MG/2 ML SDV IVPUSH ONE (14:21)
[2022-09-06] MEDS ORDERED: Acetaminophen/oxyCODONE 325-5 MG Tab PO ONE (14:25)
[2022-09-06 17:23] VITALS: BP 124/63; PULSE 70
== END 2022-09-06 17:21 ==
LOC: JD.ED 10:09
DX: M10.9 Gout, unspecified (principal); I48.91 Unspecified atrial fibrillation; I25.10 Atherosclerotic heart disease of native coronary artery without angina pectoris; I11.0 Hypertensive heart disease with heart failure; I50.9 Heart failure, unspecified; I25.2 Old myocardial infarction; E66.9 Obesity, unspecified; Z68.35 Body mass index [BMI] 35.0-35.9, adult; Z86.73 Personal history of transient ischemic attack (TIA), and cerebral infarction without residual deficits; Z95.0 Presence of cardiac pacemaker; Z88.8 Allergy status to other drugs, medicaments and biological substances; Z88.5 Allergy status to narcotic agent; Z79.01 Long term (current) use of anticoagulants; Z79.82 Long term (current) use of aspirin; Z79.899 Other long term (current) drug therapy; Z86.16 Personal history of COVID-19
CPT/HCPCS: 36415; 71045; 80053; 81001; 83605; 85025; 86140; 87040; 96361; 96374; 96375; 96376; 99284; A9270; J1170; J2405; J2930; J3490; J7030

== ENCOUNTER 2022-10-20 17:41 | Inpatient (IN) | payer MEDICARE, OTHER ==
[2022-10-20] MEDS ORDERED: Sodium Chloride 0.9% 10 ML Syringe FLUSH PRN (18:33)
[2022-10-20 18:47] LABS: BASOPHILS ABSOLUTE AUTO 0.02 K/mm3 (0.01-0.08); BASOPHILS PERCENT AUTO 0.2 % (0.1-1.2); EOSINOPHILS ABSOLUTE AUTO 0.07 K/mm3 (0.04-0.54); EOSINOPHILS PERCENT AUTO 0.6 (0.8-7.0); HEMATOCRIT 39.4 % (40.1-51.0); HEMOGLOBIN 13.2 gm/dl (13.7-17.5); IMMATURE GRAN ABSOLUTE AUTO 0.03 K/mm3 (0.00-0.10); IMMATURE GRAN PERCENT AUTO 0.3 % (<=1.0); LYMPHOCYTES ABSOLUTE AUTO 0.78 K/mm3 (1.32-3.57); LYMPHOCYTES PERCENT AUTO 6.7 % (21.8-53.1); MEAN CORPUSCULAR HEMOGLOBIN 33.2 pg (25.7-32.2); MEAN CORPUSCULAR HGB CONC 33.5 g/dl (32.2-35.5); MEAN CORPUSCULAR VOLUME 99.2 fl (79.0-92.2); MEAN PLATELET VOLUME 11.1 fl (9.4-12.3); MONOCYTES ABSOLUTE AUTO 1.55 K/mm3 (0.30-0.82); MONOCYTES PERCENT AUTO 13.2 % (5.3-12.2); NEUTROPHILS ABSOLUTE AUTO 9.26 K/mm3 (1.78-5.38); PLATELET COUNT,PLT 233 K/mm3 (163-337); RED BLOOD CELL COUNT 3.97 M/mm3 (4.63-6.08); WHITE BLOOD CELL COUNT,WBC 11.71 K/mm3 (4.23-9.07)
[2022-10-20 19:04] LABS: INFLUENZA A NAA NEGATIVE (NEGATIVE); RESPIRATORY SYNCYTIAL VIR NAA NEGATIVE (NEGATIVE)
[2022-10-20 19:13] LABS: INR 1.09; PROTHROMBIN TIME 11.6 SECONDS (9.7-12.0)
[2022-10-20 19:14] LABS: PTT,PARTIAL THROMBOPLSTIN TIME 29.8 SECONDS (21.7-31.4)
[2022-10-20 19:20] LABS: CORONAVIRUS COVID-19 NAA POSITIVE (NEGATIVE)
[2022-10-20 19:23] LABS: ALANINE AMINOTRANSFERASE,ALT 26 U/L (16-63); ALBUMIN 3.4 g/dl (3.4-5.0); ALKALINE PHOSPHATASE 83 U/L (46-116); ANION GAP 10.6 (5-15); ASPARTATE AMNIOTRANSFERASE,AST 19 U/L (15-37); BILIRUBIN TOTAL 0.8 mg/dL (0.2-1.0); BLOOD UREA NITROGEN,BUN 34 mg/dL (7-18); BUN/CREATININE RATIO 22.7 (14-18); CALCIUM 8.8 mg/dL (8.5-10.1); CARBON DIOXIDE,CO2 33 mEq/L (21-32); CHLORIDE,CL 99 mEq/L (98-107); CREATININE 1.5 mg/dL (0.7-1.3); ESTIMATED GFR 46 mL/min (>60); GLUCOSE RANDOM 105 mg/dL (70-99); POTASSIUM,K 3.6 mEq/L (3.5-5.1); PROTEIN TOTAL,TP 6.9 g/dl (6.4-8.2); SODIUM,NA 139 mEq/L (136-145)
[2022-10-20 19:24] LABS: SLIDE REVIEW ABNORMAL SMEAR
[2022-10-20] MEDS ORDERED: Ketorolac 15 MG/ML SDV IVPUSH ONE (19:58)
[2022-10-20] MEDS ORDERED: Dexamethasone 4 MG/ML SDV IVPUSH ONE (20:12)
[2022-10-20] MEDS ORDERED: REMDESIVIR 200 MG in Sodium Chloride 0.9% 250 ML IV ONE (20:12)
[2022-10-20] MEDS ORDERED: Acetaminophen 325 MG Tab PO PRN (21:16)
[2022-10-20] MEDS ORDERED: Polyethylene Glycol 3350 Powder 17 GM Packet PO PRN (21:16)
[2022-10-20] MEDS ORDERED: Albuterol/Ipratropium 3.0-0.5 MG/3 ML Neb Soln NEB PRN (21:16)
[2022-10-20] MEDS ORDERED: Acetaminophen 650 MG Supp RECTAL PRN (21:16)
[2022-10-20] MEDS ORDERED: oxyCODONE 5 MG Tab PO PRN (21:16)
[2022-10-20] MEDS ORDERED: Ondansetron 4 MG/2 ML SDV IV PRN (21:16)
[2022-10-20] MEDS ORDERED: Ondansetron 4 MG Tab.DIS PO PRN (21:16)
[2022-10-20] MEDS ORDERED: Docusate Sodium 100 MG Cap PO PRN (21:16)
[2022-10-20 22:39] LABS: BASE EXCESS ARTERIAL 4.4 (-2-2.0); BICARBONATE,ARTERIAL 28.5 meq/L (22.0-26.0); O2 SATURATION ARTERIAL 95.9 % (96.0-97.0); PCO2 ARTERIAL 42.4 mmHg (35.0-45.0)
[2022-10-20] MEDS: Apixaban 2.5 MG Tab PO SCH (23:21)
[2022-10-20] MEDS: Melatonin 3 MG Tab PO PRN (23:21)
[2022-10-21 06:28] LABS: BASOPHILS ABSOLUTE AUTO 0.01 K/mm3 (0.01-0.08); BASOPHILS PERCENT AUTO 0.1 % (0.1-1.2); EOSINOPHILS PERCENT AUTO 0 (0.8-7.0); HEMATOCRIT 37.8 % (40.1-51.0); HEMOGLOBIN 12.1 gm/dl (13.7-17.5); IMMATURE GRAN ABSOLUTE AUTO 0.04 K/mm3 (0.00-0.10); IMMATURE GRAN PERCENT AUTO 0.5 % (<=1.0); LYMPHOCYTES ABSOLUTE AUTO 0.72 K/mm3 (1.32-3.57); LYMPHOCYTES PERCENT AUTO 8.4 % (21.8-53.1); MEAN CORPUSCULAR HEMOGLOBIN 32.3 pg (25.7-32.2); MEAN CORPUSCULAR VOLUME 100.8 fl (79.0-92.2); MEAN PLATELET VOLUME 11.4 fl (9.4-12.3); MONOCYTES ABSOLUTE AUTO 0.46 K/mm3 (0.30-0.82); MONOCYTES PERCENT AUTO 5.3 % (5.3-12.2); NEUTROPHILS ABSOLUTE AUTO 7.39 K/mm3 (1.78-5.38); NEUTROPHILS PERCENT AUTO 85.7 % (34.0-67.9); PLATELET COUNT,PLT 204 K/mm3 (163-337); RED BLOOD CELL COUNT 3.75 M/mm3 (4.63-6.08); WHITE BLOOD CELL COUNT,WBC 8.62 K/mm3 (4.23-9.07)
[2022-10-21 06:43] LABS: ANION GAP 11.7 (5-15); BUN/CREATININE RATIO 22.9 (14-18); CALCIUM 8.8 mg/dL (8.5-10.1); CREATININE 1.4 mg/dL (0.7-1.3); EST CRCL DRUG DOSING (CG) 38.69 mL/min; POTASSIUM,K 3.7 mEq/L (3.5-5.1)
[2022-10-21 07:40] LABS: A/G RATIO 0.9 (1-2); ALBUMIN 2.9 g/dl (3.4-5.0); BILIRUBIN DIRECT 0.3 mg/dl (0.0-0.2); BILIRUBIN INDIRECT 0.3; BILIRUBIN TOTAL 0.6 mg/dL (0.2-1.0); PROTEIN TOTAL,TP 6.3 g/dl (6.4-8.2)
[2022-10-21] MEDS: Apixaban 2.5 MG Tab PO SCH ×2 (08:15→20:11)
[2022-10-21] MEDS ORDERED: Dexamethasone 4 MG Tab PO SCH (09:00)
[2022-10-21] MEDS ORDERED: Bisacodyl 5 MG Tab PO PRN (10:33)
[2022-10-21] MEDS: Colchicine 0.6 MG Tab PO SCH (11:17)
[2022-10-21] MEDS: Aspirin 81 MG Tab.EC PO SCH (11:17)
[2022-10-21] MEDS: Allopurinol 300 MG Tab PO SCH (11:17)
[2022-10-21] MEDS: DULoxetine 30 MG Cap PO SCH (11:17)
[2022-10-21] MEDS: Bumetanide 1 MG Tab PO SCH ×2 (12:04→20:10)
[2022-10-21] MEDS: Metoprolol Succinate 50 MG Tab.ER PO SCH ×2 (12:05→20:11)
[2022-10-21] MEDS: Gabapentin 300 MG Cap PO SCH ×2 (16:15→20:11)
[2022-10-21] MEDS: REMDESIVIR 100 MG in Sodium Chloride 0.9% 250 ML IV SCH (20:09)
[2022-10-21] MEDS: Melatonin 3 MG Tab PO PRN (20:10)
[2022-10-21] MEDS: traZODone 50 MG Tab PO SCH (20:10)
[2022-10-21] MEDS: Montelukast 10 MG Tab PO SCH (20:10)
[2022-10-21] MEDS: guaiFENesin 600 MG Tab.ER PO SCH (20:11)
[2022-10-21] MEDS ORDERED: Non-Formulary Medication 1 Each (Melatonin [Melatonin] 10 MG Tablet) PO SCH (21:00)
[2022-10-21] MEDS ORDERED: REMDESIVIR 100 MG in Sodium Chloride 0.9% 100 ML IV SCH (21:30)
[2022-10-22 06:35] LABS: EOSINOPHILS PERCENT AUTO 0 (0.8-7.0); HEMATOCRIT 38.7 % (40.1-51.0); HEMOGLOBIN 12.4 gm/dl (13.7-17.5); IMMATURE GRAN ABSOLUTE AUTO 0.02 K/mm3 (0.00-0.10); IMMATURE GRAN PERCENT AUTO 0.2 % (<=1.0); LYMPHOCYTES ABSOLUTE AUTO 1.05 K/mm3 (1.32-3.57); LYMPHOCYTES PERCENT AUTO 9.5 % (21.8-53.1); MEAN CORPUSCULAR VOLUME 99.7 fl (79.0-92.2); MEAN PLATELET VOLUME 11.7 fl (9.4-12.3); MONOCYTES ABSOLUTE AUTO 0.88 K/mm3 (0.30-0.82); MONOCYTES PERCENT AUTO 7.9 % (5.3-12.2); NEUTROPHILS ABSOLUTE AUTO 9.13 K/mm3 (1.78-5.38); NEUTROPHILS PERCENT AUTO 82.4 % (34.0-67.9); PLATELET COUNT,PLT 230 K/mm3 (163-337); RED BLOOD CELL COUNT 3.88 M/mm3 (4.63-6.08); WHITE BLOOD CELL COUNT,WBC 11.08 K/mm3 (4.23-9.07)
[2022-10-22 07:00] LABS: ANION GAP 8.6 (5-15); BUN/CREATININE RATIO 31.4 (14-18); CALCIUM 8.9 mg/dL (8.5-10.1); CREATININE 1.4 mg/dL (0.7-1.3); EST CRCL DRUG DOSING (CG) 38.69 mL/min; POTASSIUM,K 3.6 mEq/L (3.5-5.1)
[2022-10-22 07:10] LABS: A/G RATIO 0.9 (1-2); BILIRUBIN DIRECT 0.2 mg/dl (0.0-0.2); BILIRUBIN INDIRECT 0.3; BILIRUBIN TOTAL 0.5 mg/dL (0.2-1.0); PROTEIN TOTAL,TP 6.5 g/dl (6.4-8.2)
[2022-10-22] MEDS: Bumetanide 1 MG Tab PO SCH ×2 (08:18→20:49)
[2022-10-22] MEDS: Apixaban 2.5 MG Tab PO SCH ×2 (08:18→20:50)
[2022-10-22] MEDS: guaiFENesin 600 MG Tab.ER PO SCH ×2 (08:18→20:49)
[2022-10-22] MEDS: DULoxetine 30 MG Cap PO SCH (08:18)
[2022-10-22] MEDS: Aspirin 81 MG Tab.EC PO SCH (08:18)
[2022-10-22] MEDS: Colchicine 0.6 MG Tab PO SCH (08:18)
[2022-10-22] MEDS: Metoprolol Succinate 50 MG Tab.ER PO SCH ×2 (08:18→20:49)
[2022-10-22] MEDS: Gabapentin 300 MG Cap PO SCH ×3 (08:19→21:05)
[2022-10-22] MEDS: Dexamethasone 6 MG TABLET PO SCH (08:19)
[2022-10-22] MEDS: Sennosides/Docusate Sodium 50-8.6 MG Tab PO SCH (08:19)
[2022-10-22] MEDS: Allopurinol 300 MG Tab PO SCH (08:19)
[2022-10-22] MEDS: Sodium Chloride 0.9% 1,000 ML IV SCH (15:12)
[2022-10-22] MEDS: REMDESIVIR 100 MG in Sodium Chloride 0.9% 250 ML IV SCH (20:48)
[2022-10-22] MEDS: Montelukast 10 MG Tab PO SCH (20:49)
[2022-10-22] MEDS: traZODone 50 MG Tab PO SCH (20:50)
[2022-10-23] MEDS: Sodium Chloride 0.9% 1,000 ML IV SCH (04:14)
[2022-10-23 08:09] LABS: BASOPHILS ABSOLUTE AUTO 0.01 K/mm3 (0.01-0.08); BASOPHILS PERCENT AUTO 0.1 % (0.1-1.2); EOSINOPHILS PERCENT AUTO 0 (0.8-7.0); HEMATOCRIT 46.2 % (40.1-51.0); HEMOGLOBIN 14.7 gm/dl (13.7-17.5); IMMATURE GRAN ABSOLUTE AUTO 0.03 K/mm3 (0.00-0.10); IMMATURE GRAN PERCENT AUTO 0.3 % (<=1.0); LYMPHOCYTES ABSOLUTE AUTO 1.29 K/mm3 (1.32-3.57); LYMPHOCYTES PERCENT AUTO 11.2 % (21.8-53.1); MEAN CORPUSCULAR HEMOGLOBIN 31.5 pg (25.7-32.2); MEAN CORPUSCULAR HGB CONC 31.8 g/dl (32.2-35.5); MEAN CORPUSCULAR VOLUME 99.1 fl (79.0-92.2); MEAN PLATELET VOLUME 11.6 fl (9.4-12.3); MONOCYTES ABSOLUTE AUTO 0.65 K/mm3 (0.30-0.82); MONOCYTES PERCENT AUTO 5.6 % (5.3-12.2); NEUTROPHILS ABSOLUTE AUTO 9.53 K/mm3 (1.78-5.38); NEUTROPHILS PERCENT AUTO 82.8 % (34.0-67.9); PLATELET COUNT,PLT 244 K/mm3 (163-337); RED BLOOD CELL COUNT 4.66 M/mm3 (4.63-6.08); WHITE BLOOD CELL COUNT,WBC 11.51 K/mm3 (4.23-9.07)
[2022-10-23] MEDS: DULoxetine 30 MG Cap PO SCH (08:10)
[2022-10-23] MEDS: Colchicine 0.6 MG Tab PO SCH (08:10)
[2022-10-23] MEDS: guaiFENesin 600 MG Tab.ER PO SCH (08:11)
[2022-10-23] MEDS: Allopurinol 300 MG Tab PO SCH (08:11)
[2022-10-23] MEDS: Gabapentin 300 MG Cap PO SCH ×2 (08:11→15:13)
[2022-10-23] MEDS: Apixaban 2.5 MG Tab PO SCH (08:11)
[2022-10-23] MEDS: Dexamethasone 6 MG TABLET PO SCH (08:11)
[2022-10-23] MEDS: Sennosides/Docusate Sodium 50-8.6 MG Tab PO SCH (08:11)
[2022-10-23] MEDS: Bumetanide 1 MG Tab PO SCH (08:11)
[2022-10-23] MEDS: Aspirin 81 MG Tab.EC PO SCH (08:11)
[2022-10-23] MEDS: Metoprolol Succinate 50 MG Tab.ER PO SCH (08:12)
[2022-10-23 08:19] VITALS: PULSE 70
[2022-10-23 08:35] LABS: ANION GAP 9.7 (5-15); CALCIUM 8.9 mg/dL (8.5-10.1); CREATININE 1.2 mg/dL (0.7-1.3); EST CRCL DRUG DOSING (CG) 45.14 mL/min; POTASSIUM,K 3.7 mEq/L (3.5-5.1)
[2022-10-23 08:40] LABS: A/G RATIO 0.9 (1-2); ALBUMIN 3.2 g/dl (3.4-5.0); BILIRUBIN DIRECT 0.2 mg/dl (0.0-0.2); BILIRUBIN INDIRECT 0.3 mg/dL (0.1-1.0); BILIRUBIN TOTAL 0.5 mg/dL (0.2-1.0); PROTEIN TOTAL,TP 6.8 g/dl (6.4-8.2)
[2022-10-23 12:15] VITALS: BP 158/78
== END 2022-10-23 15:40 | disposition home or self-care (01) | DRG 177 ==
LOC: JD.ED 17:41 → JD.MS 20:46
PROVIDERS: ADMIT Hospitalist; ATTEND Hospitalist
PROC: 8E0ZXY6 Isolation (ICD-10-PCS; principal; 2022-10-20)
PROC: XW033E5 Introduction of Remdesivir Anti-infective into Peripheral Vein, Percutaneous Approach, New Technology Group 5 (ICD-10-PCS; 2022-10-20)
PROC: 3E0DX3Z Introduction of Anti-inflammatory into Mouth and Pharynx, External Approach (ICD-10-PCS; 2022-10-20)
DX: U07.1 COVID-19 (principal); R09.02 Hypoxemia; I11.0 Hypertensive heart disease with heart failure; I50.9 Heart failure, unspecified; J12.82 Pneumonia due to coronavirus disease 2019; J96.01 Acute respiratory failure with hypoxia; N17.9 Acute kidney failure, unspecified; I25.10 Atherosclerotic heart disease of native coronary artery without angina pectoris; I10 Essential (primary) hypertension; Z79.82 Long term (current) use of aspirin; Z79.899 Other long term (current) drug therapy; I48.91 Unspecified atrial fibrillation; J44.9 Chronic obstructive pulmonary disease, unspecified; E66.9 Obesity, unspecified; F32.A Depression, unspecified; F41.9 Anxiety disorder, unspecified; G62.9 Polyneuropathy, unspecified; E03.9 Hypothyroidism, unspecified; Z68.39 Body mass index [BMI] 39.0-39.9, adult; Z79.890 Hormone replacement therapy; Z86.73 Personal history of transient ischemic attack (TIA), and cerebral infarction without residual deficits; Z86.16 Personal history of COVID-19; Z98.42 Cataract extraction status, left eye; Z95.1 Presence of aortocoronary bypass graft; Z79.01 Long term (current) use of anticoagulants; Z95.5 Presence of coronary angioplasty implant and graft; Z95.0 Presence of cardiac pacemaker; Z98.41 Cataract extraction status, right eye; Z98.890 Other specified postprocedural states
CPT/HCPCS: 0241U; 36415; 36600; 71045; 80048; 80053; 80076; 82803; 83605; 85025; 85610; 85730; 86140; 87040; 94762; 99222; 99232; 99239; 99285; A9270-GY; J0248; J1100; J1885; J3490; J7030; J7050; J8540

== ENCOUNTER 2024-02-27 17:55 | Emergency (ER) | payer MEDICARE, OTHER ==
[2024-02-27] MEDS ORDERED: Sodium Chloride 0.9% 10 ML Syringe FLUSH PRN (18:02)
[2024-02-27 18:27] LABS: BASOPHILS PERCENT AUTO 0.3 % (0.0-1.0); EOSINOPHILS ABSOLUTE AUTO 0.2 K/mm3 (0.0-0.4); EOSINOPHILS PERCENT AUTO 2.1 % (0.0-6.0); HEMATOCRIT 39.9 % (42.0-52.0); HEMOGLOBIN 13.1 gm/dl (14.0-18.0); IMMATURE GRAN ABSOLUTE AUTO 0.04 K/mm3 (0.00-0.05); IMMATURE GRAN PERCENT AUTO 0.4 % (0.0-0.4); LYMPHOCYTES ABSOLUTE AUTO 1.7 K/mm3 (1.0-4.8); LYMPHOCYTES PERCENT AUTO 17.9 % (24.0-44.0); MEAN CORPUSCULAR HEMOGLOBIN 34.6 pg (28.0-32.0); MEAN CORPUSCULAR HGB CONC 32.8 g/dl (32.0-36.0); MEAN CORPUSCULAR VOLUME 105.3 fl (83.0-99.0); MEAN PLATELET VOLUME 11.4 fl (9.4-12.4); MONOCYTES ABSOLUTE AUTO 1.3 K/mm3 (0.0-0.8); MONOCYTES PERCENT AUTO 13.5 % (0.0-8.0); NEUTROPHILS ABSOLUTE AUTO 6.3 K/mm3 (1.8-7.7); NEUTROPHILS PERCENT AUTO 65.8 % (41.0-71.0); PLATELET COUNT,PLT 210 K/mm3 (150-400); RED BLOOD CELL COUNT 3.79 M/mm3 (4.52-5.90); WHITE BLOOD CELL COUNT,WBC 9.63 K/mm3 (3.9-11.3)
[2024-02-27 18:54] LABS: A/G RATIO 1.3 (1-2); ALANINE AMINOTRANSFERASE,ALT 24 U/L (16-63); ALBUMIN 3.8 g/dl (3.4-5.0); ALKALINE PHOSPHATASE 88 U/L (46-116); ANION GAP 10.9 (5-15); ASPARTATE AMNIOTRANSFERASE,AST 17 U/L (15-37); BILIRUBIN TOTAL 0.7 mg/dL (0.2-1.0); BLOOD UREA NITROGEN,BUN 38 mg/dL (7-18); BUN/CREATININE RATIO 23.8 (14-18); CALCIUM 8.7 mg/dL (8.5-10.1); CARBON DIOXIDE,CO2 34 mEq/L (21-32); CHLORIDE,CL 102 mEq/L (98-107); CREATININE 1.6 mg/dL (0.7-1.3); ESTIMATED GFR 43 mL/min (>60); GLUCOSE RANDOM 95 mg/dL (70-99); MAGNESIUM 1.8 mg/dL (1.8-2.4); POTASSIUM,K 3.9 mEq/L (3.5-5.1); PROTEIN TOTAL,TP 6.8 g/dl (6.4-8.2); SODIUM,NA 143 mEq/L (136-145); TROPONIN I HIGH SENSITIVITY 18 pg/mL (<=76)
[2024-02-27] MEDS: Diphtheria,Pertussis(Acell),Tetanus Vaccine 0.5 ML Syringe IM ONE (21:52)
[2024-02-27] MEDS: Acetaminophen/oxyCODONE 325-5 MG Tab PO ONE (22:07)
[2024-02-27] MEDS: Ondansetron 4 MG Tab.DIS PO ONE (22:07)
[2024-02-27 23:28] VITALS: BP 105/71; PULSE 72
== END 2024-02-27 22:50 | disposition home or self-care (01) ==
LOC: JD.ED 17:55
DX: S24.109A Unspecified injury at unspecified level of thoracic spinal cord, initial encounter (principal); R53.1 Weakness; E03.9 Hypothyroidism, unspecified; E66.9 Obesity, unspecified; I48.91 Unspecified atrial fibrillation; I25.10 Atherosclerotic heart disease of native coronary artery without angina pectoris; I11.0 Hypertensive heart disease with heart failure; I50.9 Heart failure, unspecified; I25.2 Old myocardial infarction; J44.9 Chronic obstructive pulmonary disease, unspecified; M19.90 Unspecified osteoarthritis, unspecified site; Z86.16 Personal history of COVID-19; Z86.73 Personal history of transient ischemic attack (TIA), and cerebral infarction without residual deficits; Z95.0 Presence of cardiac pacemaker; Z95.5 Presence of coronary angioplasty implant and graft; Z79.01 Long term (current) use of anticoagulants; Z79.82 Long term (current) use of aspirin; Z79.899 Other long term (current) drug therapy; Z88.8 Allergy status to other drugs, medicaments and biological substances; W10.1XXA Fall (on)(from) sidewalk curb, initial encounter
CPT/HCPCS: 36415; 70450; 70450-26; 71045; 71045-26; 71250; 71250-26; 72125; 72125-26; 72128; 72128-26; 72170; 72170-26; 73060-26-LT; 73060-26-RT; 73060-LT; 73060-RT; 80053; 83735; 84484; 85025; 90471; 90715; 93005; 93010; 99283; 99285-25; A9270-GY

== ENCOUNTER 2024-03-19 20:22 | Emergency (ER) | payer MEDICARE, OTHER ==
[2024-03-19] MEDS ORDERED: Sodium Chloride 0.9% 10 ML Syringe FLUSH PRN (20:58)
[2024-03-19] MEDS: Albuterol/Ipratropium 3.0-0.5 MG/3 ML Neb Soln NEB ONE (21:03)
[2024-03-19 21:11] LABS: BASOPHILS PERCENT AUTO 0.2 % (0.0-1.0); EOSINOPHILS PERCENT AUTO 0.2 % (0.0-6.0); HEMATOCRIT 36.2 % (42.0-52.0); HEMOGLOBIN 12.1 gm/dl (14.0-18.0); IMMATURE GRAN ABSOLUTE AUTO 0.06 K/mm3 (0.00-0.05); IMMATURE GRAN PERCENT AUTO 0.6 % (0.0-0.4); LYMPHOCYTES ABSOLUTE AUTO 1.4 K/mm3 (1.0-4.8); LYMPHOCYTES PERCENT AUTO 12.8 % (24.0-44.0); MEAN CORPUSCULAR HEMOGLOBIN 34.2 pg (28.0-32.0); MEAN CORPUSCULAR HGB CONC 33.4 g/dl (32.0-36.0); MEAN CORPUSCULAR VOLUME 102.3 fl (83.0-99.0); MONOCYTES ABSOLUTE AUTO 1.4 K/mm3 (0.0-0.8); MONOCYTES PERCENT AUTO 13.6 % (0.0-8.0); NEUTROPHILS ABSOLUTE AUTO 7.6 K/mm3 (1.8-7.7); NEUTROPHILS PERCENT AUTO 72.6 % (41.0-71.0); PLATELET COUNT,PLT 168 K/mm3 (150-400); RED BLOOD CELL COUNT 3.54 M/mm3 (4.52-5.90); WHITE BLOOD CELL COUNT,WBC 10.52 K/mm3 (3.9-11.3)
[2024-03-19] MEDS: Albuterol/Ipratropium 3.0-0.5 MG/3 ML Neb Soln ONE (21:14)
[2024-03-19 21:33] LABS: A/G RATIO 1.1 (1-2); ALANINE AMINOTRANSFERASE,ALT 30 U/L (16-63); ALBUMIN 3.5 g/dl (3.4-5.0); ALKALINE PHOSPHATASE 96 U/L (46-116); ANION GAP 12.7 (5-15); ASPARTATE AMNIOTRANSFERASE,AST 31 U/L (15-37); BILIRUBIN TOTAL 1.1 mg/dL (0.2-1.0); BLOOD UREA NITROGEN,BUN 37 mg/dL (7-18); BUN/CREATININE RATIO 21.8 (14-18); C-REACTIVE PROTEIN 8.24 mg/dL (<0.30); CALCIUM 8.3 mg/dL (8.5-10.1); CARBON DIOXIDE,CO2 29 mEq/L (21-32); CHLORIDE,CL 100 mEq/L (98-107); CREATININE 1.7 mg/dL (0.7-1.3); ESTIMATED GFR 40 mL/min (>60); GLUCOSE RANDOM 111 mg/dL (70-99); POTASSIUM,K 3.7 mEq/L (3.5-5.1); PROTEIN TOTAL,TP 6.6 g/dl (6.4-8.2); SODIUM,NA 138 mEq/L (136-145)
[2024-03-19 22:14] LABS: CORONAVIRUS COVID-19 NAA POSITIVE (NEGATIVE); INFLUENZA A NAA NEGATIVE (NEGATIVE); RESPIRATORY SYNCYTIAL VIR NAA NEGATIVE (NEGATIVE)
[2024-03-19] MEDS: Sodium Chloride 0.9% 1,000 ML IV SCH (23:26)
[2024-03-20] MEDS: traZODone 50 MG Tab PO ONE (03:39)
[2024-03-20] MEDS: Levofloxacin 500 MG Tab PO ONE (08:46)
[2024-03-20 11:08] VITALS: BP 115/59; PULSE 64
[2024-03-20] MEDS ORDERED: Melatonin 3 MG Tab PO SCH (21:00)
== END 2024-03-20 10:10 | disposition home or self-care (01) ==
LOC: JD.ED 20:22
DX: U07.1 COVID-19 (principal); I11.0 Hypertensive heart disease with heart failure; I50.9 Heart failure, unspecified; I48.91 Unspecified atrial fibrillation; J44.9 Chronic obstructive pulmonary disease, unspecified; Z86.73 Personal history of transient ischemic attack (TIA), and cerebral infarction without residual deficits; Z86.16 Personal history of COVID-19; Z90.49 Acquired absence of other specified parts of digestive tract; Z79.82 Long term (current) use of aspirin; Z79.899 Other long term (current) drug therapy; Z88.8 Allergy status to other drugs, medicaments and biological substances; Z88.5 Allergy status to narcotic agent
CPT/HCPCS: 0241U; 36415; 71045; 80053; 85025; 86140; 93005; 94640; 99285; A9270; J7030; J7620-GY

== ENCOUNTER 2024-04-11 16:59 | Emergency (ER) | payer MEDICARE, OTHER | END 2024-04-11 17:35 | disposition left against medical advice (07) | LOC: JD.ED 16:59 | DX: Z53.21 Procedure and treatment not carried out due to patient leaving prior to being seen by health care provider (principal) ==

== ENCOUNTER 2024-11-24 21:35 | Inpatient (IN) | payer MEDICARE, OTHER ==
[2024-11-24] MEDS ORDERED: Sodium Chloride 0.9% 10 ML Syringe FLUSH PRN (22:00)
[2024-11-24 22:13] LABS: BASOPHILS ABSOLUTE AUTO 0.0 K/mm3 (0.0-0.2); BASOPHILS PERCENT AUTO 0.2 % (0.0-1.0); EOSINOPHILS ABSOLUTE AUTO 0.2 K/mm3 (0.0-0.4); EOSINOPHILS PERCENT AUTO 1.8 % (0.0-6.0); IMMATURE GRAN ABSOLUTE AUTO 0.06 K/mm3 (0.00-0.05); IMMATURE GRAN PERCENT AUTO 0.5 % (0.0-0.4); LYMPHOCYTES ABSOLUTE AUTO 1.1 K/mm3 (1.0-4.8); LYMPHOCYTES PERCENT AUTO 9.1 % (24.0-44.0); MEAN PLATELET VOLUME 12.0 fl (9.4-12.4); MONOCYTES ABSOLUTE AUTO 1.5 K/mm3 (0.0-0.8); MONOCYTES PERCENT AUTO 11.9 % (0.0-8.0); NEUTROPHILS ABSOLUTE AUTO 9.5 K/mm3 (1.8-7.7); NEUTROPHILS PERCENT AUTO 76.5 % (41.0-71.0); NRBC ABSOLUTE 0.00 (0.00-0.02); NRBC PERCENT 0.0 % (0.0-0.2); PLATELET COUNT,PLT 205 K/mm3 (150-400); RED BLOOD CELL COUNT 3.27 M/mm3 (4.52-5.90); WHITE BLOOD CELL COUNT,WBC 12.46 K/mm3 (3.9-11.3)
[2024-11-24 22:50] LABS: LACTIC ACID 0.8 mmol/L (0.4-2.0)
[2024-11-24] MEDS: methylPREDNISolone Sodium Succinate 125 MG/2 ML SDV IVPUSH ONE (22:55)
[2024-11-24 22:57] LABS: A/G RATIO 1.2 (1-2); ALANINE AMINOTRANSFERASE,ALT 35.0 U/L (16-63); ASPARTATE AMNIOTRANSFERASE,AST 16.0 U/L (15-37); BILIRUBIN TOTAL 0.6 mg/dL (0.2-1.0); BLOOD UREA NITROGEN,BUN 56.0 mg/dL (7-18); CARBON DIOXIDE,CO2 34.0 mEq/L (21-32); CHLORIDE,CL 102.0 mEq/L (98-107); CREATININE 1.8 mg/dL (0.7-1.3); ESTIMATED GFR 37.0 mL/min (>60); GLUCOSE RANDOM 117.0 mg/dL (70-99); POTASSIUM,K 4.5 mEq/L (3.5-5.1); PROTEIN TOTAL,TP 6.9 g/dl (6.4-8.2); SODIUM,NA 140.0 mEq/L (136-145); TROPONIN I HIGH SENSITIVITY 22.0 pg/mL (<=76); TSH 4.205 uIU/mL (0.358-3.74)
[2024-11-24 22:58] LABS: EST CRCL DRUG DOSING (CG) 32.11 mL/min
[2024-11-24 23:18] LABS: T4 FREE 0.97 ng/dL (0.76-1.46)
[2024-11-25 00:04] LABS: CORONAVIRUS COVID-19 NAA NEGATIVE (NEGATIVE); INFLUENZA A NAA NEGATIVE (NEGATIVE); RESPIRATORY SYNCYTIAL VIR NAA NEGATIVE (NEGATIVE)
[2024-11-25] MEDS: Furosemide 40 MG/4 ML VIAL IVPUSH ONE (00:37)
[2024-11-25 04:40] LABS: BASOPHILS ABSOLUTE AUTO 0.0 K/mm3 (0.0-0.2); BASOPHILS PERCENT AUTO 0.1 % (0.0-1.0); EOSINOPHILS ABSOLUTE AUTO 0.0 K/mm3 (0.0-0.4); EOSINOPHILS PERCENT AUTO 0.1 % (0.0-6.0); IMMATURE GRAN ABSOLUTE AUTO 0.09 K/mm3 (0.00-0.05); IMMATURE GRAN PERCENT AUTO 0.7 % (0.0-0.4); LYMPHOCYTES ABSOLUTE AUTO 0.6 K/mm3 (1.0-4.8); LYMPHOCYTES PERCENT AUTO 4.7 % (24.0-44.0); MEAN PLATELET VOLUME 11.8 fl (9.4-12.4); MONOCYTES ABSOLUTE AUTO 0.4 K/mm3 (0.0-0.8); MONOCYTES PERCENT AUTO 3.1 % (0.0-8.0); NEUTROPHILS ABSOLUTE AUTO 11.2 K/mm3 (1.8-7.7); NEUTROPHILS PERCENT AUTO 91.3 % (41.0-71.0); NRBC ABSOLUTE 0.00 (0.00-0.02); NRBC PERCENT 0.0 % (0.0-0.2); PLATELET COUNT,PLT 169 K/mm3 (150-400); RED BLOOD CELL COUNT 3.07 M/mm3 (4.52-5.90); WHITE BLOOD CELL COUNT,WBC 12.23 K/mm3 (3.9-11.3)
[2024-11-25 04:52] LABS: APPEARANCE,URINE CLEAR (Clear); GLUCOSE,URINE NEGATIVE (Negative); OCCULT BLOOD,URINE NEGATIVE (Negative)
[2024-11-25 05:16] LABS: A/G RATIO 1.1 (1-2); ALANINE AMINOTRANSFERASE,ALT 26.0 U/L (16-63); ASPARTATE AMNIOTRANSFERASE,AST 12.0 U/L (15-37); BILIRUBIN TOTAL 0.7 mg/dL (0.2-1.0); BLOOD UREA NITROGEN,BUN 55.0 mg/dL (7-18); CARBON DIOXIDE,CO2 28.0 mEq/L (21-32); CHLORIDE,CL 101.0 mEq/L (98-107); CREATININE 1.8 mg/dL (0.7-1.3); EST CRCL DRUG DOSING (CG) 35.14 mL/min; ESTIMATED GFR 37.0 mL/min (>60); GLUCOSE RANDOM 188.0 mg/dL (70-99); PHOSPHORUS 4.0 mg/dL (2.6-4.7); POTASSIUM,K 4.5 mEq/L (3.5-5.1); PROTEIN TOTAL,TP 6.4 g/dl (6.4-8.2); SODIUM,NA 138.0 mEq/L (136-145)
[2024-11-25] MEDS ORDERED: Triamcinolone Acetonide 0.1% Crm 15 GM Tube TOP PRN (08:36)
[2024-11-25] MEDS ORDERED: 50% Dextrose in Water 50 ML Syringe IVPUSH PRN (08:56)
[2024-11-25] MEDS ORDERED: LORazepam 2 MG/ML SDV IV PRN (09:01)
[2024-11-25 10:46] LABS: FOLIC ACID 20.0 ng/mL (8.6-58.9)
[2024-11-25] MEDS: Insulin Lispro 100 Unit/ML 3 ML KwikPen SUBCUT SCH (11:37)
[2024-11-26 05:37] LABS: BASOPHILS ABSOLUTE AUTO 0.0 K/mm3 (0.0-0.2); BASOPHILS PERCENT AUTO 0.2 % (0.0-1.0); EOSINOPHILS ABSOLUTE AUTO 0.0 K/mm3 (0.0-0.4); EOSINOPHILS PERCENT AUTO 0.0 % (0.0-6.0); IMMATURE GRAN ABSOLUTE AUTO 0.10 K/mm3 (0.00-0.05); IMMATURE GRAN PERCENT AUTO 0.7 % (0.0-0.4); LYMPHOCYTES ABSOLUTE AUTO 1.0 K/mm3 (1.0-4.8); LYMPHOCYTES PERCENT AUTO 7.6 % (24.0-44.0); MEAN PLATELET VOLUME 11.6 fl (9.4-12.4); MONOCYTES ABSOLUTE AUTO 1.1 K/mm3 (0.0-0.8); MONOCYTES PERCENT AUTO 7.9 % (0.0-8.0); NEUTROPHILS ABSOLUTE AUTO 11.3 K/mm3 (1.8-7.7); NEUTROPHILS PERCENT AUTO 83.6 % (41.0-71.0); NRBC ABSOLUTE 0.00 (0.00-0.02); NRBC PERCENT 0.0 % (0.0-0.2); PLATELET COUNT,PLT 176 K/mm3 (150-400); RED BLOOD CELL COUNT 2.98 M/mm3 (4.52-5.90); WHITE BLOOD CELL COUNT,WBC 13.56 K/mm3 (3.9-11.3)
[2024-11-26 06:13] LABS: BLOOD UREA NITROGEN,BUN 64.0 mg/dL (7-18); CARBON DIOXIDE,CO2 31.0 mEq/L (21-32); CREATININE 1.5 mg/dL (0.7-1.3); EST CRCL DRUG DOSING (CG) 42.17 mL/min; ESTIMATED GFR 46.0 mL/min (>60); GLUCOSE RANDOM 136.0 mg/dL (70-99)
[2024-11-26 06:39] LABS: CHLORIDE,CL 103.0 mEq/L (98-107); POTASSIUM,K 4.5 mEq/L (3.5-5.1); SODIUM,NA 142.0 mEq/L (136-145)
[2024-11-26] MEDS: Sennosides/Docusate Sodium 50-8.6 MG Tab PO PRN (11:44)
[2024-11-26] MEDS: Bumetanide 1 MG/4 ML MDV IVPUSH ONE (12:35)
[2024-11-27 05:48] LABS: BASOPHILS ABSOLUTE AUTO 0.0 K/mm3 (0.0-0.2); BASOPHILS PERCENT AUTO 0.2 % (0.0-1.0); EOSINOPHILS ABSOLUTE AUTO 0.1 K/mm3 (0.0-0.4); EOSINOPHILS PERCENT AUTO 1.2 % (0.0-6.0); IMMATURE GRAN ABSOLUTE AUTO 0.08 K/mm3 (0.00-0.05); IMMATURE GRAN PERCENT AUTO 0.7 % (0.0-0.4); LYMPHOCYTES ABSOLUTE AUTO 1.8 K/mm3 (1.0-4.8); LYMPHOCYTES PERCENT AUTO 14.7 % (24.0-44.0); MEAN PLATELET VOLUME 12.0 fl (9.4-12.4); MONOCYTES ABSOLUTE AUTO 1.4 K/mm3 (0.0-0.8); MONOCYTES PERCENT AUTO 11.6 % (0.0-8.0); NEUTROPHILS ABSOLUTE AUTO 8.7 K/mm3 (1.8-7.7); NEUTROPHILS PERCENT AUTO 71.6 % (41.0-71.0); NRBC ABSOLUTE 0.00 (0.00-0.02); NRBC PERCENT 0.0 % (0.0-0.2); PLATELET COUNT,PLT 201 K/mm3 (150-400); RED BLOOD CELL COUNT 3.43 M/mm3 (4.52-5.90); WHITE BLOOD CELL COUNT,WBC 12.07 K/mm3 (3.9-11.3)
[2024-11-27 06:51] LABS: BLOOD UREA NITROGEN,BUN 64.0 mg/dL (7-18); CARBON DIOXIDE,CO2 34.0 mEq/L (21-32); CHLORIDE,CL 104.0 mEq/L (98-107); CREATININE 1.5 mg/dL (0.7-1.3); EST CRCL DRUG DOSING (CG) 42.17 mL/min; ESTIMATED GFR 46.0 mL/min (>60); GLUCOSE RANDOM 108.0 mg/dL (70-99); POTASSIUM,K 4.1 mEq/L (3.5-5.1); SODIUM,NA 143.0 mEq/L (136-145)
[2024-11-27] MEDS: Sodium Chloride 3% Inhalation Soln 4 ML Neb NEB SCH (10:31)
[2024-11-27] MEDS: methylPREDNISolone Sodium Succinate 40 MG/1 ML SDV IVPUSH SCH (10:57)
[2024-11-27] MEDS: Bumetanide 1 MG/4 ML MDV IVPUSH ONE ×2 (11:26→11:32)
[2024-11-28 05:34] LABS: BASOPHILS ABSOLUTE AUTO 0.0 K/mm3 (0.0-0.2); BASOPHILS PERCENT AUTO 0.2 % (0.0-1.0); EOSINOPHILS ABSOLUTE AUTO 0.0 K/mm3 (0.0-0.4); EOSINOPHILS PERCENT AUTO 0.0 % (0.0-6.0); IMMATURE GRAN ABSOLUTE AUTO 0.10 K/mm3 (0.00-0.05); IMMATURE GRAN PERCENT AUTO 0.8 % (0.0-0.4); LYMPHOCYTES ABSOLUTE AUTO 0.8 K/mm3 (1.0-4.8); LYMPHOCYTES PERCENT AUTO 6.0 % (24.0-44.0); MEAN PLATELET VOLUME 11.4 fl (9.4-12.4); MONOCYTES ABSOLUTE AUTO 0.1 K/mm3 (0.0-0.8); MONOCYTES PERCENT AUTO 0.8 % (0.0-8.0); NEUTROPHILS ABSOLUTE AUTO 12.2 K/mm3 (1.8-7.7); NEUTROPHILS PERCENT AUTO 92.2 % (41.0-71.0); NRBC ABSOLUTE 0.00 (0.00-0.02); NRBC PERCENT 0.0 % (0.0-0.2); PLATELET COUNT,PLT 214 K/mm3 (150-400); RED BLOOD CELL COUNT 3.51 M/mm3 (4.52-5.90); WHITE BLOOD CELL COUNT,WBC 13.20 K/mm3 (3.9-11.3)
[2024-11-28 05:50] LABS: BLOOD UREA NITROGEN,BUN 75.0 mg/dL (7-18); CARBON DIOXIDE,CO2 31.0 mEq/L (21-32); CHLORIDE,CL 101.0 mEq/L (98-107); CREATININE 1.7 mg/dL (0.7-1.3); EST CRCL DRUG DOSING (CG) 37.21 mL/min; ESTIMATED GFR 40.0 mL/min (>60); GLUCOSE RANDOM 163.0 mg/dL (70-99); POTASSIUM,K 4.7 mEq/L (3.5-5.1); SODIUM,NA 140.0 mEq/L (136-145)
[2024-11-28 07:29] VITALS: BP 128/91; PULSE 75
== END 2024-11-28 10:40 | DRG 291 ==
LOC: JD.ED 21:35 → JD.MS 23:58
PROVIDERS: ADMIT Student in an Organized Health Care Education/Training Program; ATTEND Internal Medicine
PROC: 3E03329 Introduction of Other Anti-infective into Peripheral Vein, Percutaneous Approach (ICD-10-PCS; principal; 2024-11-24)
PROC: 5A09357 Assistance with Respiratory Ventilation, Less than 24 Consecutive Hours, Continuous Positive Airway Pressure (ICD-10-PCS; 2024-11-25)
DX: I13.0 Hypertensive heart and chronic kidney disease with heart failure and stage 1 through stage 4 chronic kidney disease, or unspecified chronic kidney disease (principal); I50.9 Heart failure, unspecified; L03.116 Cellulitis of left lower limb; R79.89 Other specified abnormal findings of blood chemistry; I50.33 Acute on chronic diastolic (congestive) heart failure; J96.01 Acute respiratory failure with hypoxia; J44.1 Chronic obstructive pulmonary disease with (acute) exacerbation; I48.92 Unspecified atrial flutter; I25.810 Atherosclerosis of coronary artery bypass graft(s) without angina pectoris; I48.91 Unspecified atrial fibrillation; Z66 Do not resuscitate; F32.A Depression, unspecified; H54.7 Unspecified visual loss; M19.90 Unspecified osteoarthritis, unspecified site; M54.9 Dorsalgia, unspecified; G89.29 Other chronic pain; E11.42 Type 2 diabetes mellitus with diabetic polyneuropathy; E11.51 Type 2 diabetes mellitus with diabetic peripheral angiopathy without gangrene; E11.22 Type 2 diabetes mellitus with diabetic chronic kidney disease; G47.33 Obstructive sleep apnea (adult) (pediatric); D53.9 Nutritional anemia, unspecified; N18.9 Chronic kidney disease, unspecified; F41.9 Anxiety disorder, unspecified; E66.9 Obesity, unspecified; E03.9 Hypothyroidism, unspecified; R94.31 Abnormal electrocardiogram [ECG] [EKG]; D72.829 Elevated white blood cell count, unspecified; K59.00 Constipation, unspecified; Z86.73 Personal history of transient ischemic attack (TIA), and cerebral infarction without residual deficits; Z68.32 Body mass index [BMI] 32.0-32.9, adult; Z86.16 Personal history of COVID-19; Z86.718 Personal history of other venous thrombosis and embolism; Z95.1 Presence of aortocoronary bypass graft; I25.2 Old myocardial infarction; Z95.5 Presence of coronary angioplasty implant and graft; Z98.890 Other specified postprocedural states; Z98.49 Cataract extraction status, unspecified eye; Z90.89 Acquired absence of other organs; Z79.01 Long term (current) use of anticoagulants; Z87.891 Personal history of nicotine dependence; Z95.0 Presence of cardiac pacemaker; Z88.8 Allergy status to other drugs, medicaments and biological substances; Z79.899 Other long term (current) drug therapy; Z79.890 Hormone replacement therapy; Z79.84 Long term (current) use of oral hypoglycemic drugs; Z90.49 Acquired absence of other specified parts of digestive tract; Z91.148 Patient's other noncompliance with medication regimen for other reason
CPT/HCPCS: 36415; 71045; 80053; 83605; 83735; 83880; 84439; 84443; 84484; 85025; 87040 ×2; 87637; 94640; 96374; 96375; 99285; A9270 ×3; J0690; J2919; 80048; 81003; 82607; 82746; 82947; 83036; 84100; 86140; 93005; 93306; 94660; 94761; 97110-GP; 97116-GP; 97161-GP; 97167-GO; 97530-GP; 97535-GO; 99223; 99233; J0696; J1938; J3490; J7512